=== PATIENT | female | born 1950 | race Caucasian/White ===

== ENCOUNTER 2022-11-06 09:46 | Outpatient (REF) | payer MEDICARE, OTHER, SELFPAY ==
--- NOTE | ~2022-11-06 | XR_ITS ---
EXAMINATION: XR LUMBOSACRAL SPINE CLINICAL INFORMATION: Spondylolisthesis, lumbar region COMPARISON: None available. TECHNIQUE: 4 views of the lumbar spine, inclusive of flexion and extension views, were obtained. FINDINGS: The bones are diffusely demineralized. There is marked curve of the lumbar spine, convex left. This is somewhat limits evaluation of disc space heights. There are 5 nonrib-bearing lumbar-type vertebral bodies. The height of the lumbar vertebral bodies is well-maintained. There is slight anterior wedge compression of T11. There is disc space narrowing with marginal osteophyte formation at L1-L2, L3-L4, and L4-L5. There is multilevel degenerative facet joint disease, marked at L4-L5 and L5-S1. There is grade 1 anterolisthesis of L4 with respect to L5 and retrolisthesis of L2 with respect to L3 which slightly decreases on flexion is unchanged on extension. A 0.7 cm sclerotic density projects over the mid sacrum on the lateral view. XR/XR lumbar spine 4V min IMPRESSION: 1. Marked curve of the lumbar spine, convex left. 2. Multilevel degenerative disc disease and degenerative facet joint disease. 3. Retrolisthesis of L2 with respect to L3 and grade 1 anterolisthesis of L4 with respect to L5, as discussed above. 4. 0.7 cm sclerotic density projecting over the mid sacrum on the lateral view.
== END 2022-11-06 09:47 | disposition home or self-care (01) ==
LOC: HO.HOSX 09:46
PROVIDERS: Visit Provider Neurological Surgery
DX: M48.062 Spinal stenosis, lumbar region with neurogenic claudication (principal); M41.56 Other secondary scoliosis, lumbar region; M43.16 Spondylolisthesis, lumbar region
CPT/HCPCS: 72110; 99202

== ENCOUNTER 2022-11-06 09:46 | Outpatient (AMB) | payer MEDICARE, OTHER, SELFPAY ==
--- NOTE | 2022-11-06 10:14 | HO.SPINEOV ---
Intake Intake Visit Reasons: Back pain Intake Note: Mrs. Vazquez is here today c/o back pain. MRI done at [facility]/brought [facility]. Dietitian Consultant Required: No Assessment & Plan Assessment & Plan (1) Lumbar stenosis with neurogenic claudication: Code(s): M48.062 - Spinal stenosis, lumbar region with neurogenic claudication Plan: Dear colleague Thank you for referring Deya Vazquez to the office today with a chief complaint of right thigh pain and weakness. HPI: This 72-year-old female has a long history of back pain for which she received injections. Two years ago her symptoms change. Radicular symptoms became more prominent. She is describing a severe pain that starts on the right side of her back and then wraps around her hip to the front of her thigh. Initially, the pain was so severe that she could not sneeze or cough. She also noticed weakness of her right leg. She was able to push 50 lb easily but cannot longer do that with her right leg. She had an L4-5 injection done in September which reduced her radicular pain significantly. The weakness persists. She saw Dr. Hope for this problem and is seeing me for a 3rd opinion. The following conservative treatment options were tried without success antiinflammatories, tylenol, physician guided home exercise plan, cortisone shots, aqua therapy PMH: Cervical fusion, right knee replacement, appendectomy Social history: Nonsmoker Medications: Address the 10, pantoprazole, , chlorthalidone Allergies: NKDA Physical Exam: Pleasant female. On inspection there is atrophy of the tibialis anterior muscle on the right. Motor exam shows a grade 4 5 weakness of the iliopsoas on the right side. The remainder of the muscle groups are intact. Sensory exam is intact. No pathological reflexes. Gait is undisturbed. Straight leg raise negative Radiological Studies: MRI done at [facility] on 01/20/2022 shows a grade 1-2 L4-5 spondylolisthesis with severe spinal stenosis and bilateral L4 foraminal stenosiss. There is moderate L2-3 and L3-4 spinal stenosis with severe right L2 and L3 foraminal stenosis associated with a lumbar degenerative scoliosis. The MRI findings are confirmed with a standing x-ray. Impression/Plan: This patient is most likely symptomatic from her grade 2 L4-5 spondylolisthesis with severe central and foraminal stenosis. Unfortunately, a simple laminotomy and foraminotomy is in my opinion not the right choice. I offered her a minimally invasive correction of the L4-5 spondylolisthesis to indirectly decompress the central canal and exiting L4 nerve roots. She is aware that additional surgery is required to correct the L2-L4 scoliosis. Currently, the pain is controlled. She scheduled to undergo a 2nd epidural steroid injection in December. She will return to my office if the radiculopathy returns despite the injections. Thank you for allowing me to participate in your patients care. total time spent was 50 minutes in counseling ,coordination of plan, personal review of imaging, surgical decision making and subsequent plan David Powell MD, PhD Spine Fellowship Trained Neurosurgeon Director, [facility] [place] [facility] (2) Scoliosis of lumbar region due to degenerative disease of spine in adult: Code(s): M41.56 - Other secondary scoliosis, lumbar region (3) Spondylolisthesis, lumbar region: Code(s): M43.16 - Spondylolisthesis, lumbar region Orders: Orders XR lumbar spine 4V min Today M41.56 - Other secondary scoliosis, lumbar region, M43.16 - Spondylolisthesis, lumbar region, M48.062 - Spinal stenosis, lumbar region with neurogenic claudication Coding Level of Care Code New Pt Level 4 (74392) Diagnoses Lumbar stenosis with neurogenic claudication M48.062 Scoliosis of lumbar region due to degenerative disease of spine in adult M41.56 Spondylolisthesis, lumbar region M43.16
== END 2022-11-06 10:53 | disposition home or self-care (01) ==
PROVIDERS: PCP Registered Nurse; Visit Provider Neurological Surgery
DX: M48.062 Spinal stenosis, lumbar region with neurogenic claudication (principal); M41.56 Other secondary scoliosis, lumbar region; M43.16 Spondylolisthesis, lumbar region
CPT/HCPCS: 99204

== ENCOUNTER 2023-06-25 14:26 | Outpatient (AMB) | payer MEDICARE, SELFPAY ==
--- NOTE | 2023-06-25 15:52 | A.SPINEOV_ITS ---
Intake Intake Visit Reasons: discuss possible surgery Intake Note: Ms. Vazquez is here today to discuss possible surgery. Wire Products Inspector Required: No Assessment & Plan Assessment & Plan (1) Scoliosis of lumbar region due to degenerative disease of spine in adult: Code(s): M41.56 - Other secondary scoliosis, lumbar region (2) Lumbar stenosis with neurogenic claudication: Code(s): M48.062 - Spinal stenosis, lumbar region with neurogenic claudication Plan Dear colleague, On 06/25/2023, I saw for follow-up Deya Davenport. She stands in my office crying from pain radiating into her right thigh and severe back pain, especially in the coccyx area. The pain is much worse than the last time I saw. She recently had a prednisone course which gave her relief for 2 days. She scheduled for an additional epidural steroid injection and possible facet block. It is clear that this patient needs an intervention to address her back pain and lumbar radiculopathy. She has a lumbar degenerative scoliosis from L to L5 with a lateral listhesis at L3-4 and severe foraminal stenosis at L2-L3 and L4 on the right side. In addition she has an grade 2 L4-5 spondylolisthesis. I am 90% sure that her symptoms are related to the grade 2 L4-5 spondylolisthesis but I can not fully exclude involvement of the other 2 levels, especially L3-L4. Therefore based on her current clinical condition, I think it is more appropriate to perform an L2-L5 oblique lumbar interbody fusion instead of doing the L4-5 level only. She is scheduled for August 04. She will get clearance from her lead pharmacy technician and primary care physician. We spent 35 minutes in this consult to discuss imaging and plan of care. David Powell MD, PhD Spine Fellowship Trained Neurosurgeon Director, [facility] [place] [facility] Coding Level of Care Code Est Pt Level 4 (91723) Diagnoses Scoliosis of lumbar region due to degenerative disease of spine in adult M41.56 Lumbar stenosis with neurogenic claudication M48.062
== END 2023-06-25 16:23 | disposition home or self-care (01) ==
PROVIDERS: PCP Registered Nurse; Visit Provider Neurological Surgery
DX: M41.56 Other secondary scoliosis, lumbar region (principal); M48.062 Spinal stenosis, lumbar region with neurogenic claudication
CPT/HCPCS: 99214

== ENCOUNTER → 2023-06-25 14:26 | Outpatient (BNVA) | payer MEDICARE, SELFPAY | PROVIDERS: PCP Registered Nurse; Visit Provider Neurological Surgery | DX: M41.56 Other secondary scoliosis, lumbar region (principal); M48.062 Spinal stenosis, lumbar region with neurogenic claudication | CPT/HCPCS: 99212 ==

== ENCOUNTER 2023-07-29 05:52 | Inpatient (IN) | payer MEDICARE, SELFPAY ==
--- NOTE | 2023-07-28 14:21 | P.CONAN_ITS ---
Documented by User: Janet Oneil NP 07/28/23 14:25 HPI - Anesthesia Eval Consult details Narrative: 73yo F for L2-5 Oblique Lumbar Interbody Fusion Pulmo cleared Medically cleared Cardiac cleared PMFSH Active Problems Active Problems: All Active Problems Lumbar stenosis with neurogenic claudication (Acute) Scoliosis of lumbar region due to degenerative disease of spine in adult (Acute) Spondylolisthesis, lumbar region (Acute) Past Medical History Medical History HTN (hypertension) History of endometrial biopsy Hemorrhage of rectum and anus Concussion Impaired fasting glucose Palpitations History of headache Fibromyositis Lumbar radiculopathy Back pain Degenerative, intervertebral disc, cervical Shoulder joint pain Osteoarthritis of knee UTI (urinary tract infection) Irritable bowel syndrome COPD (chronic obstructive pulmonary disease) Hyperlipidemia Vitamin D deficiency Herpes simplex Surgical History Surgical History Hx of cataract surgery History of conization of cervix H/O colonoscopy History of total right knee replacement History of esophagogastroduodenoscopy (EGD) H/O excision of lamina of cervical vertebra for decompression of spinal cord Hx of appendectomy Hx of tonsillectomy History of abdominoplasty Hx of carpal tunnel repair Hx of breast biopsy Hx of tubal ligation Social History Social History Patient Tobacco Use Status: Former Tobacco user Quit Date: 1983 Tobacco use type: Cigarette Years Smoked: 10 Smoked in Last 30 Days: No Use of substances other than those prescribed or required for medical reasons: No Are you DNR?: No Advance Directives: No Advance Directives Information Provided: No Meds Allergies Allergy/AdvReac Type Severity Reaction Status Date / Time diphenhydramine AdvReac Mild Agitated Verified 07/29/23 06:17 meloxicam AdvReac Mild Vomiting Verified 07/29/23 06:17 Home Medications ?Medication ?Instructions ?Recorded ?Confirmed ?Last Taken ?Type acetaminophen 500 mg tablet 500 mg PO Q6H PRN Outbreak 07/25/23 07/29/23 07/27/23 History albuterol sulfate 90 mcg/actuation 2 puff inhalation Q6H PRN wheezing 07/25/23 07/29/23 Unknown History aerosol inhaler atorvastatin 20 mg tablet 20 mg PO DAILY 07/25/23 07/29/23 07/29/23 History biotin 5 mg capsule 5 mg PO DAILY 07/25/23 07/29/23 07/27/23 History chlorthalidone 25 mg tablet 25 mg PO DAILY 07/25/23 07/29/23 07/29/23 History clonazepam 0.5 mg tablet 0.5 mg PO DAILY PRN Anxiety 07/25/23 07/29/23 Unknown History multivitamin 1 tab PO DAILY 07/25/23 07/29/23 07/27/23 History pantoprazole 40 mg tablet,delayed 40 mg PO DAILY 07/25/23 07/29/23 07/29/23 History release valacyclovir 1 gram tablet 1,000 mg PO Q12H 07/25/23 07/29/23 07/24/23 History Exam Pertinent Lab Results Pertinent Lab Results: BMP and CBC from outside facility 06/2023 WNL Narrative Narrative: EKG 07/2023 NSR @ 76 Assessment and Plan Assessment Anesthesia Assessment: Chart Reviewed Documented by User: Giovanna Jeff MD 07/29/23 08:09 [facility] Past Medical History Medical History HTN (hypertension) History of endometrial biopsy Hemorrhage of rectum and anus Concussion Impaired fasting glucose Palpitations History of headache Fibromyositis Lumbar radiculopathy Back pain Degenerative, intervertebral disc, cervical Shoulder joint pain Osteoarthritis of knee UTI (urinary tract infection) Irritable bowel syndrome COPD (chronic obstructive pulmonary disease) Hyperlipidemia Vitamin D deficiency Herpes simplex Surgical History Surgical History Hx of cataract surgery History of conization of cervix H/O colonoscopy History of total right knee replacement History of esophagogastroduodenoscopy (EGD) H/O excision of lamina of cervical vertebra for decompression of spinal cord Hx of appendectomy Hx of tonsillectomy History of abdominoplasty Hx of carpal tunnel repair Hx of breast biopsy Hx of tubal ligation History of Problems with Anesthesia: No Social History Social History Patient Tobacco Use Status: Former Tobacco user Quit Date: 1983 Tobacco use type: Cigarette Years Smoked: 10 Smoked in Last 30 Days: No Use of substances other than those prescribed or required for medical reasons: No Are you DNR?: No Advance Directives: No Advance Directives Information Provided: No Meds Allergies Allergy/AdvReac Type Severity Reaction Status Date / Time diphenhydramine AdvReac Mild Agitated Verified 07/29/23 06:17 meloxicam AdvReac Mild Vomiting Verified 07/29/23 06:17 Home Medications ?Medication ?Instructions ?Recorded ?Confirmed ?Last Taken ?Type acetaminophen 500 mg tablet 500 mg PO Q6H PRN Outbreak 07/25/23 07/29/23 07/27/23 History albuterol sulfate 90 mcg/actuation 2 puff inhalation Q6H PRN wheezing 07/25/23 07/29/23 Unknown History aerosol inhaler atorvastatin 20 mg tablet 20 mg PO DAILY 07/25/23 07/29/23 07/29/23 History biotin 5 mg capsule 5 mg PO DAILY 07/25/23 07/29/23 07/27/23 History chlorthalidone 25 mg tablet 25 mg PO DAILY 07/25/23 07/29/23 07/29/23 History clonazepam 0.5 mg tablet 0.5 mg PO DAILY PRN Anxiety 07/25/23 07/29/23 Unknown History multivitamin 1 tab PO DAILY 07/25/23 07/29/23 07/27/23 History pantoprazole 40 mg tablet,delayed 40 mg PO DAILY 07/25/23 07/29/23 07/29/23 History release valacyclovir 1 gram tablet 1,000 mg PO Q12H 07/25/23 07/29/23 07/24/23 History Exam Airway Mallampati Class: II TM Dist: >3cm Neck ROM: Limited Loose/Missing/Broken Teeth: No Heart: RRR Lungs: CTA Assessment and Plan Assessment Anesthesia Assessment: Anesthesia Plan Discussed Final Anesthetic Review History of Problems with Anesthesia: No NPO: Yes ASA Class: II Final Preanesthetic Review: Meds/Allgs Chart Reviewed, Consent Obtained/Reviewed and Anes Risks/Benef Reviewed Patient Risk: Low Procedure Risk: Intermediate Anesthetic Plan Anesthetic Plan: GA Disposition: Standard PACU
[2023-07-29] VITALS (15 sets, daily range): BP systolic 102–141; BP diastolic 55–76; PULSE 61–81; RESP 14–20; TEMP 36.1–36.8; O2SAT 94–100; BMI 28.6
--- NOTE | ~2023-07-29 | FL_ITS ---
INDICATION: Intraoperative fluoroscopy. FLUOROSCOPY: Fluoroscopy Time: 0.5 minutes Dose/air kerma: 24.3 mGy Images saved: 4 FINDINGS: Multiple intraoperative fluoroscopic images are submitted during surgical procedure of the lumbar spine. Correlation with operative report. Evaluation is limited secondary to fluoroscopic technique. IMPRESSION: Intra-operative fluoroscopic imaging provided by radiology during surgical procedure of the lumbar spine. Please refer to operative note for further information.
--- NOTE | ~2023-07-29 | XR_ITS ---
EXAMINATION: XR LUMBOSACRAL SPINE CLINICAL INFORMATION: Post surgery COMPARISON: Previous lumbar spine x-ray November 2022 TECHNIQUE: Three views of the lumbosacral spine. FINDINGS: New posterior fusion hardware with rods and bilateral transpedicular screws at L3-L5 and interbody fusion hardware at the L3-L4 and L4-L5 disc spaces. Curvature of the lower lumbar spine to the left. Mild anterior subluxation of L4 with respect to L3 and L5 measuring 2 mm similar to previous exam. Degenerative spondylosis and degenerative disc disease of the lower thoracic and more proximal lumbar spine. No fracture or dislocation. There is question of free air under both diaphragms. XR/XR lumbar spine 2-3V IMPRESSION: New postsurgical changes from L3 to L5. Question free air. Follow-up x-ray or CT recommended.
--- OUTSIDE RECORDS SUMMARY | 2023-07-29 05:56 | XMS_ITS | Continuity of Care Document ---
Author Organization [facility] Neurosur[facility] y Address [address] [place] [address] [address], [address] [place] [address]- Care Team Providers Care Dog Pound Attendant Name Role Phone Rabia Rivera MD Primary Care Physic sade Encounter [facility] [place]s): 07/16/22 - 07/23/[address], [address] [place] [address]- Attending Physician: Kendall Garrtet MD Referring Physician: Rabia Rivera MD Allergies, Adverse Reactions, Alerts No Known Allergies Medications atorvastatin 10 mg oral tablet 1 tablet = 10 mg, By Mouth, Daily, 0 Refills, Maintenance, 04/28/20 15:58:00 EST, Partial fill uponpatient request if the prescription is for a schedule II opioid drug. Start Date: 04/28/20 Status: Ordered Biotin By Mouth, Daily, pt states she is taking 5000 units, 0 Refills, Maintenance, 04/10/10 15:54:14 EST Start Date: 04/10/10 Status: Ordered Brovana 15 mcg/2 mL inhalation solution 1 each, Neb, 2 times a day, # 60 each, 5 Refills, Maintenance, 06/03/22 17:52:00 EST, Solution, [facility]/pharmacy #[id number], J45. 0, 147, cm, 06/03/22 14:49:00 EST, Height, 62.2, kg, 11/13/21 15:28:00 EDT, Dry Weight Start Date: 06/03/22 Status: Ordered budesonide 0.5 mg/2 mL inhalation suspension 0.5 mg, 2, mL, Neb, 2 times a day, # 120 mL, Refills 5, Tot. Refills 5, Maintenance, 06/03/22 17:52:00 EST, Suspension, Route to Pharmacy Electronically, [id number], [facility]/pharmacy #[id number], J45. 0, 147, cm, 06/03/22 14:49:00 EST,... Start Date: 06/03/22 Stop Date: 11/30/22 Status: Ordered chlorthalidone 25 mg oral tablet 25 mg, 1, tablet, By Mouth, Daily, # 30 tablet, Refills 0, Maintenance, 11/16/21 15:28:00 EDT, Partial fill upon patient request if the prescription is for a schedule II opioid drug. Start Date: 11/16/21 Status: Ordered [facility] Refills 0, Maintenance, 06/19/22 10:38:00 EDT, Supply Start Date: 06/19/22 Status: Ordered Multivitamin By Mouth, Daily, 0 Refills, Maintenance Start Date: 04/10/10 Status: Ordered Nebulizer/Compressor See Instructions, # 1 each, Refills 11, Tot. Refills 11, Maintenance, E0570 Nebulizer A7003 Neb Disp set A7014 Neb Non-Disp Filter A7005 Neb non-Disp set A7015 Aerosol Mask A7013 NEb Disp Filter length of need lifetime 99 months Dx Asthma J45.909, ... Start Date: 06/04/22 Status: Ordered oxyCODONE 5 mg oral tablet 5 mg, 1, tablet, By Mouth, Every 4 hours, PRN, # 42 tablet, Refills 0, Tot. Refills 0, Maintenance,as needed for pain, 06/19/22 16:30:00 EDT, Route to Pharmacy Electronically, [facility], Partial fill upon patient request if the prescri... Start Date: 06/19/22 Status: Ordered Protonix 40 mg oral delayed release tablet 1 tablet = 40 mg, By Mouth, Daily, # 30 tablet, 0 Refills, Maintenance, 06/03/22 14:51:00 EST, EC Tablet Start Date: 06/03/22 Status: Ordered Sulindac = 200 mg, By Mouth, Daily, 0 Refills, Maintenance, 06/17/22 15:05:00 EDT, Partial fill upon patientrequest if the prescription is for a schedule II opioid drug. Start Date: 06/17/22 Status: Ordered tiZANidine 4 mg oral capsule 1 capsule = 4 mg, By Mouth, Daily at bedtime, # 30 capsule, 0 Refills, Maintenance, 07/16/22 16:34:00 EDT, [facility]/pharmacy #[id number], Partial fill upon patient request if the prescription is for a schedule II opioid drug., 147.3, cm, 07/16/22 13:30:00 EDT, H... Start Date: 07/16/22 Stop Date: 08/15/22 Status: Ordered tiZANidine 4 mg oral tablet 4 mg, 1, tablet, By Mouth, 3 times a day, PRN, # 90 tablet, Refills 0, Tot. Refills 0, Maintenance,Spasm, 06/19/22 16:30:00 EDT, Route to Pharmacy Electronically, [facility], Partial fill upon patient request if the prescription is for... Start Date: 06/19/22 Status: Ordered vidiscal vidiscal, Refills 0, Maintenance, for hair growth, 10/28/18 9:24:51 EDT, Compound Start Date: 10/28/18 Status: Ordered Problem List Condition Confirmation Course Effective Dates Status Health Status Informant Chronic obstructive pulmonary disease (COPD) Confirmed Active Cyst Confirmed Active Female stress incontinence Confirmed Active Hx of abnormal cervical Pap smear Confirmed Active Hx of hypercholesterolemia Confirmed Active Intervertebral disc disorder Confirmed Active Vital Signs Most recent to oldest [Reference Range]: 1 Height 147.3 cm (07/16/22 1:30 PM) Weight 64.1 kg (07/16/22 1:30 PM) Body Mass Index [18.5-24.99 kg/m2] 29.54 kg/m2 *H* (07/16/22 1:30 PM) Social History Social History Type Response Smoking Status Former smoker; Tobac co user in household: No; Other: pt states she quit smoking 30 years ago; entered on: 08/28/15 Sex Patient Care team information Care Team Personnel Name: Rabia Rivera MD Position: [facility] Outreach Member Role: PCP Address: Address: [address] [place] [address] Name: Olman HARPER, Amanda Position: [facility] RN Member Role: Primary Care Nurse Care Team Related Persons Name: LATOYASPKAEFADI Address: home [address] [place] [address] Name: MARY DYSON Name: SHEA DYSON Address: home [address] [place] [address]
--- OUTSIDE RECORDS SUMMARY | 2023-07-29 05:56 | XMS_ITS | Continuity of Care Document ---
Author Organization [facility] Address [address] [place] [id number]- Care Team Providers Care Dinker Name Role Phone Miguel CORNELL, Rabia Haider Primary Care Physic sade Encounter [facility] Date(s): 11/06/21 - 12/06/21 [facility] [address] [place] [id number] Allergies, Adverse Reactions, Alerts No Known Allergies Medications acetaminophen 325 mg oral tablet 975 mg, By Mouth, Every 8 hours, Refills 0, Maintenance, 02/05/21 9:31:00 EDT, Partial fill upon patient request if the prescription is for a schedule II opioid drug. Start Date: 02/05/21 Status: Ordered aspirin 81 mg oral delayed release tablet 81 mg, 1, tablet, By Mouth, Daily, Refills 0, Maintenance, 03/23/19 13:51:44 EST Start Date: 03/23/19 Status: Ordered atorvastatin 10 mg oral tablet 1 tablet = 10 mg, By Mouth, Daily, 0 Refills, Maintenance, 04/28/20 15:58:00 EST, Partial fill uponpatient request if the prescription is for a schedule II opioid drug. Start Date: 04/28/20 Status: Ordered azithromycin 250 mg oral tablet 1 pack/packet, By Mouth, Once, # 6 tablet, 0 Refills, Soft Stop, 11/06/21 12:03:00 EDT, Tablet, [facility]/pharmacy #[id number], Partial fill upon patient request if the prescription is for a schedule II opioid drug., 147, cm, 03/07/21 13:00:00 EST, Height, 63, kg... Start Date: 11/06/21 Status: Ordered Biotin By Mouth, Daily, pt states she is taking 5000 units, 0 Refills, Maintenance, 04/10/10 15:54:14 EST Start Date: 04/10/10 Status: Ordered Breo Ellipta 200 mcg-25 mcg/inh inhalation powder 1 puffs, Inhalation, Daily, j44.9, # 3 each, 3 Refills, Maintenance, 03/14/21 12:25:00 EST, Powder,[employer], 1 puffs Inhalation Daily,Instr:j44.9, 147, cm, 03/07/21 13:00:00 EST, Height,63, kg, 02/03/21 19:39:00 EDT, Dry Weight Start Date: 03/14/21 Status: Ordered calcium carbonate 500 mg (200 mg elemental calcium) oral tablet, chewable 500 mg, 1, tablet, Daily, Refills 0, Maintenance, 03/23/19 13:51:28 EST Start Date: 03/23/19 Status: Ordered chlorthalidone 25 mg oral tablet 25 mg, 1, tablet, By Mouth, Daily, # 30 tablet, Refills 0, Maintenance, 11/16/21 15:28:00 EDT, Partial fill upon patient request if the prescription is for a schedule II opioid drug. Start Date: 11/16/21 Status: Ordered ipratropium CFC free 17 mcg/inh inhalation aerosol 2 puffs, Inhalation, 4 times a day, # 1 each, 6 Refills, Maintenance, 11/16/21 15:33:00 EDT, Aerosol, [facility]/pharmacy #[id number], Partial fill upon patient request if the prescription is for a schedule II opioid drug., 147, cm, 11/16/21 15:21:00 EDT, Height,... Start Date: 11/16/21 Stop Date: 06/14/22 Status: Ordered Medrol 4 mg oral tablet 1 pack/packet, By Mouth, Once, # 21 tablet, 0 Refills, Soft Stop, 11/06/21 12:02:00 EDT, Tablet, [facility]/pharmacy #[id number], Partial fill upon patient request if the prescription is for a schedule II opioid drug., 147, cm, 03/07/21 13:00:00 EST, Height, 63, k... Start Date: 11/06/21 Status: Ordered MSM 1000mg MSM 1000mg, Refills 0, Maintenance, 10/28/18 9:23:26 EDT, Compound Start Date: 10/28/18 Status: Ordered Multivitamin By Mouth, Daily, 0 Refills, Maintenance Start Date: 04/10/10 Status: Ordered Symbicort 80mcg/4.5mcg Inhaler 2, puffs, Inhalation, 2 times a day, # 1 each, Refills 6, Tot. Refills 6, Maintenance, 11/16/21 15:31:00 EDT, Aerosol, Route to Pharmacy Electronically, [id number], [facility]/pharmacy #[id number], 147, cm, 11/16/21 15:21:00 EDT, Height,... Start Date: 11/16/21 Stop Date: 06/14/22 Status: Ordered Trelegy Ellipta 200 mcg-62.5 mcg-25 mcg/inh inhalation powder 1 puffs, Inhalation, Daily, at the same time every day, # 1 each, 6 Refills, Maintenance, 11/06/21 12:01:00 EDT, Powder, [facility]/pharmacy #[id number], Partial fill upon patient request if the prescription is for a schedule II opioid drug., 1 puffs Inhalation Da... Start Date: 11/06/21 Stop Date: 06/04/22 Status: Ordered Turmeric = 500 mg, By Mouth, Daily, 0 Refills, Maintenance, 03/23/19 13:51:51 EST Start Date: 03/23/19 Status: Ordered vidiscal vidiscal, Refills 0, Maintenance, 10/28/18 9:24:51 EDT, Compound Start Date: 10/28/18 Status: Ordered Problem List Condition Effective Dates Status Health Status Inform ant Chronic obstructive pulmonar y disease (COPD)(Confirmed) Active Cyst(Confirmed) Active Female stress incontinence(Confirmed) Active Hx of abnormal cervical Pap smear(Confirmed) Active Hx of hypercholesterolemia(Confirmed) Active Intervertebral disc disorder(Confirmed) Active Severe obesity(Confirmed) Active Social History Social History Type Response Smoking Status Former smoker; Tobac co user in household: No; Other: pt states she quit smoking 30 years ago; entered on: 08/28/15 Sex Care Team Personnel Name: Miguel CORNELL, Rabia Haider Address: [address] [place] [id number]
--- OUTSIDE RECORDS SUMMARY | 2023-07-29 05:56 | XMS_ITS | Continuity of Care Document ---
Author Organization [facility] Address [address] [place] [address] licha, [address] [place] [address]- Care Team Providers Care Carbon Paper Coating Machine Setter Name Role Phone Miguel CORNELL, Rabia Haider Primary Care Physic sade Encounter [facility] Date(s): 07/17/22 - 08/16/[address], [address] [place], [place] [address] Allergies, Adverse Reactions, Alerts No Known Allergies [...] 5 Refills, Maintenance, 06/03/22 17:52:00 EST, Solution, [id number], J45. 0, 147, cm, 06/03/22 14:49:00 EST, Height, 62.2, kg, 11/13/21 15:28:00 EDT, Dry Weight Start Date: 06/03/22 Status: Ordered budesonide 0.5 mg/2 mL inhalation suspension 0.5 mg, 2, mL, Neb, 2 times a day, # 120 mL, Refills 5, Tot. Refills 5, Maintenance, 06/03/22 17:52:00 EST, Suspension, Route to Pharmacy Electronically, [id number], [id number], J45. 0, 147, cm, 06/03/22 14:49:00 EST,... Start Date: 06/03/22 Stop Date: 11/30/22 Status: Ordered chlorthalidone 25 mg oral tablet 25 mg, 1, tablet, By Mouth, Daily, # 30 tablet, Refills 0, Maintenance, 11/16/21 15:28:00 EDT, Partial fill upon patient request if the prescription is for a schedule II opioid drug. Start Date: 11/16/21 Status: [facility], Maintenance, 06/19/22 10:38:00 EDT, [...] 06/19/22 16:30:00 EDT, Route to Pharmacy Electronically, [facility], Partial fill upon patient request if the [...] capsule, 0 Refills, Maintenance, 07/16/22 16:34:00 EDT, [id number], Partial fill upon patient request if the prescription is for a schedule II opioid drug., 147.3, cm, 07/16/22 13:30:00 EDT, H... Start Date: 07/16/22 Stop Date: 08/15/22 Status: Ordered tiZANidine 4 mg oral tablet 4 mg, 1, tablet, By Mouth, 3 times a day, PRN, # 90 tablet, Refills 0, Tot. Refills 0, Maintenance,Spasm, 06/19/22 16:30:00 EDT, Route to Pharmacy Electronically, [facility], Partial fill upon patient [...] Confirmed Active Intervertebral disc disorder Confirmed Active Social History Social History Type Response Smoking Status Former smoker; Tobac co user in household: No; Other: pt states she quit smoking 30 years ago; entered on: 08/28/15 Sex Patient Care team information Care Team Personnel Name: Miguel CORNELL, Rabia Haider Position: [facility] Outreach Member Role: PCP Address: Address: [address] [place] [address], [place], [place] [address] Name: Amanda Thurman RN Position: [facility] RN Member Role: Primary Care Nurse Care Team Related Persons Name: FADI DYSON Address: home [address] [place] [address] Name: MARY DYSON Name: SHEA DYSON Address: home [address] [place] [address]
--- OUTSIDE RECORDS SUMMARY | 2023-07-29 05:56 | XMS_ITS | Continuity of Care Document ---
Author Organization [facility] Address [address] [place] [address] l[address]a, [address] [place] [address]- Care Team Providers Care Hydro Sprayer Operator Name Role Phone Reece Villeda Primary Care Physician Encounter [facility] Date(s): 12/20/22 - 01/19/23 [facility] [address] [place] [address] Drive, [address] [place], [place] [address] Allergies, Adverse Reactions, Alerts No [...] 5 Refills, Maintenance, 06/03/22 17:52:00 EST, Solution, [facility]/pharmacy #[id number], J45. 0, 147, cm, 06/03/22 14:49:00 EST, Height, 62.2, kg, 11/13/21 15:28:00 EDT, Dry Weight Start Date: 06/03/22 Status: Ordered budesonide 0.5 mg/2 mL inhalation suspension 0.5 mg, 2, mL, Neb, 2 times a day, # 120 mL, Refills 5, Tot. Refills 5, Maintenance, 06/03/22 17:52:00 EST, Suspension, Route to Pharmacy Electronically, [id number], [facility]/pharmacy #[id number], J45. 0, 147, cm, 06/03/22 14:49:00 EST,... Start Date: 06/03/22 Stop Date: 11/30/22 Status: Ordered chlorthalidone 25 mg oral tablet 25 mg, 1, tablet, By Mouth, Daily, # 30 tablet, Refills 0, Maintenance, 11/16/21 15:28:00 EDT, Partial fill upon patient request if the prescription is for a schedule II opioid drug. Start Date: 11/16/21 Status: Ordered [facility] [place] Refills 0, Maintenance, 06/19/22 10:38:00 EDT, [...] J45.909, ... Start Date: 06/04/22 Status: Ordered omeprazole 40 mg oral enteric coated capsule 1 capsule = 40 mg, By Mouth, 2 times a day, report back to Dr Samaniego after > 2 weeks on twice daily therapy to see if cough is better, # 60 capsule, 0 Refills, Maintenance, 10/14/22 15:45:00 EDT, EC Capsule, [facility]/pharmacy #[id number], Partial fill upon george... Start Date: 10/14/22 Stop Date: 11/13/22 Status: Ordered oxyCODONE 5 mg oral tablet 5 mg, 1, tablet, By Mouth, Every 4 hours, PRN, # 42 tablet, Refills 0, Tot. Refills 0, Maintenance,as needed for pain, 06/19/22 16:30:00 EDT, Route to Pharmacy Electronically, [facility], [id number], Partial fill upon patient request if the [...] capsule, 0 Refills, Maintenance, 07/16/22 16:34:00 EDT, [facility]/pharmacy #[id number], Partial fill upon patient request if the prescription is for a schedule II opioid drug., 147.3, cm, 07/16/22 13:30:00 EDT, H... Start Date: 07/16/22 Stop Date: 08/15/22 Status: Ordered tiZANidine 4 mg oral tablet 4 mg, 1, tablet, By Mouth, 3 times a day, PRN, # 90 tablet, Refills 0, Tot. Refills 0, Maintenance,Spasm, 06/19/22 16:30:00 EDT, Route to Pharmacy Electronically, [facility], Partial fill upon patient [...] Care team information Care Team Personnel Name: Amanda Thurman RN Position: S RN Member Role: Primary Care Nurse Name: Reece Villeda Position: Reference Physician Member Role: PCP Address: Address: [address] [place] [address], [address] Care Team Related Persons Name: MARY DYSON Name: LATOYADALLAS CRANDALL Name: SHEA DYSON Address: home [address] [place] [id number]
--- OUTSIDE RECORDS SUMMARY | 2023-07-29 05:56 | XMS_ITS | Continuity of Care Document ---
Author Organization [facility] Address [address] [place] [address]- Care Team Providers Care Sensitizer Name Role Phone Miguel CORNELL, Rabia Haider Primary Care Physic sade [place] [facility] [place] 02/[place] - 03/23/22 [facility] [address] [place] [place] [address]- Attending Physician: Christie Rai Admitting Physician: AdmtrChristie Referring Physician: Admtr, Ar8 Allergies, Adverse Reactions, Alerts No Known Allergies [...] Refills, Soft Stop, 11/06/21 12:03:00 EDT, Tablet, [id number], Partial fill upon patient request if the prescription is for a schedule II opioid drug., 147, cm, 03/07/21 13:00:00 EST, Height, 63, kg... Start Date: 11/06/21 Status: Ordered Biotin By Mouth, Daily, pt states she is taking 5000 units, 0 Refills, Maintenance, 04/10/10 15:54:14 EST Start Date: 04/10/10 Status: Ordered Breo Ellipta 200 mcg-25 mcg/inh inhalation powder 1 inhalation, Inhalation, Daily, # 180 each, 3 Refills, Maintenance, 12/11/21 9:32:00 EDT, [facility]), 90, USE 1 INHALATION BY MOUTH DAILY, 147, cm, 11/16/21 15:21:00 EDT, Height, 62.2, kg, 11/13/21 15:28:00 EDT, Dry W... Start Date: 12/11/21 Status: Ordered calcium carbonate 500 mg (200 [...] 6 Refills, Maintenance, 11/16/21 15:33:00 EDT, Aerosol, [facility]/pharmacy #[id number], Partial fill upon patient request if the prescription is for a schedule II opioid drug., 147, cm, 11/16/21 15:21:00 EDT, Height,... Start Date: 11/16/21 Stop Date: 06/14/22 Status: Ordered Medrol 4 mg oral tablet 1 pack/packet, By Mouth, Once, # 21 tablet, 0 Refills, Soft Stop, 11/06/21 12:02:00 EDT, Tablet, [id number], Partial fill upon patient request if [...] 15:31:00 EDT, Aerosol, Route to Pharmacy Electronically, [id number], [facility]/pharmacy #[id number], 147, cm, 11/16/21 15:21:00 EDT, Height,... Start Date: 11/16/21 Stop Date: 06/14/22 Status: Ordered Trelegy Ellipta 200 mcg-62.5 mcg-25 mcg/inh inhalation powder 1 puffs, Inhalation, Daily, at the same time every day, # 1 each, 6 Refills, Maintenance, 11/06/21 12:01:00 EDT, Powder, [facility]/pharmacy #[id number], Partial fill upon patient request [...] Confirmed Active Intervertebral disc disorder Confirmed Active Severe obesity Confirmed Active Social History Social History Type Response Smoking Status Former smoker; Tobac co user in household: No; Other: pt states she quit smoking 30 years ago; entered on: 08/28/15 Sex Patient Care team information Care Team Personnel Name: Miguel CORNELL, Rabia Haider Position: [facility] Outreach Member Role: PCP Address: Address: [address] [place] [address], [place] [address]- Name: Olman HARPER, Amanda Position: [facility] RN Member Role: Primary Care Nurse Care Team Related Persons Name: FADI DYSON Address: home [address] [place] [address] Name: MARY DYSON Name: SHEA DYSON Address: [address] [place] [address]
--- OUTSIDE RECORDS SUMMARY | 2023-07-29 05:56 | XMS_ITS | Continuity of Care Document ---
Author Organization [facility] Address [address] [place] [address] [address] [place] [address]- Care Team Providers Care Diesel Locomotive Firer Name Role Phone Miguel CORNELL, Rabia Haider Primary Care Physic sade Encounter [facility] Date(s): 07/16/19 - 07/26/19 [facility] [address] [place] [address]- [facility] Attending Physician: Admtr, Christie Allergies, Adverse Reactions, Alerts Substance Reaction Severity Status NKA Active Medications aspirin 81 mg oral delayed release tablet 81 mg, 1, tablet, By Mouth, Daily, Refills 0, Maintenance, 03/23/19 13:51:44 EST Start Date: 03/23/19 Status: Ordered atorvastatin 20 mg oral tablet 1 tablet = 20 mg, By Mouth, Daily, # 90 tablet, 3 Refills, Maintenance, 06/11/19 14:17:00 EST, Tablet, [facility], 145.4, cm, 05/05/19 14:35:00 EST, Height, 64.7, kg, 05/05/19 14:35:00 EST,Dry Weight Start Date: 06/11/19 Stop Date: 06/05/20 Status: Ordered Biotin By Mouth, Daily, pt states she is taking 5000 units, 0 Refills, Maintenance, 04/10/10 15:54:14 EST Start Date: 04/10/10 Status: Ordered Breo Ellipta 200 mcg-25 mcg/inh inhalation powder 1 puffs, Inhalation, Daily, j44.9, # 3 each, 3 Refills, Maintenance, 04/29/19 14:39:00 EST, Powder,[facility], 1 puffs Inhalation Daily,Instr:j44.9, 145.4, cm, 03/23/19 13:50:00 EST, Height, 65, kg, 11/23/18 16:33:00 EDT, Dry Weight Start Date: 04/29/19 Status: Ordered calcium carbonate 500 mg (200 mg elemental calcium) oral tablet, chewable 500 mg, 1, tablet, Daily, Refills 0, Maintenance, 03/23/19 13:51:28 EST Start Date: 03/23/19 Status: Ordered diltiazem 120 mg/24 hours oral capsule, extended release 120 mg, 1, capsule, By Mouth, Daily, # 30 capsule, Refills 11, Tot. Refills 11, Maintenance, 09/08/18 8:31:57 EDT, Route to Pharmacy Electronically, [id number], [facility]/pharmacy#[id number] Start Date: 09/08/18 Status: Ordered Medrol 4 mg oral tablet 1 pack/packet, By Mouth, Once, # 21 tablet, 0 Refills, Soft Stop, 02/09/19 17:00:55 EST, Tablet Start Date: 02/09/19 Status: Ordered MSM 1000mg MSM 1000mg, Refills 0, Maintenance, 10/28/18 9:23:26 EDT, Compound Start Date: 10/28/18 Status: Ordered Multivitamin By Mouth, Daily, 0 Refills, Maintenance Start Date: 04/10/10 Status: Ordered Turmeric = 500 mg, By [...] of hypercholesterolemia(Confirmed) Active Intervertebral disc disorder(Confirmed) Active Social History Social History Type Response Smoking Status Former smoker; Tobac co user in household: No; Other: pt states she quit smoking 30 years ago; entered on: 08/28/15 Sex
--- OUTSIDE RECORDS SUMMARY | 2023-07-29 05:56 | XMS_ITS | Continuity of Care Document ---
Author Organization [facility] Address [address] [place] [address]- Care Team Providers Care Physical Trainer Name Role Phone Miguel CORNELL, Rabia Haider Primary Care Physic sade [place] [facility] [place] 06/03/22 - 07/03/22 [facility] [address] [place] [address]- Attending Physician: Christie Rai Admitting Physician: AdmChristie monahan Referring Physician: Admtr ArSusan Allergies, Adverse Reactions, Alerts No Known Allergies [...] 5 Refills, Maintenance, 06/03/22 17:52:00 EST, Solution, [id number], J45. 0, 147, cm, 06/03/22 14:49:00 EST, Height, 62.2, kg, 11/13/21 15:28:00 EDT, Dry Weight Start Date: 06/03/22 Status: Ordered budesonide 0.5 mg/2 mL inhalation suspension 0.5 mg, 2, mL, Neb, 2 times a day, # 120 mL, Refills 5, Tot. Refills 5, Maintenance, 06/03/22 17:52:00 EST, Suspension, Route to Pharmacy Electronically, [id number], [facility]/pharmacy #[id number], J45. 0, 147, cm, 06/03/22 14:49:00 EST,... Start Date: 06/03/22 Stop Date: 11/30/22 Status: Ordered chlorthalidone 25 mg oral tablet 25 mg, 1, tablet, By Mouth, Daily, # 30 tablet, Refills 0, Maintenance, 11/16/21 15:28:00 EDT, Partial fill upon patient request if the prescription is for a schedule II opioid drug. Start Date: 11/16/21 Status: Ordered [facility] [place] Refills 0, Maintenance, [...] 06/19/22 16:30:00 EDT, Route to Pharmacy Electronically, [facility], Partial fill upon patient request [...] 06/17/22 Status: Ordered tiZANidine 4 mg oral tablet 4 mg, 1, tablet, By Mouth, 3 times a day, PRN, # 90 tablet, Refills 0, Tot. Refills 0, Maintenance,Spasm, 06/19/22 16:30:00 EDT, Route to Pharmacy Electronically, [facility], Partial fill upon patient [...] Personnel Name: Miguel CORNELL, Rabia Haider Position: [facility] Outreach Member Role: PCP Address: Address: [address] [place] [address], [address] Name: Amanda Thurman RN Position: [facility] RN Member Role: Primary Care Nurse Care Team Related Persons Name: FADI DYSON Address: home [address] [place] [address] Name: MARY DYSON Name: SHEA DYSON Address: home [address] [place] [address]
--- OUTSIDE RECORDS SUMMARY | 2023-07-29 05:56 | XMS_ITS | Continuity of Care Document ---
Author Organization [facility] Address [address] [place] [address]- Care Team Providers Care Natural Resources Manager Name Role Phone Miguel CORNELL, Rabia Haider Primary Care Physic sade En[place] [facility] Date(s): 05/05/19 - 05/12/19 [facility] DEPART[facility] CHAIR Oncology [address] [place] [address]- [facility] Attending Physician: Salvador Basurto MD Admitting Physician: Salvador Basurto MD Referring Physician: Rabia Rivera MD Allergies, Adverse Reactions, Alerts Substance Reaction Severity Status NKA Active Medications aspirin 81 mg oral delayed release tablet 81 mg, 1, tablet, By Mouth, Daily, Refills 0, Maintenance, 03/23/19 13:51:44 EST Start Date: 03/23/19 Status: Ordered atorvastatin 20 mg oral tablet 1 tablet = 20 mg, By Mouth, Daily, Fasting lipid panel in APRIL, # 30 tablet, 11 Refills, Maintenance, Tablet, Route to Pharmacy Electronically, [id number], [facility]/pharmacy #[id number] Start Date: 03/02/18 Stop Date: 02/25/19 Status: Ordered Biotin By Mouth, Daily, pt [...] 09/08/18 8:31:57 EDT, Route to Pharmacy Electronically, [id number], [facility]/pharmacy#2339 Start Date: 09/08/18 Status: Ordered Medrol [...] of hypercholesterolemia(Confirmed) Active Intervertebral disc disorder(Confirmed) Active Vital Signs Most recent to oldest [Reference Range]: 1 Height 145.4 cm (05/05/19 2:35 PM) Weight 64.7 kg (05/05/19 2:35 PM) Oxygen Saturation [94-100 %] 98 % (05/05/19 2:35 PM) Pulse Rate [55-90 bpm] 72 bpm (05/05/19 2:35 PM) Body Mass Index [18.5-24.99] 30.6 *>HHI* (05/05/19 2:35 PM) Blood Pressure [90-138/55-84 mm Hg] 121/ 63mm Hg (05/05/19 2:35 PM) Respiratory Rate [16-30 br/min] 16 br/mi n (05/05/19 2:35 PM) Temperature [96.8-100.4 DegF] 98.9 DegF (05/05/19 2:35 PM) Mode of Delivery (Oxygen) Room air (05/05/19 2:35 PM) Blood pressure sites Arm, right (05/05/19 2:35 PM) Temperature Route Oral (05/05/19 2:35 PM) Dry Weight 64.7 kg (05/05/19 2:35 PM) Weight Obtained Via Standing scale (05/05/19 2:35 PM) Dry Weight Obtained Via Standing scale (05/05/19 2:35 PM) Social History Social History Type Response Smoking Status Former smoker; Tobac co user in household: No; Other: pt states she quit smoking 30 years ago; entered on: 08/28/15 Sex
--- OUTSIDE RECORDS SUMMARY | 2023-07-29 05:56 | XMS_ITS | Continuity of Care Document ---
Author Organization [facility] Address [address] [place] [address] [address] [place] [address]- Care Team Providers Care Economics Faculty Member Name Role Phone Miguel CORNELL, Rabia Haider Primary Care Physic sade [place] [facility] [place]07[place]21 - 04/06/21 [facility] [address] [place] [address]- Attending Physician: Admtr, Ar8 Allergies, Adverse Reactions, Alerts Substance Reaction Severity Status NKA Active Medications acetaminophen 325 mg oral tablet 975 [...] 13:51:28 EST Start Date: 03/23/19 Status: Ordered MSM 1000mg MSM 1000mg, Refills [...]
--- OUTSIDE RECORDS SUMMARY | 2023-07-29 05:56 | XMS_ITS | Continuity of Care Document ---
Author Organization [facility] Address [address] [place] [address] [address] [place] [address]- Care Team Providers Care Nuclear Equipment Research Engineer Name Role Phone Rabia Rivera MD Primary Care Physic sade [id number]15[facility] - 02/22/21 [facility] [address] [place] [address]- Attending Physician: Elías Knowles MD Referring Physician: Rabia Rivera MD Allergies, [...] powder 1 puffs, Inhalation, Daily, j44.9, # 1 each, 6 Refills, Maintenance, 01/04/21 14:45:00 EDT, Powder,[id number], 1 puffs Inhalation Daily,Instr:j44.9, 145.5, cm, 04/28/20 15:56:00 EST, Height,63.59, kg, 04/26/20 8:42:00 EST, Dry Weight Start Date: 01/04/21 Status: Ordered calcium carbonate 500 mg (200 [...] recent to oldest [Reference Range]: 1 Height 147 cm (02/15/21 2:50 PM) Weight 62.36 kg (02/15/21 2:50 PM) Body Mass Index [18.5-24.99] 28.86 *H* (02/15/21 2:50 PM) Temperature [96.8-100.4 DegF] 98.0 DegF (02/15/21 2:50 PM) Temperature Route Temporal (02/15/21 2:50 PM) Weight Obtained Via Standing scale (02/15/21 2:50 PM) Social History Social History Type Response Smoking Status Former smoker; Tobac co user in household: No; Other: pt states she quit smoking 30 years ago; entered on: 08/28/15 Sex
--- OUTSIDE RECORDS SUMMARY | 2023-07-29 05:56 | XMS_ITS | Continuity of Care Document ---
Author Organization [facility] Address [address] [place] [address] [address], [address] [place] [address]- Care Team Providers Care Custom Clothier Name Role Phone Miguel CORNELL, Rabia Haider Primary Care Physic sade Encounter [facility] Date(s): 07/18/22 - 08/17/[address], [address] [place], [place] [address] Allergies, Adverse Reactions, Alerts No Known Allergies [...] 5 Refills, Maintenance, 06/03/22 17:52:00 EST, Solution, [facility]/pharmacy #[id number], J45. 0, 147, cm, 06/03/22 14:49:00 EST, Height, 62.2, kg, 11/13/21 15:28:00 EDT, Dry Weight Start Date: 06/03/22 Status: Ordered budesonide 0.5 mg/2 mL inhalation suspension 0.5 mg, 2, mL, Neb, 2 times a day, # 120 mL, Refills 5, Tot. Refills 5, Maintenance, 06/03/22 17:52:00 EST, Suspension, Route to Pharmacy Electronically, [id number], [facility]/pharmacy #[id number], J45. 0, 147, cm, 06/03/22 14:49:00 EST,... Start Date: 06/03/22 Stop Date: 11/30/22 Status: Ordered chlorthalidone 25 mg oral tablet 25 mg, 1, tablet, By Mouth, Daily, # 30 tablet, Refills 0, Maintenance, 11/16/21 15:28:00 EDT, Partial fill upon patient request if the prescription is for a schedule II opioid drug. Start Date: 11/16/21 Status: [facility], Maintenance, 06/19/22 10:38:00 EDT, [...] 06/19/22 16:30:00 EDT, Route to Pharmacy Electronically, [facility], Partial fill upon patient request if the [...] capsule, 0 Refills, Maintenance, 07/16/22 16:34:00 EDT, [facility]/pharmacy #[id number], Partial fill upon patient [...] 06/19/22 16:30:00 EDT, Route to Pharmacy Electronically, [facility], Partial fill upon patient [...] Personnel Name: Miguel CORNELL, Rabia Haider Position: [facility] Outreach Member Role: PCP Address: Address: [address] [place] [address], [place], [place] [address] Name: Amanda Thurman RN Position: [facility] RN Member Role: Primary Care Nurse Care Team Related Persons Name: FADI DYSON Address: home [address] [place] [address] Name: MARY DYSON Name: SHEA DYSON Address: [address] [place] [address]
--- OUTSIDE RECORDS SUMMARY | 2023-07-29 05:56 | XMS_ITS | Continuity of Care Document ---
Author Organization [facility]URE[facility] PROFESSION[facility] Oncolog [facility] Address [address] [place] [address]- Care Team Providers Care Tax Evaluator Name Role Phone Miguel CORNELL, Rabia Haider Primary Care Physic sade En[place] [facility] [place] Date(s): 04/19/19 - 04/29/19 [facility] Oncology [address] [place] [address] [facility] Attending Physician: Christie Rai Admitting Physician: Christie aRi Referring Physician: Christie Rai Allergies, Adverse Reactions, Alerts Substance Reaction Severity [...] Refills, Maintenance, Tablet, Route to Pharmacy Electronically, [id number], [facility]/pharmacy #[id number] Start Date: 03/02/18 Stop Date: 02/25/19 [...] 09/08/18 8:31:57 EDT, Route to Pharmacy Electronically, [id number], [facility]/pharmacy#2339 Start Date: 09/08/18 Status: Ordered Medrol 4 [...]
--- OUTSIDE RECORDS SUMMARY | 2023-07-29 05:56 | XMS_ITS | Continuity of Care Document ---
Author Organization [facility] Address [address] [place] [address], [address] [place] [address]- Care Team Providers Care Medical Technologist Name Role Phone Miguel CORNELL, Rabia Haider Primary Care Physic sade Encounter [facility] Date(s): 07/16/22 - 08/15/22 [facility] [address] [place] [address] Drive, [address] [place] [address]- Attending Physician: Christie Rai Admitting Physician: AdmChristie monahan Referring Physician: AdmtrChristie Allergies, Adverse Reactions, Alerts No Known Allergies [...] 17:52:00 EST, Suspension, Route to Pharmacy Electronically, [id number], [facility]/pharmacy #[id number], J45. 0, 147, cm, 06/03/22 14:49:00 EST,... Start Date: 06/03/22 Stop Date: 11/30/22 Status: Ordered chlorthalidone 25 mg oral tablet 25 mg, 1, tablet, By Mouth, Daily, # 30 tablet, Refills 0, Maintenance, 11/16/21 15:28:00 EDT, Partial fill upon patient request if the prescription is for a schedule II opioid drug. Start Date: 11/16/21 Status: Ordered Misc Rx Refills 0, Maintenance, 06/19/22 10:38:00 EDT, [...] 06/19/22 16:30:00 EDT, Route to Pharmacy Electronically, [facility], Partial fill upon patient request [...] capsule, 0 Refills, Maintenance, 07/16/22 16:34:00 EDT, [facility]/pharmacy #[id number], Partial fill upon patient request if the prescription is for a schedule II opioid drug., 147.3, cm, 07/16/22 13:30:00 EDT, H... Start Date: 07/16/22 Stop Date: 08/15/22 Status: Ordered tiZANidine 4 mg oral tablet 4 mg, 1, tablet, By Mouth, 3 times a day, PRN, # 90 tablet, Refills 0, Tot. Refills 0, Maintenance,Spasm, 06/19/22 16:30:00 EDT, Route to Pharmacy Electronically, [facility], Partial fill upon patient [...] Personnel Name: Miguel CORNELL, Rabia Haider Position: [facility] Outreach Member Role: PCP Address: Address: [address] [place] [address], [place], [place] [address] Name: Amanda Thurman RN Position: [facility] RN Member Role: Primary Care Nurse Care Team Related Persons Name: FADI DYSON Address: home [address] [place] [address] Name: MARY DYSON Name: SHEA DYSON Address: home [address] [place] [address]
--- OUTSIDE RECORDS SUMMARY | 2023-07-29 05:56 | XMS_ITS | Continuity of Care Document ---
Author Organization [facility] ter Address [address] [place] [address]- Care Team Providers Care Discharge Specialist Name Role Phone Miguel CORNELL, Rabia Haider Primary Care Physic sade Encounter [facility] Date(s): 03/24/20 - 03/24/[address] [address]- Encounter Diagnosis Chest pain(Final) - 03/24/20 Discharge Disposition: A-D/C Home Attending Physician: Ke CORNELL, Becka Lennon Admitting Physician: Becka Dempsey MD Referring Physician: Not on Staff, Referring MD Allergies, Adverse Reactions, Alerts Substance Reaction [...] 09/08/18 8:31:57 EDT, Route to Pharmacy Electronically, [id number], [facility]/pharmacy#[id number] Start Date: 09/08/18 Status: Ordered Medrol [...] of hypercholesterolemia(Confirmed) Active Intervertebral disc disorder(Confirmed) Active Results Radiology Reports * Exam Date Time Procedure Performing Provider Status 03/24/20 2:20 PM Chest Portable Ebony Reyes; Judi ( Verified) Notes: (Chest Portable) Reason For Exam: Chest Pain;Other: RESULT: Chest Portable Chest Portable Hx of Present Illness: Patient reports 2 days of substernal chest pressure, intermittent, radiatingto back, a w shortness of breath, periods of palpitations w HR 130s-140s. Intermitting lightheadedness dizziness.; COMPARISON: 06/05/2018 FINDINGS: LINES AND TUBES: None. LUNGS AND PLEURA: Clear lungs. Normal pulmonary vascularity. Redemonstrated superimposed bone island from anterior rib projecting over the right lower lung zone. No pleural effusion. No pneumothorax. HEART, MEDIASTINUM AND LALY: Heart is normal in size. Normal upper mediastinal and hilar contour. BONES AND SOFT TISSUES: No acute abnormality. Chronic scoliosis. IMPRESSION: No acute abnormality. WSN: [id number] Ordering Physician: Jas Lorenzo Dictated By: John Light MD Dictated Date/Time: 03/24/20 2:47 pm Reviewed By: John Light MD Signed By: John Light MD Signed Date/Time: 03/24/20 2:47 pm Transcribed By: VAMSI Transcribed Date/Time: 03/24/20 2:44 pm Vital Signs Most recent to oldest [Reference Range]: 1 2 3 Oxygen Saturation [94-100 %] 97 % (03/24/20 7:01 PM) 98 % (03/24/20 5:54 PM) 97 % (03/24/20 3:18 PM) Pulse Rate [55-90 bpm] 76 bpm (03/24/20 7:01 PM) 74 bpm (03/24/20 5:54 PM) 70 bpm (03/24/20 3:18 PM) Blood Pressure [90-138/55-84 mm Hg] 111/59mm Hg (03/24/20 7:01 PM) 91/72mm Hg (03/24/20 5:54 PM) 106/77mm Hg (03/24/20 3:18 PM) Respiratory Rate [16-30 br/min] 20 br/min (03/24/20 7:01 PM) 16 br/min (03/24/20 5:54 PM) 18 br/min (03/24/20 3:18 PM) Temperature [96.8-100.4 DegF] 98.3 DegF (03/24/20 7:01 PM) 98.4 DegF (03/24/20 5:54 PM) 97.9 DegF (03/24/20 1:23 PM) Mode of Delivery (Oxygen) Room air (03/24/20 7:01 PM) Room air (03/24/20 5:54 PM) Room air (03/24/20 3:18 PM) Blood pressure sites Arm, right (03/24/20 7:01 PM) Arm, left (03/24/20 5:54 PM) Arm, left (03/24/20 3:18 PM) Temperature Route Oral (03/24/20 7:01 PM) Oral (03/24/20 5:54 PM) Oral (03/24/20 1:23 PM) Social History Social History Type Response Smoking Status Former smoker; Tobac co user in household: No; Other: pt states she quit smoking 30 years ago; entered on: 08/28/15 Sex
--- OUTSIDE RECORDS SUMMARY | 2023-07-29 05:56 | XMS_ITS | Continuity of Care Document ---
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 Name Role Phone Miguel CORNELL, Rabia Haider Primary Care Physic sade [facility] [id number] Date(s): 04/04/22 - 05/04/22 [facility] [address] [place] [address] Drive, [address] [place], [place] [address] Allergies, Adverse Reactions, Alerts No Known [...] Soft Stop, 11/06/21 12:03:00 EDT, Tablet, [id number], Partial fill upon patient request if the [...] Maintenance, 12/11/21 9:32:00 EDT, [facility]), 90, USE 1 INHALATION BY [...] 6 Refills, Maintenance, 11/16/21 15:33:00 EDT, Aerosol, [facility]/pharmacy #[id number], Partial fill upon patient request [...] 15:31:00 EDT, Aerosol, Route to Pharmacy Electronically, [id number], [facility]/pharmacy #[id number], 147, cm, 11/16/21 15:21:00 EDT, Height,... Start Date: 11/16/21 Stop Date: 06/14/22 Status: Ordered Trelegy Ellipta 200 mcg-62.5 mcg-25 mcg/inh inhalation powder 1 puffs, Inhalation, Daily, at the same time every day, # 1 each, 6 Refills, Maintenance, 11/06/21 12:01:00 EDT, Powder, [facility]/pharmacy #[id number], Partial fill upon patient request [...] Team Personnel Name: Rabia Rivera MD Position: S Outreach Member Role: PCP Address: Address: [address] [place] [address], [place] [address]- Name: Olman HARPER, Amanda Position: S RN Member Role: Primary Care Nurse Care Team Related Persons Name: FADI DYSON Address: home [address] [place] [address] Name: MARY DYSON Name: SHEA DYSON Address: [address] [place] [address]
--- OUTSIDE RECORDS SUMMARY | 2023-07-29 05:56 | XMS_ITS | Continuity of Care Document ---
Author Organization [facility] ter Address [address] [place] [address]- Care Team Providers Care Lab Head Name Role Phone Miguel CORNELL, Rabia Haider Primary Care Physic sade Encounter [facility] Date(s): 02/03/21 - 02/05/[address] [address]- Discharge Disposition: A-D/C Home Attending Physician: Greg Lang MD Admitting Physician: Lise Mendez DO Referring Physician: Not on Staff, Referring MD Allergies, Adverse Reactions, Alerts Substance Reaction Severity Status NKA Active Medications acetaminophen 325 mg oral tablet 975 mg, By Mouth, Every 8 hours, Refills 0, Maintenance, 02/05/21 9:31:00 EDT, Partial fill upon patient request if the prescription is for a schedule II opioid drug. Start Date: 02/05/21 Status: Ordered Acetaminophen Tablet 975 mg, Tablet, By Mouth, 02/05/21 10:00:00 EDT Start Date: 02/05/21 Stop Date: 02/05/21 Status: Completed aspirin 81 mg oral delayed release tablet 81 mg, 1, tablet, By Mouth, Daily, Refills 0, Maintenance, 03/23/19 13:51:44 EST Start Date: 03/23/19 Status: Ordered atorvastatin 10 mg oral tablet 1 tablet = 10 mg, By Mouth, Daily, 0 Refills, Maintenance, 04/28/20 15:58:00 EST, Partial fill uponpatient request if the prescription is for a schedule II opioid drug. Start Date: 04/28/20 Status: Ordered Bactrim DS 800 mg-160 mg oral tablet 1 tablet, By Mouth, 2 times a day, for 3 days, # 6 tablet, 0 Refills, Acute 02/08/21 9:31:00 EDT, 02/05/21 9:31:00 EDT, Tablet, [facility]/pharmacy #[id number], Partial fill upon patient request if the prescription is for a schedule II opioid drug., 1 tablet By Mo... Start Date: 02/05/21 Stop Date: 02/08/21 Status: Ordered Biotin By Mouth, Daily, pt states she is taking 5000 units, 0 Refills, Maintenance, 04/10/10 15:54:14 EST Start Date: 04/10/10 Status: Ordered Breo Ellipta 200 mcg-25 mcg/inh inhalation powder 1 puffs, Inhalation, Daily, j44.9, # 1 each, 6 Refills, Maintenance, 01/04/21 14:45:00 EDT, Powder,[facility]/pharmacy #[id number], 1 puffs Inhalation Daily,Instr:j44.9, 145.5, cm, 04/28/20 15:56:00 EST, Height,63.59, kg, 04/26/20 8:42:00 EST, Dry Weight Start Date: 01/04/21 Status: Ordered calcium carbonate 500 mg (200 mg elemental calcium) oral tablet, chewable 500 mg, 1, tablet, Daily, Refills 0, Maintenance, 03/23/19 13:51:28 EST Start Date: 03/23/19 Status: Ordered Motrin Tablet 800 mg, Tablet, By Mouth, 3 times a day, PRN for Pain , Moderate, Routine, 02/04/21 15:11:00 EDT Start Date: 02/04/21 Stop Date: 02/18/21 Status: Ordered MSM 1000mg MSM 1000mg, Refills [...] Exam Date Time Procedure Performing Provider Status 02/03/21 2:06 PM Finger 4th Right Hand Myesha Coombs na; Auth (Verified) Notes: (Finger 4th Right Hand) Reason For Exam: infection;Other: RESULT: Finger 4th Right Hand Right fourth finger 3 views dated February 03, 2021. No prior studies are available. HISTORY: Pain. Redness and swelling. FINDINGS: This examination shows soft tissue swelling. In addition, there is a nondisplaced intra-articular fracture of the ulnar aspect of the distal portion of the fourth middle phalanx. As visualized, the remaining bones show no evidence of fracture or dislocation. There is loss of joint space in the interphalangeal joints. IMPRESSION: Nondisplaced fracture of the distal aspect of the fourth middle phalanx medially. Examination 949[address]. Thank you for allowing me to participate in the care of this patient. WSN: [id number] Ordering Physician: Yonatan Maxwell MD Dictated By: Brian Madrid MD Dictated Date/Time: 02/03/21 2:14 pm Reviewed By: Brian Madrid MD Signed By: Brian Madrid MD Signed Date/Time: 02/03/21 2:14 pm Transcribed By: VAMSI Transcribed Date/Time: 02/03/21 2:13 pm Vital Signs Most recent to oldest [Reference Range]: 1 2 3 Height 147 cm (02/05/21 6:53 AM) 147 cm (02/04/21 8:01 PM) 147 cm (02/04/21 3:06 PM) Weight 63 kg (02/03/21 6:59 PM) 63 kg (02/03/21 6:45 PM) Oxygen Saturation [94-100 %] 100 % (02/05/21 6:53 AM) 99 % (02/04/21 8:01 PM) 96 % (02/04/21 3:06 PM) Pulse Rate [55-90 bpm] 72 bpm (02/05/21 6:53 AM) 66 bpm (02/04/21 8:01 PM) 77 bpm (02/04/21 3:06 PM) Body Mass Index [18.5-24.99] 29.15 *H* (02/03/21 6:59 PM) 29.15 *H* (02/03/21 6:45 PM) Blood Pressure [90-138/55-84 mm Hg] 125/66mm Hg (02/05/21 6:53 AM) 124/66mm Hg (02/04/21 8:01 PM) 140/77mm Hg *H* (02/04/21 3:06 PM) Respiratory Rate [16-30 br/min] 18 br/min (02/05/21 5:09 PM) 18 br/min (02/05/21 11:57 AM) 18 br/min (02/05/21 8:05 AM) Temperature [96.8-100.4 DegF] 97.2 DegF (02/05/21 6:53 AM) 98.2 DegF (02/04/21 8:01 PM) 98.9 DegF (02/04/21 3:06 PM) Mode of Delivery (Oxygen) Room air (02/05/21 6:53 AM) Room air (02/04/21 8:01 PM) Room air (02/04/21 3:06 PM) Blood pressure sites Arm, right (02/05/21 6:53 AM) Arm, right (02/04/21 8:01 PM) Arm, left (02/04/21 3:06 PM) Temperature Route Oral (02/05/21 6:53 AM) Oral (02/04/21 8:01 PM) Oral (02/04/21 3:06 PM) Dry Weight 63 kg (02/03/21 6:59 PM) 63 kg (02/03/21 6:45 PM) Weight Obtained Via Standing scale (02/03/21 6:45 PM) Dry Weight Obtained Via Standing scale (02/03/21 6:45 PM) Social History Social History Type Response Smoking Status Former smoker; Tobac co user in household: No; Other: pt states she quit smoking 30 years ago; entered on: 08/28/15 Sex
--- OUTSIDE RECORDS SUMMARY | 2023-07-29 05:56 | XMS_ITS | Continuity of Care Document ---
Author Organization [facility] Address [address] [place] [address]- Care Team Providers Care Supervisor Green End Department Name Role Phone Miguel CORNELL, Rabia Haider Primary Care Physic sade Encounter [facility] Date(s): 06/05/22 - 07/05/22 [facility] [address] [place], [place] [address] Attending Physician: Christie Rai Admitting Physician: AdmChristie [...] 5 Refills, Maintenance, 06/03/22 17:52:00 EST, Solution, [facility]/pharmacy #[id number], J45. 0, 147, cm, 06/03/22 14:49:00 EST, Height, 62.2, kg, 11/13/21 15:28:00 EDT, Dry Weight Start Date: 06/03/22 Status: Ordered budesonide 0.5 mg/2 mL inhalation suspension 0.5 mg, 2, mL, Neb, 2 times a day, # 120 mL, Refills 5, Tot. Refills 5, Maintenance, 06/03/22 17:52:00 EST, Suspension, Route to Pharmacy Electronically, [id number], [facility]/pharmacy #[id number], J45. 0, 147, cm, 06/03/22 [...] 06/19/22 16:30:00 EDT, Route to Pharmacy Electronically, [facility], Partial fill upon patient request [...] 06/19/22 16:30:00 EDT, Route to Pharmacy Electronically, [facility], Partial fill upon patient [...] Team Personnel Name: Rabia Rivera MD Position: [facility] Outreach Member Role: PCP Address: Address: [address] [place] [address], [place], [place] [address] Name: Amanda Thurman RN Position: [facility] RN Member Role: Primary Care Nurse Care Team Related Persons Name: FADI DYSON Address: home [address] [place] [address] Name: MARY DYSON Name: SHEA DYSON Address: home [address] [place] [address]
--- OUTSIDE RECORDS SUMMARY | 2023-07-29 05:56 | XMS_ITS | Continuity of Care Document ---
Author Organization [facility] ter Address [address] [place] [address]- Care Team Providers Care Quality Control Microbiologist Name Role Phone Miguel CORNELL, Rabia Haider Primary Care Physic sade Encounter [facility] Date(s): 06/19/22 - 06/19/[address] [address]- Discharge Disposition: A-D/C Home Attending Physician: Kendall Garrett MD Admitting Physician: Kendall Garrett MD Referring Physician: Kendall Garrett MD Allergies, Adverse Reactions, Alerts No Known [...] Refills, Maintenance, 06/03/22 17:52:00 EST, Solution, [facility]/pharmacy #[id number], J45. 0, 147, cm, 06/03/22 14:49:00 EST, Height, 62.2, kg, 11/13/21 15:28:00 EDT, Dry Weight Start Date: 06/03/22 Status: Ordered budesonide 0.5 mg/2 mL inhalation suspension 0.5 mg, 2, mL, Neb, 2 times a day, # 120 mL, Refills 5, Tot. Refills 5, Maintenance, 06/03/22 17:52:00 EST, Suspension, Route to Pharmacy Electronically, [id number], [facility]/pharmacy #[id number], J45. 0, 147, cm, 06/03/22 [...] 06/19/22 16:30:00 EDT, Route to Pharmacy Electronically, [facility], Partial fill upon patient request [...] 06/19/22 16:30:00 EDT, Route to Pharmacy Electronically, [facility], Partial fill upon patient request if [...] Confirmed Active Intervertebral disc disorder Confirmed Active Results Radiology Reports * Exam Date Time Procedure Performing Provider Status 06/19/22 1:07 PM C-Arm < 1 Hour Jazz Tovar; Auth ( Verified) Notes: (C-Arm < 1 Hour) Reason For Exam: ACDF C7-T1 for radiculopathy; tt 25min ft 6sec 2 images saved and dose summary RESULT: C-Arm < 1 Hour Spine Single View, C-Arm < 1 Hour INDICATION: Reason: ACDF C7-T1 for radiculopathy; tt 25min 6sec 2 images saved and dose summary; Special Instructions: tt 25min ft 6sec 2 images saved and dose summary COMPARISONS: None TECHNIQUE: Fluoroscopy support was provided. There was no radiologist in attendance. FLUOROSCOPY TIME: 6 seconds EXPOSURE: 2.33 mGy (reference air kerma) TECHNOLOGIST TIME: 25 minutes FINDINGS: 2 images were submitted. Please refer to operative note for full details. IMPRESSION: See above. WSN: [id number] Ordering Physician: Kendall Garrett Dictated By: Steven Villalta MD Dictated Date/Time: 06/19/22 1:50 pm Reviewed By: Steven Villalta MD Signed By: Steven Villalta MD Signed Date/Time: 06/19/22 1:50 pm Transcribed By: VAMSI Transcribed Date/Time: 06/19/22 1:50 pm * Exam Date Time Procedure Performing Provider Status 06/19/22 1:07 PM Spine Single View Jazz Tovar; Aut h (Verified) Notes: (Spine Single View) Reason For Exam: ACDF C7-T1 for radiculopathy; tt 25min 6sec 2 images saved anddose summary RESULT: Spine Single View Spine Single View, C-Arm < 1 Hour INDICATION: Reason: ACDF C7-T1 for radiculopathy; tt 25min 6sec 2 images saved and dose summary; Special Instructions: tt 25min ft 6sec 2 images saved and dose summary COMPARISONS: None TECHNIQUE: Fluoroscopy support was provided. There was no radiologist in attendance. FLUOROSCOPY TIME: 6 seconds EXPOSURE: 2.33 mGy (reference air kerma) TECHNOLOGIST TIME: 25 minutes FINDINGS: 2 images were submitted. Please refer to operative note for full details. IMPRESSION: See above. WSN: [id number] Ordering Physician: Kendall Garrett Dictated By: Steven Villalta MD Dictated Date/Time: 06/19/22 1:50 pm Reviewed By: Steven Villalta MD Signed By: Steven Villalta MD Signed Date/Time: 06/19/22 1:50 pm Transcribed By: VAMSI Transcribed Date/Time: 06/19/22 1:50 pm Vital Signs Most recent to oldest [Reference Range]: 1 2 3 Height 147.3 cm (06/19/22 10:41 AM) 147.3 cm (06/17/22 3:15 PM) Weight 64.1 kg (06/19/22 10:41 AM) 63.1 kg (06/17/22 3:15 PM) Oxygen Saturation [94-100 %] 96 % (06/19/22 2:45 PM) 100 % (06/19/22 2:30 PM) 99 % (06/19/22 2:00 PM) Pulse Rate [55-90 bpm] 62 bpm (06/19/22 2:45 PM) 71 bpm (06/19/22 10:41 AM) Body Mass Index [18.5-24.99 kg/m2] 29.54 kg/m2 *H* (06/19/22 10:41 AM) 29.08 kg/m2 *H* (06/17/22 3:15 PM) Blood Pressure [90-138/55-84 mm Hg] 108/58mm Hg (06/19/22 2:45 PM) 104/55mm Hg (06/19/22 2:00 PM) 108/52mm Hg (06/19/22 1:45 PM) Respiratory Rate [16-30 br/min] 16 br/min (06/19/22 2:45 PM) 16 br/min (06/19/22 2:00 PM) 16 br/min (06/19/22 1:45 PM) Temperature [96.8-100.4 DegF] 97.4 DegF (06/19/22 2:45 PM) 97.5 DegF (06/19/22 12:45 PM) 98.3 DegF (06/19/22 10:41 AM) Liters per Minute 5 L/min (06/19/22 12:45 PM) Mode of Delivery (Oxygen) Room air (06/19/22 2:45 PM) Room air (06/19/22 2:00 PM) Room air (06/19/22 1:00 PM) Blood pressure sites Arm, right (06/19/22 2:45 PM) Arm, right (06/19/22 12:45 PM) Arm, right (06/19/22 10:41 AM) Temperature Route Temporal (06/19/22 2:45 PM) Temporal (06/19/22 12:45 PM) Temporal (06/19/22 10:41 AM) Dry Weight 64.1 kg (06/19/22 10:41 AM) 63.1 kg (06/17/22 3:15 PM) Weight Obtained Via Standing scale (06/19/22 10:41 AM) Patient/family stated (06/17/22 3:15 PM) Dry Weight Obtained Via Standing scale (06/19/22 10:41 AM) Patient/family stated (06/17/22 3:15 PM) Social History Social History Type Response Smoking Status Former smoker; Tobac co user in household: No; Other: pt states she quit smoking 30 years ago; entered on: 08/28/15 Sex Note * Odalys Manzano RN: PERFORM Event Display: Discharge/Transfer Note Hospital Authored Date: [id number] Nursing Discharge Note Entered On: 06/19/2022 17:51 EDT Performed On: 06/19/2022 17:50 EDT by Odalys Manzano RN Nursing Discharge Note 2 Discharge Time : 06/19/2022 17:49 EDT Discharge Level of Care at Discharge : Home/Chcf/Foster Care Patient Left Unit Via : Wheelchair Patient Accompanied Off Unit with : Significant other, Responsible adult DC Instructions Provided & Signed by Pt : Yes Patient Understands D/C Instructions : Yes Patient Instructions Discharge Signed : Yes Did Pt have Specialty Bed or Wound Vac : No Odalys Manzano RN - 06/19/2022 17:50 EDT * Lashae Heaton: MODIFY Radha Patricia: MODIFY, PERFORM Kylie DELGADO, Radha Peña: PERFORM, SIGN Kylie DELGADO, Radha Peña: SIGN, VERIFY Radha Patricia: VERIFY, MODIFY Kylie DELGADO, Radha Peña: MODIFY, SIGN Radha Patricia: SIGN Gerry CORNELL, Kendall Rainey: PAULA Event Display: Discharge/Transfer Note Hospital Authored Date: [id number] Patient: SANKET DYSON Age: 72 years Sex: Female : 1950 Associated Diagnoses: None Author: Radha Patricia Discharge Information DATE: 06/19/2022 PREOPERATIVE DIAGNOSIS: C7-T1 spondylolisthesis, foraminal stenosis with radiculopathy, right. POSTOPERATIVE DIAGNOSIS: Same. PROCEDURES PERFORMED: Anterior cervical discectomy C8-T1, interbody device, fusion, plate. SURGEON: Kendall Garrett M.D. Discharge condition: good Compared to admission: improved Functional Status: ambulatory Discharge Disposition Home: self care, family. Discharge Date 06/19/2022 Admission Date 06/19/2022 Hospital Course The patient presents with pain and neurologic symptoms in the right upper extremity that have been refractory to conservative management. The patient has decided to move forward with surgery. Benefits and risks have been discussed including infection, hemorrhage, voice loss, dysphagia, CSF leakage,neurologic deficit, vascular injury, failure of fusion or hardware failure. Written consent was obtained. Pt tolerated procedure well. She has been able to eat/drink, ambulate, void urine, and expresses a desire to go home today. She will be discharged home with postoperative and followup instructions, as well as pain medications and muscle relaxants. Surgical dressing with minimal staining present Discharge Plan Diet/Activity/Patient Education/Follow Up Follow Up with: Rabia Rivera MD; Kendall Garrett 07/16/2022 1:45 PM. Discharge Disposition Discharge: home. MEDICATION LIST (Selected) Prescriptions Prescribed Brovana 15 mcg/2 mL inhalation solution: 1 each, Neb, 2 times a day, # 60 each, 5 Refills, Maintenance, 06/03/22 17:52:00 EST, Solution, [facility]/pharmacy #[id number], J45. 0, 147, cm, 06/03/22 14:49:00 EST, Height, 62.2, kg, 11/13/21 15:28:00 EDT, Dry Weight Nebulizer/Compressor: See Instructions, # 1 each, Refills 11, Tot. Refills 11, Maintenance, E0570 Nebulizer A7003 Neb Disp set A7014 Neb Non-Disp Filter A7005 Neb non-Disp set A7015 Aerosol Mask A7013 NEb Disp Filter length of need lifetime 99 months Dx Asthma J45.909, ... budesonide 0.5 mg/2 mL inhalation suspension: 0.5 mg, 2, mL, Neb, 2 times a day, # 120 mL, Refills 5, Tot. Refills 5, Maintenance, 06/03/22 17:52:00 EST, Suspension, Route to Pharmacy Electronically, [id number], [facility]/pharmacy #[id number], J45. 0, 147, cm, 06/03/22 14:49:00 EST,... oxyCODONE 5 mg oral tablet: 5 mg, 1, tablet, By Mouth, Every 4 hours, PRN, # 42 tablet, Refills 0, Tot. Refills 0, Maintenance, as needed for pain, 06/19/22 16:30:00 EDT, Route to Pharmacy Electronically, [facility], Partial fill upon patient request if the prescri... tiZANidine 4 mg oral tablet: 4 mg, 1, tablet, By Mouth, 3 times a day, PRN, # 90 tablet, Refills 0,Tot. Refills 0, Maintenance, Spasm, 06/19/22 16:30:00 EDT, Route to Pharmacy Electronically, [facility], Partial fill upon patient request if the prescription is for... Documented Medications Documented Biotin: By Mouth, Daily, pt states she is taking 5000 units, 0 Refills, Maintenance, 04/10/10 15:54:14 EST Misc Rx: Refills 0, Maintenance, 06/19/22 10:38:00 EDT, Supply Multivitamin: By Mouth, Daily, 0 Refills, Maintenance Protonix 40 mg oral delayed release tablet: 1 tablet = 40 mg, By Mouth, Daily, # 30 tablet, 0 Refills, Maintenance, 06/03/22 14:51:00 EST, EC Tablet Sulindac: = 200 mg, By Mouth, Daily, 0 Refills, Maintenance, 06/17/22 15:05:00 EDT, Partial fill upon patient request if the prescription is for a schedule II opioid drug. atorvastatin 10 mg oral tablet: 1 tablet = 10 mg, By Mouth, Daily, 0 Refills, Maintenance, 04/28/2114:58:00 EST, Partial fill upon patient request if the prescription is for a schedule II opioid drug. chlorthalidone 25 mg oral tablet: 25 mg, 1, tablet, By Mouth, Daily, # 30 tablet, Refills 0, Maintenance, 11/16/21 15:28:00 EDT, Partial fill upon patient request if the prescription is for a schedule II opioid drug. vidiscal: vidiscal, Refills 0, Maintenance, for hair growth, 10/28/18 9:24:51 EDT, Compound * Odalys Manzano RN: PERFORM Event Display: Patient Education/Instruction Authored Date: [id number] Inpatient Adult Discharge Instructions [address] [address] Name: SANKET DYSON : 1950 Visit: 06/19/2022 09:32:00 Current Date: 06/19/2022 16:39 Account: [id number] Inpatient Adult Discharge Instructions We would like to thank you for allowing us to assist you with your healthcare needs. The following includes patient education materials and information regarding your injury/illness. Our entire staffstrives to provide an excellent experience for our patients and their families. PLEASE ENSURE YOU FOLLOW-UP PER THE INSTRUCTIONS BELOW! ?? YOUR OPINION IS IMPORTANT TO US! Please complete the survey you may receive by mail or email. Your feedback will be used to make improvements to the healthcare experiences of our patients and their families. Surveys are administered by [employer] ?? If further treatment with your primary care physician or another doctor is recommended, it is important for you to keep the appointment. Call your primary care physician or return to the Emergency Department immediately if your condition worsens, fails to improve, or new symptoms develop. If you need to find a doctor, you can call [facility] for a referral at [phone] or toll free at [phone] ([phone]) or log in to [email or web address].. ?? You can view and manage your care through the patient portal or by using a health care los of your choosing. [facility] is a website that allows you to securely view your medical information including your hospital discharge summary, office visit summaries, medications and follow-up visits. You can also request appointments, renew medications, and request access to your medical information using a health care los of your choosing, or just ask a question. You can enroll at [email or web address] or register during your next office visit. You have been discharged from [facility], Patient Care Unit: [facility]. If you have any questions regarding these instructions after you leave, please call us and we will be happy to assist you. [facility] Your Care Team Attending Physician Kendall Garrett MD Reason for Admission RADICULOPATHY DISCECTOMYFUS ANT CER 2LEV DST [place] Tests Performed Below is a partial list of the tests performed during your hospitalization. You may have had other tests and procedures not included in this list. Please discuss all test results with your provider. XR C-Arm < 1 Hour XR Spine Single View Primary Care Provider Miguel CORNELL, Rabia Haider Advance Directive Health Care Proxy on File Yes - Health Care Proxy Discharge Vitals Temperature: 97.4 DegF Height: 147.3 cm Pulse Rate: 62 bpm Weight: 64.1 kg Respiratory Rate: 16 br/min Body Mass Index:??29.54 kg/m2??High Systolic Blood Pressure: 108 mm Hg Body surface area: 1.62 Diastolic Blood Pressure: 58 mm Hg ?? Oxygen Saturation: 96 % ?? Studies Pending All tests and labs ordered during this hospital stay have been completed unless listed below. Please discuss all pending results with your provider listed above in these instructions. ?? No incomplete studies found What to do next Instructions From Your Doctor Discharge Orders Scheduled Follow-Up Appointments Friday 1:45 PM EDT ?? With: Gerry CORNELL, Kendall Rainey Where: [address] [place] [address]- You Need to Schedule the Following Appointments Follow Up with??Kendall Garrett When??07/16/2022 01:45 PM EDT Where: [address] [place] [address], [address] [place] [address]- Business (1) Follow Up with??Rabia Rivera MD When??In 0 days Where: [address] [facility] [address] [place] [address]- Business (1) Discharge Medications SANKET DYSON :1950 Visit Date:06/19/2022 Medications: Please continue your medications until treatment is completed or stopped by your provider. Medications not listed below should be discontinued. Discuss any questions related to medications with your provider. What How Much When Instructions Next Dose New Oxycodone (oxyCODONE 5 mg oral tablet) 1 tab(s) Oral Every 4 hours as needed for as needed for pain Pickup at [facility] 3 as needed New Tizanidine (tiZANidine 4 mg oral tablet) 1 tab(s) Oral 3 times a day as needed for Spasm Pickup at [facility] 3 Next dose at 9 pm Unchanged arformoterol (Brovana 15 mcg/ 2 mL inhalation solution) 1 Each Nebulized inhalation Twice a day as scheduled Unchanged Atorvastatin (atorvastatin 10 mg oral tablet) 1 tab(s) Oral Daily as scheduled Unchanged Biotin Oral Daily pt states she is taking 5000 units ?? as scheduled Unchanged Budesonide (budesonide 0.5 mg/ 2 mL inhalation suspension) 2 Milliliter Nebulized inhalation Twice a day Duration: 30 Days as scheduled Unchanged Chlorthalidone (chlorthalidone 25 mg oral tablet) 1 tab(s) Oral Daily as scheduled Unchanged Durable Medical Equipment (Nebulizer/ Compressor) See instructions E0570 Nebulizer A7003 Neb Disp set A7014 Neb Non-Disp Filter A7005 Neb non-Disp set A7015 Aerosol Mask A7013 NEb Disp Filter length of need lifetime 99 months Dx Asthma J45.909 ?? see instructions Unchanged Methocarbamol (methocarbamol 750 mg oral tablet) 1 tab(s) Oral 3 times a day as needed for Pain , Moderate DISCONTINUE UNTIL DONE WITH tIZANIDINE. Unchanged Miscellaneous Rx (Misc Rx) Unchanged Miscellaneous Rx (vidiscal) for hair growth ?? Unchanged Multivitamin Oral Daily Unchanged Pantoprazole (Protonix 40 mg oral delayed release tablet) 1 tab(s) Oral Daily as scheduled Unchanged Sulindac 200 Milligram Oral Daily as scheduled Pharmacy Information [facility]: [address] [place], [place] [id number] [phone] Test Results Below is a partial list of the most recent Laboratory test results done prior to this discharge. You may have had other tests and procedures not included in this list. Please discuss all test resultswith your provider. Allergies (NKA means No Known Allergies) NKA Problems Active Problems??(8) Chronic obstructive pulmonary disease (COPD)?? Cyst?? Female stress incontinence?? gerd?? Hx of abnormal cervical Pap smear?? Hx of hypercholesterolemia?? Intervertebral disc disorder?? palpitations?? Education Materials Below is the list of Educational Leaflet Providered with your Discharge Instructions. Neurosurgery-Cervical Fusion Post-Op?? Valuables and Belongings I fully understand and agree that [facility] accepts no responsibility for all my personal property including clothing, toilet articles, radios, jewelry, dentures, hearing aids, rings, money, or any other property that is in my possession or is brought to me after admission. I understand certain valuables may be placed in a hospital safe for a short period of time. I understand that the hospital is not liable for loss or damage due to accident, fire, or other natural occurrence while said property is in the safe. I accept full responsibility for any personal property that I keep with me, and will not hold the hospital responsible in case of loss or disappearance. I acknowledge that i have been encouraged to send valuables and belongings home. ?? Review of Valuable and Belonging List: With patient Possessions released to: to pacu Date for Pt to Sign Valuables/Belongings: 06/19/22 10:41:00 ?? Valuables & Belongings ?? Clothes Electronic devices Jewelry Monetary Items Personal devices Miscellaneous Medications (Valuables) Valuables at Bedside Jacket, Pants, Shirt, Shoes, Undergarments Cell phone ? Glasses ? Valuables Sent Home ? Valuables Sent to Security ? Other Discharge Information ? Pulmonary Rehab Status?? Pulmonary Rehab Discharge Status?? Respiratory Rate: 16 br/min ? Common Emergency Awareness Tips IS IT A STROKE? Act FAST and Check for these signs: FACE Does the face look uneven? ARM Does one arm drift down? SPEECH Does their speech sound strange? TIME Call at any sign of stroke ?? Heart Attack Signs Chest discomfort: Most heart attacks involve discomfort in the center of the chest and lasts more than a few minutes, or goes away and comes back. It can feel like uncomfortable pressure, squeezing, fullness or pain. Discomfort in upper body: Symptoms can include pain or discomfort in one or both arms, back, neck, jaw or stomach. Shortness of breath: With or without discomfort. Other signs: Breaking out in a cold sweat, nausea, or lightheaded. Remember, MINUTES DO MATTER. If you experience any of these heart attack warning signs, call to get immediate medical attention! ?? Smoking can increase your chances of developing chronic health problems and can cause harmful effects to other family members in your house. If you smoke, you are strongly encouraged to quit. Please call [employer] [facility] at [phone] or [phone] ([phone]) or log in to [email or web address] for referrals to smoking cessation programs. ?? The National Suicide Prevention Hotline is available 28/10 if you or someone you know needs to find a reason to keep living. By calling 3-381-040-Attunity (1570) you'll be connected to a skilled, trained counselor at a crisis center in your area. INPATIENT DISCHARGE INSTRUCTIONS SIGNATURE PAGE SANKET DYSON Location:[facility] Registration Date and Time:06/19/2022 09:32 EDT Primary Care Physician: Rabia Rivera MD, I SANKET DYSON, have received the above patient education materials/instructions and have verbalized understanding. If ambulance or transport services are being used I further acknowledge being given a choice of service. ?? If you need to contact me, please call me at this number: . Patient/Surveillance Analyst Name: Patient/Surveillance Analyst Signature: Relationship to Patient: Witness Name/Signature: Date: * Steff Squires: PERFORM, SIGN, VERIFY Event Display: Patient Education Handout Authored Date: [id number] * Odalys Manzano RN: PERFORM Event Display: Patient Education Leaflets Authored Date: [id number] Surgery Medical Daystay Surgical Overnight Discharge Instructions ?? 295 Medical Daystay/Surgical Overnight Discharge Instructions ? Since your coordination and judgment may be altered by medication and/or anesthesia, a responsible adult must drive you home from the hospital. ? If you have received medication for pain or sedation while under our care, you should not drive, operate machinery, drink alcohol, or sign any legal documents for 24 hours.?? You should have someone with you at home tonight. ? Remain at home the day of discharge.?? You may be up and about unless otherwise instructed by your physician. ? You may resume your daily prescription medication schedule.?? Any depressant medication should be avoided for 24 hours unless otherwise instructed by your surgeon or anesthesiologist. ? Call your physician for a follow-up appointment.? If you experience unusual or severe pain not relied by your pain medication, excessive bleedingor drainage, persistent nausea and vomiting, excessive swelling or redness, foul odor from incisionsite or fever over 100.6F, you need to call your physician. ? A follow-up phone call by a nurse will be made the day after your procedure.?? If you have stayed with us over night, you will not be receiving a follow-up phone call. ? Nausea and vomiting are a common side effect of prescription pain medication.?? We recommend that pills are not taken on an empty stomach.?? While taking any prescription pain medication you should not drive or drink alcohol. ? * Sarah DELGADO, Steff Mckeon: PERFORM Event Display: Patient Education Leaflets Authored Date: [id number] Neurosurgery-Cervical Fusion Post-Op ?? 201 Cervical Fusion What can I expect post operatively? Please remember that it takes time for your muscles and nerves to heal. You may have complete relief of your pain immediately after your surgery, but that is not normal.?? Neck pain is common post operatively and may persist for several weeks. Narcotics and muscle relaxers help to control this painbut it is not always possible to achieve 0/10 pain in postoperative period. ?? Not all cervical surgeries require bracing post operatively.?? If you do not have a collar when youwake from surgery you do not need a collar when you go home. ?? Other type???s cervical fusions require a hard cervical collar to be placed for a period of time after surgery.?? If you have been given collar you will be given separate sheet of instructions on howto maintain the collar.? With a cervical fusion, it is common to have sore shoulders.?? You may also feel a lump in your throat. These will all subside in the coming weeks.? You may prefer to eat softer foods for a few days after surgery. ?? Bruising after surgery below or around the surgical site is expected.? Localized swelling or ???bumps?? are common at the surgical site and will subside over time.?? Call the office if they are getting worse.? It is common to experience temporary relapse or flare of preoperative symptoms.?? If it does not subside or if it worsens you should call the office.? Physical therapy may be suggested at your follow up appointment. ?? Constipation is common while taking narcotics; you may want to start on a bowel regimen to prevent this.?? You can use over the counter medications.? Which Activities should I avoid? Do not bend or twist your back repeatedly. Do not lift more than 5-10 pounds (about the weight of a gallon of milk). If you go to pick something up and it causes strain to the muscles, do not lift it. Remember to keep things close to your body if you do lift or carry anything, and use your knees if you bend instead of your back. Do not drive if you are taking prescription pain medications or a muscle relaxer . These medications can cause you to be drowsy. Once you are able to drive, make sure that you can safely look over your shoulders without causing any pain. You are able to sit in a car.?? If for prolonged periods of time, take frequent breaks to stretch and walk.?? Do not do any running/jogging, vacuuming, weight lifting, sweeping/mopping, laundry, shoveling/raking, riding a metal mover or anything that might irritate your back until you have completely healed from your surgery. You may have sexual activity when you are comfortable with it. ?? Follow these activity limitations until your follow up appointment in 4 weeks. ? Medications?? You will get prescription pain medications when discharged from the hospital.?? Narcotic medications are tightly controlled, any new scripts you need to picking table worker in person. If you live far away this may be able to arrange through your primary care provider.? You will get muscle relaxers to take in addition to pain medications.?? This helps prevent muscles from getting tight and sore, which will make mobility difficult.? Do not take ibuprofen for 3 months after a fusion surgery. ?? Percocet and Hydrocodone have Tylenol, while taking the maximum amount of narcotic allowed you cannot add additional Tylenol, as you do not want to exceed the allotted recommendation per day.?? Once you start to taper the narcotic medications Tylenol can be used, again do not exceed the recommendedamount per day.? You may restart any antiplatelet or anticoagulation medications 1 week post- operative, please consult with your prescribing physician on these medications.? How can I take care of myself at home? Please remember that it takes time for your muscles and nerves to heal. You may have complete relief of your pain immediately after your surgery, but that is not normal. Back or neck pain is common post operatively and may persist for several weeks. ?? It is common to experience temporary relapse or flare of preoperative symptoms.?? If it does not subside you can call the office.? Walk around your house at least every 1 ??-2 hours while you are awake, to stay as active as possible, keep the back muscles strong, and to help prevent blood clots in your legs. You may do stairs as tolerated.?? Once you are comfortable with walking, you can gradually increase the amount or length of time thatyou do walk. ?? Do not push yourself to do too much too soon. Increasing your pain may actually delay your recovery. Change your positions often. Avoid lying down, standing or sitting for long periods during the day. ?? If you do any activity that increases your pain, you should stop it immediately. ?? You may sleep how you are most comfortable, with the exception of stomach sleeping. ?? Ice: You may ice the area to help with pain. Place a towel over the surgical site to protect your skin, and then use an ice pack for 30 minutes,usually about 4 times per day. Do not leave the pack on longer than 30 minutes since it may actually increase your pain. ?? Washing/wound care: Your surgical dressing will remain in place for 3 days postoperatively; you may remove it on day 3 after surgery and shower normally. ?? It is important that you wash your surgical wounds at least once per day with soap and water, and pat it dry afterwards. ?? Do not be afraid of hurting the wound because of the soap and water. You should take showers, but not baths to do this. Do not submerge incision (i.e. bath, pool, Jacuzzi, ocean) for at least four weeks after surgery. If reyna have been used, you will need to be seen within 10-14 days from surgery at the office tohave the reyna removed. Steri strips are commonly placed over the incision.?? These will fall off on their own. ?? When should I call my doctor? Contact our office at the appropriate number listed below if you have any of the following signs and symptoms: ?? New numbness or tingling or weakness in your feet or legs Increasing redness or swelling around your incision with or without any soreness The edges of your incision start coming apart. ??Incision is draining, especially if yellow/green and/or bad smelling. Fever over 101 F. ??Pain that is increasing and you cannot control.?? If you are having difficulties with breathing go to the emergency department ?? * Dominickscribe RODRIGUE S: TRANSCRISteven Hathaway MD: VERIFY Event Display: Result: Authored Date: Spine Single View, C-Arm < 1 Hour INDICATION: Reason: ACDF C7-T1 for radiculopathy; tt 25min 6sec 2 images saved and dose summary; Special Instructions: tt 25min ft 6sec 2 images saved and dose summary COMPARISONS: None TECHNIQUE: Fluoroscopy support was provided. There was no radiologist in attendance. FLUOROSCOPY TIME: 6 seconds EXPOSURE: 2.33 mGy (reference air kerma) TECHNOLOGIST TIME: 25 minutes FINDINGS: 2 images were submitted. Please refer to operative note for full details. IMPRESSION: See above. WSN: [id number] Ordering Physician: Kendall Garrett Dictated By: Steven Villalta MD Dictated Date/Time: 06/19/22 1:50 pm Reviewed By: Steven Villalta MD Signed By: Steven Villalta MD Signed Date/Time: 06/19/22 1:50 pm Transcribed By: VAMSI Transcribed Date/Time: 06/19/22 1:50 pm XR Spine Single view * RODRIGUE Monsalve S: TRANSCRISteven Hathaway MD: VERIFY Event Display: Result: Authored Date: [id number] Spine Single View, C-Arm < 1 Hour INDICATION: Reason: ACDF C7-T1 for radiculopathy; tt 25min 6sec 2 images saved and dose summary; Special Instructions: tt 25min ft 6sec 2 images saved and dose summary COMPARISONS: None TECHNIQUE: Fluoroscopy support was provided. There was no radiologist in attendance. FLUOROSCOPY TIME: 6 seconds EXPOSURE: 2.33 mGy (reference air kerma) TECHNOLOGIST TIME: 25 minutes FINDINGS: 2 images were submitted. Please refer to operative note for full details. IMPRESSION: See above. WSN: [id number] Ordering Physician: Kendall Garrett Dictated By: Steven Villalta MD Dictated Date/Time: 06/19/22 1:50 pm Reviewed By: Steven Villalta MD Signed By: Steven Villalta MD Signed Date/Time: 06/19/22 1:50 pm Transcribed By: VAMSI Transcribed Date/Time: 06/19/22 1:50 pm Patient Care team information Care Team Personnel Name: Miguel CORNELL, Rabia Haider Position: [facility] Outreach Member Role: PCP Address: Address: [address] [place] [address], [place], [place] [address] Name: Olman HARPER, Amanda Position: [facility] RN Member Role: Primary Care Nurse Care Team Related Persons Name: FADI DYSON Address: home [address] [place] [address] Name: MARY DYSON Name: SHEA DYSON Address: home [address] [place] [address]
--- OUTSIDE RECORDS SUMMARY | 2023-07-29 05:57 | XMS_ITS | Continuity of Care Document ---
Author Organization [facility] Address [address] [place], [place] [address]c[address]ie hurt, [address] [place] [address]- Care Team Providers Care Car Sweeper Name Role Phone Miguel CORNELL, Rabia Haider Primary Care Physic sade [id number] Date(s): 04/04/22 - 05/04/22 [facility] Neurosurgery [address] [place] [address] Drive, [address] [place], [place] [address] Allergies, Adverse Reactions, Alerts No Known Allergies [...] Soft Stop, 11/06/21 12:03:00 EDT, Tablet, [id number], Partial fill upon patient request if the [...] Maintenance, 12/11/21 9:32:00 EDT, [facility]), 90, USE 1 INHALATION BY [...] 6 Refills, Maintenance, 11/16/21 15:33:00 EDT, Aerosol, [facility]/pharmacy #[id number], Partial fill upon patient request [...] 15:31:00 EDT, Aerosol, Route to Pharmacy Electronically, [id number], [facility]/pharmacy #[id number], 147, cm, 11/16/21 15:21:00 EDT, Height,... Start Date: 11/16/21 Stop Date: 06/14/22 Status: Ordered Trelegy Ellipta 200 mcg-62.5 mcg-25 mcg/inh inhalation powder 1 puffs, Inhalation, Daily, at the same time every day, # 1 each, 6 Refills, Maintenance, 11/06/21 12:01:00 EDT, Powder, [facility]/pharmacy #[id number], Partial fill upon patient request [...] S Outreach Member Role: PCP Address: Address: [address] [place] [address], [place] [address]- Name: Olman HARPER, Amanda Position: S RN Member Role: Primary Care Nurse Care Team Related Persons Name: FADI DYSON Address: home [address] [place] [address] Name: MARY DYSON Name: SHEA DYSON Address: home [address] [place] [address]
--- OUTSIDE RECORDS SUMMARY | 2023-07-29 05:57 | XMS_ITS | Continuity of Care Document ---
Author Organization [facility] Neurosurger [facility] Address [address] [place] [address] [address], [address] [place] [address]- Care Team Providers Care School Cleaner Name Role Phone Miguel CORNELL, Rabia Haider Primary Care Physic sade Encounter [facility] Date(s): 04/26/22 - 05/26/[address], [address] [place], [place] [address] Allergies, Adverse Reactions, Alerts [...] Refills, Soft Stop, 11/06/21 12:03:00 EDT, Tablet, [facility]/pharmacy #[id number], Partial fill upon patient request if the [...] Maintenance, 12/11/21 9:32:00 EDT, [facility] ([facility]), 90, USE 1 INHALATION BY [...] 6 Refills, Maintenance, 11/16/21 15:33:00 EDT, Aerosol, [facility]/pharmacy #[id number], Partial fill upon patient request [...] 15:31:00 EDT, Aerosol, Route to Pharmacy Electronically, [id number], [facility]/pharmacy #[id number], 147, cm, 11/16/21 15:21:00 EDT, Height,... Start Date: 11/16/21 Stop Date: 06/14/22 Status: Ordered Trelegy Ellipta 200 mcg-62.5 mcg-25 mcg/inh inhalation powder 1 puffs, Inhalation, Daily, at the same time every day, # 1 each, 6 Refills, Maintenance, 11/06/21 12:01:00 EDT, Powder, [facility]/pharmacy #[id number], Partial fill upon patient request [...] Team Personnel Name: Rabia Rivera MD Position: [facility] Outreach Member Role: PCP Address: Address: [address] [place], [place] [address] [address]- Name: Olman HARPER, Amanda Position: S RN Member Role: Primary Care Nurse Care Team Related Persons Name: FADI DYSON Address: home [address] [place] [address] Name: MARY DYSON Name: SHEA DYSON Address: home [address] [place] [address]
--- OUTSIDE RECORDS SUMMARY | 2023-07-29 05:57 | XMS_ITS | Continuity of Care Document ---
Author Organization [facility] Address [address] [place] [address]- Care Team Providers Care Tractor Mechanic Helper Name Role Phone Rabia Rivera MD Primary Care Physic [facility] emergency department Encounter [facility] Date(s): 06/02/19 - 09/30/19 [facility] Cardiology [address] [place] [address]- [facility] Attending Physician: Lonnie Carrillo MD Admitting Physician: Lonine Carrillo MD Referring Physician: Rabia Rivera MD Allergies, [...] 09/08/18 8:31:57 EDT, Route to Pharmacy Electronically, [id number], [facility]/pharmacy#[id number] Start Date: 09/08/18 Status: Ordered Medrol [...]
--- OUTSIDE RECORDS SUMMARY | 2023-07-29 05:57 | XMS_ITS | Continuity of Care Document ---
Author Organization [facility] M edicine Address [address] [place] [address]- Care Team Providers Care Balance Wheel Arm Burnisher Name Role Phone Miguel CORNELL, Rabia Haider Primary Care Physic sade Encounter [place] Date(s): 04/28/20 - 05/28/20 [facility] Pulmonary Medicine [address] [place] [address]- Attending Physician: Christie Rai Admitting Physician: Christie Rai Referring Physician: Christie Rai Allergies, Adverse Reactions, [...] opioid drug. Start Date: 04/28/20 Status: Ordered atorvastatin 20 mg oral tablet [...] puffs, Inhalation, Daily, j44.9, # 3 each, 1 Refills, Maintenance, 05/09/20 14:03:00 EST, Powder,[facility], 1 puffs Inhalation Daily,Instr:j44.9, 145.5, cm, 04/28/20 15:56:00 EST, Height, 63.59, kg, 04/26/20 8:42:00 EST, Dry Weight Start Date: 05/09/20 Status: Ordered calcium carbonate 500 mg (200 mg elemental calcium) oral tablet, chewable 500 mg, 1, tablet, Daily, Refills 0, Maintenance, 03/23/19 13:51:28 EST Start Date: 03/23/19 Status: Ordered diltiazem 120 mg/24 hours oral capsule, extended release 120 mg, 1, capsule, By Mouth, Daily, # 30 capsule, Refills 11, Tot. Refills 11, Maintenance, 09/08/18 8:31:57 EDT, Route to Pharmacy Electronically, [id number], [facility]/pharmacy#[id number] Start Date: 09/08/18 Status: Ordered Medrol [...]
--- OUTSIDE RECORDS SUMMARY | 2023-07-29 05:57 | XMS_ITS | Continuity of Care Document ---
Author Organization [facility] Oncolog y Address [address] [place] [address]- Care Team Providers Care Oil Recovery Unit Operator Name Role Phone Miguel CORNELL, Rabia Haider Primary Care Physic sade Encounter [facility] Date(s): 04/26/20 - 05/26/20 [facility] Oncology [address] [place] [address]- Attending Physician: Christie Rai Admitting Physician: Christie Rai Referring Physician: AdmtrChristie Allergies, Adverse Reactions, Alerts Substance Reaction Severity [...] 09/08/18 8:31:57 EDT, Route to Pharmacy Electronically, [id number], [facility]/pharmacy#2339 Start Date: 09/08/18 Status: Ordered Medrol 4 [...]
--- OUTSIDE RECORDS SUMMARY | 2023-07-29 05:57 | XMS_ITS | Continuity of Care Document ---
Author Organization [facility] Card[facility] Address [address] [place] [address]- Care Team Providers Care Circulation Clerk Name Role Phone Miguel CORNELL, Rabia Haider Primary Care Physic sade Encounter [facility] Date(s): 08/31/19 - 09/30/19 [facility] Cardiology [address] [place] [address]- [facility] Attending Physician: Admtaniya, Christie Admitting Physician: AdmChristie monahan Referring Physician: Admtr, Christie Allergies, Adverse Reactions, Alerts [...] 09/08/18 8:31:57 EDT, Route to Pharmacy Electronically, [id number], [facility]/pharmacy#[id number] Start Date: 09/08/18 Status: Ordered [...]
--- OUTSIDE RECORDS SUMMARY | 2023-07-29 05:57 | XMS_ITS | Continuity of Care Document ---
Author Organization [facility] Address [address] [place] [address] [address] [place] [address]- Care Team Providers Care Ad Writer Name Role Phone Miguel CORNELL, Rabia Haider Primary Care Physic sade En[facility] Date(s): 03/07/21 - 03/14/21 [facility] [address] [place] [address]- Attending Physician: Elías Knowles MD Referring Physician: [...] oldest [Reference Range]: 1 Height 147 cm (03/07/21 1:00 PM) Weight 63 kg (03/07/21 1:00 PM) Body Mass Index [18.5-24.99] 29.15 *H* (03/07/21 1:00 PM) Temperature [96.8-100.4 DegF] 98.4 DegF (03/07/21 1:00 PM) Social History Social History Type Response Smoking Status Former smoker; Tobac co user in household: No; Other: pt states she quit smoking 30 years ago; entered on: 08/28/15 Sex
--- OUTSIDE RECORDS SUMMARY | 2023-07-29 05:57 | XMS_ITS | Continuity of Care Document ---
Author Organization [facility] Neuro[facility] Address [address] [place] [address] [address], [address] [place] [address]- Care Team Providers Care Waste Cotton Cleaner Name Role Phone Miguel CORNELL, Rabia Haider Primary Care Physic sade [place] [facility] [place]s): 04/26/22 - 07/25/22 [facility] Neurosurgery [address] [place] [address] Drive, [address] [place], [place] [address] Attending Physician: Kendall Garrett MD Referring Physician: Arnulfo Al MD Allergies, Adverse Reactions, Alerts No Known [...] 5 Refills, Maintenance, 06/03/22 17:52:00 EST, Solution, [facility]/pharmacy #[id number], J45. 0, 147, cm, 06/03/22 14:49:00 EST, Height, 62.2, kg, 11/13/21 15:28:00 EDT, Dry Weight Start Date: 06/03/22 Status: Ordered budesonide 0.5 mg/2 mL inhalation suspension 0.5 mg, 2, mL, Neb, 2 times a day, # 120 mL, Refills 5, Tot. Refills 5, Maintenance, 06/03/22 17:52:00 EST, Suspension, Route to Pharmacy Electronically, [id number], [facility]/pharmacy #[id number], J45. 0, 147, cm, 06/03/22 14:49:00 EST,... Start Date: 06/03/22 Stop Date: 11/30/22 Status: Ordered chlorthalidone 25 mg oral tablet 25 mg, 1, tablet, By Mouth, Daily, # 30 tablet, Refills 0, Maintenance, 11/16/21 15:28:00 EDT, Partial fill upon patient request if the prescription is for a schedule II opioid drug. Start Date: 11/16/21 Status: Ordered [facility] Refills 0, Maintenance, 06/19/22 10:38:00 EDT, [...] 06/19/22 16:30:00 EDT, Route to Pharmacy Electronically, [facility], Partial fill upon patient request [...] capsule, 0 Refills, Maintenance, 07/16/22 16:34:00 EDT, [facility]/pharmacy #[id number], Partial fill upon patient request if the prescription is for a schedule II opioid drug., 147.3, cm, 07/16/22 13:30:00 EDT, H... Start Date: 07/16/22 Stop Date: 08/15/22 Status: Ordered tiZANidine 4 mg oral tablet 4 mg, 1, tablet, By Mouth, 3 times a day, PRN, # 90 tablet, Refills 0, Tot. Refills 0, Maintenance,Spasm, 06/19/22 16:30:00 EDT, Route to Pharmacy Electronically, [facility], Partial fill upon [...] Personnel Name: Miguel CORNELL, Rabia Haider Position: [facility] Outreach Member Role: PCP Address: Address: [address] [place] [address] Name: Amanda Thurman RN Position: [facility] RN Member Role: Primary Care Nurse Care Team Related Persons Name: FADI DYSON Address: [address] [place] [address] Name: MARY DYSON Name: SHEA DYSON Address: home [address] [place] [address]
--- OUTSIDE RECORDS SUMMARY | 2023-07-29 05:57 | XMS_ITS | Continuity of Care Document ---
Author Organization [facility] Address [address] [place] [address]- Care Team Providers Care Satellite Communications Operator Name Role Phone Miguel CORNELL, Rabia Haider Primary Care Physic sade Encounter [facility] Date(s): 11/06/21 - 03/06/22 [facility] [address] [place] [address]- Attending Physician: Franko CORNELL, Andreina Godinez Referring Physician: Rabia Rivera MD Allergies, Adverse [...] Refills, Soft Stop, 11/06/21 12:03:00 EDT, Tablet, [facility]/pharmacy #2335, Partial fill upon patient request if the [...] Maintenance, 12/11/21 9:32:00 EDT, [facility] ([facility]), 90, USE 1 INHALATION BY [...] 6 Refills, Maintenance, 11/16/21 15:33:00 EDT, Aerosol, [facility], Partial fill upon patient request [...] 15:31:00 EDT, Aerosol, Route to Pharmacy Electronically, [id number], [facility]/pharmacy #[id number], 147, cm, 11/16/21 15:21:00 EDT, Height,... Start Date: 11/16/21 Stop Date: 06/14/22 Status: Ordered Trelegy Ellipta 200 mcg-62.5 mcg-25 mcg/inh inhalation powder 1 puffs, Inhalation, Daily, at the same time every day, # 1 each, 6 Refills, Maintenance, 11/06/21 12:01:00 EDT, Powder, [facility]/pharmacy #[id number], Partial fill upon [...] Team Personnel Name: Rabia Rivera MD Position: [facility] Outreach Member Role: PCP Address: Address: [address] [place] [address], [place] [address]- Name: Olman HARPER, Amanda Position: [facility] RN Member Role: Primary Care Nurse Care Team Related Persons Name: FADI DYSON Address: home [address] [place] [address] Name: MARY DYSON Name: SHEA DYSON Address: home [address] [place] [address]
--- OUTSIDE RECORDS SUMMARY | 2023-07-29 05:57 | XMS_ITS | Continuity of Care Document ---
Author Organization [facility] M ed[facility] Address [address] [place] [address]- Care Team Providers Care Systems Qa Analyst Name Role Phone Miguel CORNELL, Rabia Haider Primary Care Physic sade Encounter [facility] Date(s): 01/04/21 - 02/03/21 [facility] Medicine [address] [place] [address]- Allergies, Adverse Reactions, Alerts Substance Reaction Severity [...] each, 6 Refills, Maintenance, 01/04/21 14:45:00 EDT, Powder,[facility]/pharmacy #[id number], 1 puffs Inhalation Daily,Instr:j44.9, 145.5, cm, [...] 09/08/18 8:31:57 EDT, Route to Pharmacy Electronically, [id number], [facility]/pharmacy#[id number] Start Date: 09/08/18 Status: Ordered [...]
--- OUTSIDE RECORDS SUMMARY | 2023-07-29 05:57 | XMS_ITS | Continuity of Care Document ---
Author Organization [facility] Address [address] [place] [address]- Care Team Providers Care Medical Delivery Driver Name Role Phone Miguel CORNELL, Rabia Haider Primary Care Physic sade [place] [facility] Date(s): 04/26/20 - 05/26/20 [facility] On[facility] [address] [place] [address]- Attending Physician: Christie Rai Admitting Physician: Christie [...] 09/08/18 8:31:57 EDT, Route to Pharmacy Electronically, [id number], [facility]/pharmacy#2339 Start Date: 09/08/18 Status: Ordered Medrol [...]
--- OUTSIDE RECORDS SUMMARY | 2023-07-29 05:57 | XMS_ITS | Continuity of Care Document ---
Author Organization [facility] y Address [address] [place], [place] [address]caitie hurt, [address] [place] [address]- Care Team Providers Care Donor Services Team Leader Name Role Phone Miguel CORNELL, Rabia Haider Primary Care Physic sade Encounter [facility] Date(s): 08/09/22 - 09/08/22 [facility] [address] [place] [address] Drive, [address] [place], [place] [address] Allergies, Adverse Reactions, Alerts No [...] 5 Refills, Maintenance, 06/03/22 17:52:00 EST, Solution, [facility]/pharmacy #[id number], J45. 0, 147, cm, 06/03/22 14:49:00 EST, Height, 62.2, kg, 11/13/21 15:28:00 EDT, Dry Weight Start Date: 06/03/22 Status: Ordered budesonide 0.5 mg/2 mL inhalation suspension 0.5 mg, 2, mL, Neb, 2 times a day, # 120 mL, Refills 5, Tot. Refills 5, Maintenance, 06/03/22 17:52:00 EST, Suspension, Route to Pharmacy Electronically, [id number], [facility]/pharmacy #[id number], J45. 0, 147, cm, [...] 06/19/22 16:30:00 EDT, Route to Pharmacy Electronically, [facility], Partial fill upon patient request if the [...] capsule, 0 Refills, Maintenance, 07/16/22 16:34:00 EDT, [facility]/pharmacy #[id number], Partial fill upon patient request if the prescription is for a schedule II opioid drug., 147.3, cm, 07/16/22 13:30:00 EDT, H... Start Date: 07/16/22 Stop Date: 08/15/22 Status: Ordered tiZANidine 4 mg oral tablet 4 mg, 1, tablet, By Mouth, 3 times a day, PRN, # 90 tablet, Refills 0, Tot. Refills 0, Maintenance,Spasm, 06/19/22 16:30:00 EDT, Route to Pharmacy Electronically, [facility], Partial fill upon patient request [...] Team Personnel Name: Rabia Rivera MD Position: [facility] Outreach Member Role: PCP Address: Address: [address] [place] [address] Name: Olman HARPER, Amanda Position: S RN Member Role: Primary Care Nurse Care Team Related Persons Name: FADI DYSON Address: home [address] [place] [address] Name: MARY DYSON Name: SHEA DYSON Address: home [address] [place] [address]
--- OUTSIDE RECORDS SUMMARY | 2023-07-29 05:57 | XMS_ITS | Continuity of Care Document ---
Author Organization [facility] ter Address [address] [place] [address]- Care Team Providers Care Churn Drill Operator Name Role Phone Miguel CORNELL, Rabia Haider Primary Care Physic sade Encounter [facility] Date(s): 09/19/20 - 09/20/[address] [address]- Discharge Disposition: A-D/C Walkout Attending Physician: Not on Staff, Attending MD Admitting Physician: Not on Staff, Admitting MD Referring Physician: Not on Staff, Referring [...] 09/08/18 8:31:57 EDT, Route to Pharmacy Electronically, [id number], [facility]/pharmacy#[id number] Start Date: 09/08/18 Status: Ordered Medrol 4 [...] Exam Date Time Procedure Performing Provider Status 09/19/20 12:53 PM Chest 2 Views Frontal and Lat Shirley Lassiter; Judi (Verified) Notes: (Chest 2 Views Frontal and Lat) Reason For Exam: Chest Pain;Other: RESULT: Chest 2 Views Frontal and Lat Examination: Chest performed on 09/19/2020. History: Sudden onset chest heaviness with radiation to the right jaw. Findings: Frontal and lateral views of the chest are compared to a prior study dated 03/24/[address] dated 06/12/2018. The cardiac and mediastinal silhouettes are within normal limits. The lungs are clear. A bone island over the right eighth posterior rib is unchanged. Impression: There is no acute cardiopulmonary disease. WSN: [id number] Ordering Physician: Jesús Galindo Dictated By: Shannan Sheriff MD Dictated Date/Time: 09/19/20 12:57 p Reviewed By: Shannan Sheriff MD Signed By: Shannan Sheriff MD Signed Date/Time: 09/19/20 12:57 pm Transcribed By: VAMSI Transcribed Date/Time: 09/19/20 12:56 pm Vital Signs Most recent to oldest [Reference Range]: 1 2 3 Oxygen Saturation [94-100 %] 100 % (09/20/20 3:20 AM) 98 % (09/20/20 12:10 AM) 98 % (09/19/20 9:07 PM) Pulse Rate [55-90 bpm] 86 bpm (09/20/20 3:20 AM) 74 bpm (09/20/20 12:10 AM) 78 bpm (09/19/20 9:07 PM) Blood Pressure [90-138/55-84 mm Hg] 120/90mm Hg (09/20/20 3:20 AM) 129/74mm Hg (09/20/20 12:10 AM) 139/89mm Hg *H* (09/19/20 9:07 PM) Respiratory Rate [16-30 br/min] 16 br/min (09/20/20 3:20 AM) 16 br/min (09/20/20 12:10 AM) 16 br/min (09/19/20 9:07 PM) Temperature [96.8-100.4 DegF] 98.3 DegF (09/20/20 3:20 AM) 97 DegF (09/20/20 12:10 AM) 98.2 DegF (09/19/20 9:07 PM) Mode of Delivery (Oxygen) Room air (09/20/20 3:20 AM) Room air (09/20/20 12:10 AM) Room air (09/19/20 9:07 PM) Blood pressure sites Arm, left (09/20/20 3:20 AM) Arm, right (09/19/20 9:07 PM) Arm, right (09/19/20 4:18 PM) Temperature Route Oral (09/20/20 3:20 AM) Oral (09/20/20 12:10 AM) Oral (09/19/20 9:07 PM) Social History Social History Type Response Smoking Status Former smoker; Tobac co user in household: No; Other: pt states she quit smoking 30 years ago; entered on: 08/28/15 Sex
--- OUTSIDE RECORDS SUMMARY | 2023-07-29 05:57 | XMS_ITS | Continuity of Care Document ---
Author Organization [facility] Address [address] [place] [address]- Care Team Providers Care Datastage Developer Name Role Phone Reece Villeda Primary Care Physician Encounter [facility] Date(s): 01/17/23 - 05/17/23 [facility] [address] [place] [address]- Attending Physician: Jordan Samaniego MD Admitting Physician: Jordan Samaniego MD Referring Physician: Reece Villeda Allergies, Adverse Reactions, Alerts No Known Allergies Medications Albuterol (Eqv-Ventolin HFA) 90 mcg/inh inhalation aerosol 2 puffs, Inhalation, Every 6 hours, PRN Wheezing/Shortness of Breath, # 18 Gm, 6 Refills, Maintenance, 04/17/23 10:07:00 EST, [facility]/pharmacy #[id number], Partial fill upon patient request if the prescriptionis for a schedule II opioid drug., 2 puffs Inhalati... Start Date: 04/17/23 Stop Date: 11/13/23 Status: Ordered atorvastatin 10 mg oral tablet [...] 5 Refills, Maintenance, 06/03/22 17:52:00 EST, Solution, [facility]/pharmacy #[id number], J45. 0, 147, cm, 06/03/22 14:49:00 EST, Height, 62.2, kg, 11/13/21 15:28:00 EDT, Dry Weight Start Date: 06/03/22 Status: Ordered budesonide 0.5 mg/2 mL inhalation suspension 0.5 mg, 2, mL, Neb, 2 times a day, # 120 mL, Refills 5, Tot. Refills 5, Maintenance, 06/03/22 17:52:00 EST, Suspension, Route to Pharmacy Electronically, [id number], [facility]/pharmacy #[id number], J45. 0, 147, cm, 06/03/22 14:49:00 EST,... Start Date: 06/03/22 Stop Date: 11/30/22 Status: Ordered chlorthalidone 25 mg oral tablet 25 mg, 1, tablet, By Mouth, Daily, # 30 tablet, Refills 0, Maintenance, 11/16/21 15:28:00 EDT, Partial fill upon patient request if the prescription is for a schedule II opioid drug. Start Date: 11/16/21 Status: Ordered [facility] Rx Refills 0, Maintenance, 06/19/22 10:38:00 EDT, [...] Refills, Maintenance, 10/14/22 15:45:00 EDT, EC Capsule, [facility]/pharmacy #[id number], Partial fill upon george... Start Date: 10/14/22 Stop Date: 11/13/22 Status: Ordered oxyCODONE 5 mg oral tablet 5 mg, 1, tablet, By Mouth, Every 4 hours, PRN, # 42 tablet, Refills 0, Tot. Refills 0, Maintenance,as needed for pain, 06/19/22 16:30:00 EDT, Route to Pharmacy Electronically, [facility], Partial fill upon patient request [...] capsule, 0 Refills, Maintenance, 07/16/22 16:34:00 EDT, [facility]/pharmacy #[id number], Partial fill upon patient [...] 06/19/22 16:30:00 EDT, Route to Pharmacy Electronically, [facility], Partial fill upon patient [...] Reference Physician Member Role: PCP Address: Address: [address] [place] [address], [address] [place], [place] [address] Care Team Related Persons Name: FER PURVIS Address: [address] [address] Name: MARY DYSON Name: DALLAS DYSON Name: SHEA DYSON Address: home [address] [place] [address]
--- OUTSIDE RECORDS SUMMARY | 2023-07-29 05:57 | XMS_ITS | Continuity of Care Document ---
Author Organization [facility] ter Address [address] [place] [address]- Care Team Providers Care Director Of Operations Support Name Role Phone Miguel CORNELL, Rabia Haider Primary Care Physic sade Encounter [facility] Date(s): 10/24/21 - 01/03/[address] [address] Attending Physician: Leyla Paulson MD Admitting Physician: Leyla Paulson MD Referring Physician: Leyla Paulson MD Allergies, Adverse Reactions, Alerts No Known [...] Soft Stop, 11/06/21 12:03:00 EDT, Tablet, [id number], Partial fill upon patient request if the [...] Maintenance, 12/11/21 9:32:00 EDT, [facility]), 90, USE 1 INHALATION BY [...] 15:31:00 EDT, Aerosol, Route to Pharmacy Electronically, [id number], [facility]/pharmacy #2339, 147, cm, 11/16/21 15:21:00 EDT, Height,... Start Date: 11/16/21 Stop Date: 06/14/22 Status: Ordered Trelegy Ellipta 200 mcg-62.5 mcg-25 mcg/inh inhalation powder 1 puffs, Inhalation, Daily, at the same time every day, # 1 each, 6 Refills, Maintenance, 11/06/21 12:01:00 EDT, Powder, [facility]/pharmacy #[id number], Partial fill upon patient request if [...] on: 08/28/15 Sex Patient Care team information Personnel Name: Rabia Rivera MD Address: Address: [address] [place] [address], [place] [address]- [place]
--- OUTSIDE RECORDS SUMMARY | 2023-07-29 05:57 | XMS_ITS | Continuity of Care Document ---
Author Organization [facility] [address] [place] [address]- Care Team Providers Care Lead Furnace Operator Name Role Phone Miguel CORNELL, Rabia Haider Primary Care Physic [facility] Encounter [facility] Date(s): 06/10/19 - 08/15/[address] [facility] [address] [place] [address]- [facility] Attending Physician: Diana CORNELL, Juan Manuel Godinez Referring Physician: Rabia Rivera MD Allergies, [...] 09/08/18 8:31:57 EDT, Route to Pharmacy Electronically, [id number], [facility]/pharmacy#2339 Start Date: 09/08/18 Status: Ordered Medrol 4 [...]
--- OUTSIDE RECORDS SUMMARY | 2023-07-29 05:57 | XMS_ITS | Continuity of Care Document ---
Author Organization [facility] ter Address [address] [place] [address]- Care Team Providers Care Board Catcher Name Role Phone Miguel CORNELL, Rabia Haider Primary Care Physic sade [place] [facility] 12/31/[address] [address]- [facility] Encounter Diagnosis BPV (benign positional vertigo)(Final) - 12/31/19 Discharge Disposition: A-D/C Home Attending Physician: Rashaad Smith MD Admitting Physician: Rashaad Smith MD Referring Physician: Not on Staff, Referring [...] 09/08/18 8:31:57 EDT, Route to Pharmacy Electronically, [id number], [facility]/pharmacy#[id number] Start Date: 09/08/18 Status: Ordered meclizine 25 mg oral tablet 1 tablet = 25 mg, By Mouth, 3 times a day, PRN for dizziness, for 14 days, # 30 tablet, 0 Refills, Acute 01/14/20 22:23:00 EDT, 12/31/19 22:23:00 EDT, Tablet, [facility] #[id number], 147, cm, 12/31/19 17:04:00 EDT, Height, 64.7, kg, 05/05/19 14:3... Start Date: 12/31/19 Stop Date: 01/14/20 Status: Ordered Medrol 4 mg oral tablet [...] Range]: 1 2 3 Height 147 cm (12/31/19 5:04 PM) Weight 63 kg (12/31/19 5:04 PM) Oxygen Saturation [94-100 %] 98 % (12/31/19 11:00 PM) 99 % (12/31/19 5:20 PM) 96 % (12/31/19 5:00 PM) Pulse Rate [55-90 bpm] 88 bpm (12/31/19 11:00 PM) 98 bpm *H* (12/31/19 5:20 PM) Blood Pressure [90-138/55-84 mm Hg] 111/61mm Hg (12/31/19 11:00 PM) 112/55mm Hg (12/31/19 5:20 PM) 114/58mm Hg (12/31/19 5:00 PM) Respiratory Rate [16-30 br/min] 16 br/min (12/31/19 5:00 PM) Temperature [96.8-100.4 DegF] 98.0 DegF (12/31/19 5:00 PM) Mode of Delivery (Oxygen) Room air (12/31/19 11:00 PM) Room air (12/31/19 5:20 PM) Room air (12/31/19 5:00 PM) Temperature Route Oral (12/31/19 5:00 PM) Social History Social History Type Response Smoking Status Former smoker; Tobac co user in household: No; Other: pt states she quit smoking 30 years ago; entered on: 08/28/15 Sex
--- OUTSIDE RECORDS SUMMARY | 2023-07-29 05:57 | XMS_ITS | Continuity of Care Document ---
Author Organization [facility] Address [address] [place] [address]- Care Team Providers Care Box Blank Machine Operator Helper Name Role Phone Reece Villeda Primary Care Physician Encounter [facility] Date(s): 05/23/23 - 06/22/23 [facility] [address] [place] [address]- Allergies, Adverse Reactions, Alerts No Known Allergies Medications Albuterol (Eqv-Ventolin HFA) 90 mcg/inh inhalation aerosol 2 puffs, Inhalation, Every 6 hours, PRN Wheezing/Shortness of Breath, # 18 Gm, 6 Refills, Maintenance, 04/17/23 10:07:00 EST, [id number], Partial fill upon patient request if [...] 17:52:00 EST, Suspension, Route to Pharmacy Electronically, [id number], [facility]/pharmacy #2339, J45. 0, 147, cm, 06/03/22 14:49:00 EST,... Start Date: 06/03/22 Stop Date: 11/30/22 Status: Ordered chlorthalidone 25 mg oral tablet 25 mg, 1, tablet, By Mouth, Daily, # 30 tablet, Refills 0, Maintenance, 11/16/21 15:28:00 EDT, Partial fill upon patient request if the prescription is for a schedule II opioid drug. Start Date: 11/16/21 Status: Ordered [facility] Rx Refills 0, [...] Refills, Maintenance, 10/14/22 15:45:00 EDT, EC Capsule, [facility]/pharmacy #[id number], Partial fill upon george... Start Date: 10/14/22 Stop Date: 11/13/22 Status: Ordered oxyCODONE 5 mg oral tablet 5 mg, 1, tablet, By Mouth, Every 4 hours, PRN, # 42 tablet, Refills 0, Tot. Refills 0, Maintenance,as needed for pain, 06/19/22 16:30:00 EDT, Route to Pharmacy Electronically, [facility], Partial fill upon patient request if [...] capsule, 0 Refills, Maintenance, 07/16/22 16:34:00 EDT, [facility]/pharmacy #[id number], Partial fill upon patient request if the prescription is for a schedule II opioid drug., 147.3, cm, 07/16/22 13:30:00 EDT, H... Start Date: 07/16/22 Stop Date: 08/15/22 Status: Ordered tiZANidine 4 mg oral tablet 4 mg, 1, tablet, By Mouth, 3 times a day, PRN, # 90 tablet, Refills 0, Tot. Refills 0, Maintenance,Spasm, 06/19/22 16:30:00 EDT, Route to Pharmacy Electronically, [facility], Partial fill upon patient request [...] Care team information Care Team Personnel Name: Olman HARPER, Amanda Position: S RN Member Role: Primary Care Nurse Name: Reece Villeda Position: Reference Physician Member Role: PCP Address: Address: [address] [place] [address], [address] [place] [address]- Care Team Related Persons Name: FER PURVIS Address: home [address] [address] Name: MARY DYSON Name: DALLAS DYSON Name: SHEA DYSON Address: home [address] [place] [address]
--- OUTSIDE RECORDS SUMMARY | 2023-07-29 05:57 | XMS_ITS | Continuity of Care Document ---
Author Organization [facility] ter Address [address] [place] [address]- Care Team Providers Care Remnants Cutter Name Role Phone Reece Villeda Primary Care Physician [place] [facility] [place] - 10/14/[address] [address]- Discharge Disposition: A-D/C Home Attending Physician: Jordan Samaniego MD Admitting Physician: Jordan Samaniego MD Referring Physician: Jordan Samaniego MD Allergies, Adverse Reactions, Alerts No Known [...] 5 Refills, Maintenance, 06/03/22 17:52:00 EST, Solution, [facility]/pharmacy #[id number], J45. 0, 147, cm, 06/03/22 14:49:00 EST, Height, 62.2, kg, 11/13/21 15:28:00 EDT, Dry Weight Start Date: 06/03/22 Status: Ordered budesonide 0.5 mg/2 mL inhalation suspension 0.5 mg, 2, mL, Neb, 2 times a day, # 120 mL, Refills 5, Tot. Refills 5, Maintenance, 06/03/22 17:52:00 EST, Suspension, Route to Pharmacy Electronically, [id number], [facility]/pharmacy #[id number], J45. 0, 147, cm, 06/03/22 14:49:00 EST,... Start Date: 06/03/22 Stop Date: 11/30/22 Status: Ordered chlorthalidone 25 mg oral tablet 25 mg, 1, tablet, By Mouth, Daily, # 30 tablet, Refills 0, Maintenance, 11/16/21 15:28:00 EDT, Partial fill upon patient request if the prescription is for a schedule II opioid drug. Start Date: 11/16/21 Status: [place] [facility] [place] 0, Maintenance, 06/19/22 10:38:00 [...] Refills, Maintenance, 10/14/22 15:45:00 EDT, EC Capsule, [facility]/pharmacy #[id number], Partial fill upon george... Start Date: 10/14/22 Stop Date: 11/13/22 Status: Ordered oxyCODONE 5 mg oral tablet 5 mg, 1, tablet, By Mouth, Every 4 hours, PRN, # 42 tablet, Refills 0, Tot. Refills 0, Maintenance,as needed for pain, 06/19/22 16:30:00 EDT, Route to Pharmacy Electronically, [facility], Partial fill upon patient request [...] capsule, 0 Refills, Maintenance, 07/16/22 16:34:00 EDT, [facility]/pharmacy #[id number], Partial fill upon patient request if the prescription is for a schedule II opioid drug., 147.3, cm, 07/16/22 13:30:00 EDT, H... Start Date: 07/16/22 Stop Date: 08/15/22 Status: Ordered tiZANidine 4 mg oral tablet 4 mg, 1, tablet, By Mouth, 3 times a day, PRN, # 90 tablet, Refills 0, Tot. Refills 0, Maintenance,Spasm, 06/19/22 16:30:00 EDT, Route to Pharmacy Electronically, [facility], Partial fill upon patient [...] Confirmed Active Intervertebral disc disorder Confirmed Active Obese class I Confirmed Active Results Orders for Microbiology Reports Name Date Lower Resp Tract Culture w/ Gram Smear Microbiology Reports TEST:Lower Respiratory Tract Culture STATUS:Unauthenticated BODY SITE: SOURCE:BRONCH COLLECTED DATE/TIME:10/14/22 2:45 PM Lower Respiratory Tract Culture SPECIMEN DESCRIPTION : BRONCHIAL ALVEOLAR LAVAGE LUNG RT MID LOBE SPECIAL REQUESTS : NONE GRAM STAIN : NO CELLS OR ORGANISMS SEEN REPORT STATUS : PRELIMINARY REPORT Vital Signs Most recent to oldest [Reference Range]: 1 2 3 Height 149 cm (10/14/22 2:01 PM) Oxygen Saturation [94-100 %] 99 % (10/14/22 3:36 PM) 99 % (10/14/22 3:27 PM) 99 % (10/14/22 3:20 PM) Pulse Rate [55-90 bpm] 70 bpm (10/14/22 3:36 PM) 81 bpm (10/14/22 3:27 PM) 79 bpm (10/14/22 3:20 PM) Blood Pressure [90-138/55-84 mm Hg] 132/73mm Hg (10/14/22 3:36 PM) 122/68mm Hg (10/14/22 3:27 PM) 110/70mm Hg (10/14/22 3:20 PM) Respiratory Rate [16-30 br/min] 20 br/min (10/14/22 3:36 PM) 18 br/min (10/14/22 3:27 PM) 16 br/min (10/14/22 3:20 PM) Temperature [96.8-100.4 DegF] 96.7 DegF *L* (10/14/22 2:01 PM) Liters per Minute 6 L/min (10/14/22 3:20 PM) Mode of Delivery (Oxygen) Room air (10/14/22 3:36 PM) Room air (10/14/22 3:27 PM) Nasal cannula (10/14/22 3:20 PM) Blood pressure sites Arm, left (10/14/22 2:01 PM) Temperature Route Temporal (10/14/22 2:01 PM) Dry Weight 62 kg (10/14/22 2:01 PM) Social History Social History Type Response Smoking Status Former smoker; Tobac co user in household: No; Other: pt states she quit smoking 30 years ago; entered on: 08/28/15 Sex Note * Melodie Murphy RN: PERFORM Event Display: Discharge/Transfer Note Hospital Authored Date: [id number] Nursing Discharge Note Entered On: 10/14/2022 15:12 EDT Performed On: 10/14/2022 15:12 EDT by Melodie Murphy RN Nursing Discharge Note 2 Discharge Time : 10/14/2022 15:55 EDT Melodie Murphy RN - 10/14/2022 15:56 EDT Discharge Level of Care at Discharge : Home/Intermediate/Foster Care Patient Left Unit Via : Wheelchair Patient Accompanied Off Unit with : Responsible adult DC Instructions Provided & Signed by Pt : Yes Patient Understands D/C Instructions : Yes Patient Instructions Discharge Signed : Yes Did Pt have Specialty Bed or Wound Vac : No Melodie Murphy RN - 10/14/2022 15:12 EDT * Melodie Murphy RN: PERFORM Event Display: Patient Education/Instruction Authored Date: [id number] Inpatient Adult Discharge Instructions [address] [address] Name: SANKET DYSON : 1950 Visit: 10/14/2022 13:11:00 Current Date: 10/14/2022 15:13 Account: [id number] Inpatient Adult Discharge Instructions We would like [...] and their families. Surveys are administered by [employer] ?? If further treatment with your primary care physician or another doctor is recommended, it is important for you to keep the appointment. Call your primary care physician or return to the Emergency Department immediately if your condition worsens, fails to improve, or new symptoms develop. If you need to find a doctor, you can call [facility] for a referral at [phone] or toll free at [phone] ([phone]) or log in to [email or web address].. ?? You can view and manage your care through the patient portal or by using a health care los of your choosing. [employer] is a website that allows you to securely view your medical information including your hospital discharge summary, office visit summaries, medications and follow-up visits. You can also request appointments, renew medications, and request access to your medical information using a health care los of your choosing, or just ask a question. You can enroll at [email or web address] or register during your next office visit. You have been discharged from [facility], Patient Care Unit: ENDO. If you have any questions regarding these instructions after you leave, please call us and we will be happy to assist you. [facility] Your Care Team Attending Physician Jordan Samaniego MD Reason for Admission SHORTNESS OF BREATH Tests Performed Below is a partial list of the tests performed during your hospitalization. You may have had other tests and procedures not included in this list. Please discuss all test results with your provider. AFB Culture w/ AFB Smear, Respiratory?-- Results Pending -- Cell Count Fluid?-- Results Pending -- Fungal Culture, Respiratory?-- Results Pending -- Lower Resp Tract Culture w/ Gram Smear?-- Results Pending -- You will be contacted within 72 hours with your results. Primary Care Provider Reece Villeda Advance Directive Health Care Proxy on File Yes - Health Care Proxy Discharge Vitals Temperature:??96.7 DegF??Low Height: 149 cm Pulse Rate: 72 bpm ?? Respiratory Rate: 16 br/min ?? Systolic Blood Pressure:??144 mm Hg??High ?? Diastolic Blood Pressure: 71 mm Hg ?? Oxygen Saturation: 100 % ?? Studies Pending All tests and labs ordered during this hospital stay have been completed unless listed below. Please discuss all pending results with your provider listed above in these instructions. ?? AFB Culture w/ AFB Smear, Respiratory Cell Count Fluid Fungal Culture, Respiratory Lower Resp Tract Culture w/ Gram Smear What to do next Instructions From Your Doctor Discharge Orders You Need to Schedule the Following Appointments Follow Up with??Reece Villeda Where: [address] [facility], [address] [place] [address]- Discharge Medications SANKET DYSON :1950 Visit Date:10/14/2022 Medications: Please continue your medications until treatment is completed or stopped by your provider. Medications not listed below should be discontinued. Discuss any questions related to medications with your provider. What How Much When Instructions Next Dose Unchanged arformoterol (Brovana 15 mcg/ 2 mL inhalation solution) 1 Each Nebulized inhalation Twice a day Unchanged Atorvastatin (atorvastatin 10 mg oral tablet) 1 tab(s) Oral Daily Unchanged Biotin Oral Daily pt states she is taking 5000 units ?? Unchanged Budesonide (budesonide 0.5 mg/ 2 mL inhalation suspension) 2 Milliliter Nebulized inhalation Twice a day Duration: 30 Days Unchanged Chlorthalidone (chlorthalidone 25 mg oral tablet) 1 tab(s) Oral Daily Unchanged Durable Medical Equipment (Nebulizer/ Compressor) See instructions E0570 Nebulizer A7003 Neb Disp set A7014 Neb Non-Disp Filter A7005 Neb non-Disp set A7015 Aerosol Mask A7013 NEb Disp Filter length of need lifetime 99 months Dx Asthma J45.909 ?? Unchanged Miscellaneous Rx (Misc Rx) Unchanged Miscellaneous Rx (vidiscal) for hair growth ?? Unchanged Multivitamin Oral Daily Unchanged Oxycodone (oxyCODONE 5 mg oral tablet) 1 tab(s) Oral Every 4 hours as needed for as needed for pain Unchanged Pantoprazole (Protonix 40 mg oral delayed release tablet) 1 tab(s) Oral Daily Unchanged Sulindac 200 Milligram Oral Daily Unchanged Tizanidine (tiZANidine 4 mg oral capsule) 1 capsule Oral Daily at Bedtime Duration: 30 Days Unchanged Tizanidine (tiZANidine 4 mg oral tablet) 1 tab(s) Oral 3 times a day as needed for Spasm Test Results Below is a partial list of the most recent Laboratory test results done prior to this discharge. You may have had other tests and procedures not included in this list. Please discuss all test resultswith your provider. Allergies (NKA means No Known Allergies) NKA Problems Active Problems??(9) Chronic obstructive pulmonary disease (COPD)?? Cyst?? Female stress incontinence?? gerd?? Hx of abnormal cervical Pap smear?? Hx of hypercholesterolemia?? Intervertebral disc disorder?? Obese class I?? palpitations?? Education Materials Below is the list of Educational Leaflet Providered with your Discharge Instructions. Surgery Medical Daystay Surgical Overnight Discharge Instructions?? Valuables and Belongings I fully understand and agree that [facility] accepts no responsibility for all my [...] of Valuable and Belonging List: With patient Date for Pt to Sign Valuables/Belongings: 10/14/22 14:01:00 ?? Valuables & Belongings ?? Clothes Electronic devices Jewelry Monetary Items Personal devices Miscellaneous Medications (Valuables) Valuables at Bedside Jacket, Pants, Shirt, Shoes, Undergarments ? Valuables Sent Home ? Valuables Sent to Security ? Other Discharge Information ? Case Management Discharge Plan?? Discharge Plan?? Discharge Level of Care at Discharge: Home/Intermediate/Foster Care ?? Pulmonary Rehab Status?? Pulmonary Rehab Discharge Status?? [...] are strongly encouraged to quit. Please call [facility] at [phone] or [phone] [phone]) or log in to [email or web address] for referrals to smoking cessation programs. ?? 466 Suicide & Crisis Lifeline is available 28/10 if you or someone you know needs to find a reason to keep living. By calling 713 you'll be connected to a skilled, trained counselor at a crisis center in your area. INPATIENT DISCHARGE INSTRUCTIONS SIGNATURE PAGE LATOYASANKET CRANDALL Location:[facility] Registration Date and Time:10/14/2022 13:11 EDT Primary Care Physician: Reece Villeda, Attending Physician: Danette CORNELL, Jordan Johnson, I SANKET DSYON, have received the above patient education materials/instructions and have verbalized understanding. If ambulance or transport services are being used I further acknowledge being given a choice of service. ?? If you need to contact me, please call me at this number: . Patient/Energy Control Officer Name: Patient/Energy Control Officer Signature: Relationship to Patient: Witness Name/Signature: Date: * Melodie Murphy RN: PERFORM Event Display: Patient Education Leaflets Authored Date: [id number] Surgery Medical Daystay Surgical Overnight Discharge Instructions [...] should not drive or drink alcohol. ? Patient Care team information Care Team Personnel Name: Olman HARPER, mAanda Position: S RN Member Role: Primary Care Nurse Name: Reece Villeda Position: Reference Physician Member Role: PCP Address: Address: [address] [facility], [address] [place], [place] [address] Care Team Related Persons Name: MARY DYSON Name: DALLAS DYSON Name: SHEA DYSON Address: [address] [address]
--- OUTSIDE RECORDS SUMMARY | 2023-07-29 05:57 | XMS_ITS | Continuity of Care Document ---
Author Organization [facility] Address [address] [place] [address]- Care Team Providers Care Supervisor Photostat Name Role Phone Miguel CORNELL, Rabia Haider Primary Care Physic sade [place] [facility] [place] 03/23/19 - 04/02/19 [facility] [address] [place] [address]- [facility] Attending Physician: Christie Rai Admitting Physician: AdmChristie [...] Refills, Maintenance, Tablet, Route to Pharmacy Electronically, [id number], [facility]/pharmacy #[id number] Start Date: 03/02/18 Stop Date: 02/25/19 Status: Ordered Biotin By Mouth, Daily, pt states she is taking 5000 units, 0 Refills, Maintenance, 04/10/10 15:54:14 EST Start Date: 04/10/10 Status: Ordered Breo Ellipta 200 mcg-25 mcg/inh inhalation powder 1 puffs, Inhalation, Daily, # 1 each, 11 Refills, Maintenance, 02/09/19 17:01:31 EST, Powder, 1 puffs Inhalation Daily Start Date: 02/09/19 Status: Ordered calcium carbonate 500 mg (200 mg elemental calcium) oral tablet, chewable 500 mg, 1, tablet, Daily, Refills 0, Maintenance, 03/23/19 13:51:28 EST Start Date: 03/23/19 Status: Ordered diltiazem 120 mg/24 hours oral capsule, extended release 120 mg, 1, capsule, By Mouth, Daily, # 30 capsule, Refills 11, Tot. Refills 11, Maintenance, 09/08/18 8:31:57 EDT, Route to Pharmacy Electronically, [id number], [facility]/pharmacy#[id number] Start Date: 09/08/18 Status: Ordered [...]
--- OUTSIDE RECORDS SUMMARY | 2023-07-29 05:57 | XMS_ITS | Continuity of Care Document ---
Author Organization [facility] Address [address] [place] [address]- Care Team Providers Care Lead Manufacturing Engineering Tech Name Role Phone Miguel CORNELL, Rabia Haider Primary Care Physic sade [place] [facility] [place]21 [facility] [address] [place] [address]- Allergies, Adverse Reactions, Alerts Substance Reaction Severity [...]
--- OUTSIDE RECORDS SUMMARY | 2023-07-29 05:57 | XMS_ITS | Continuity of Care Document ---
Author Organization [facility] Address [address] [place] [address] [address], [address] [place] [address]- Care Team Providers Care Stock And Station Agent Name Role Phone Miguel CORNELL, Rabia Haider Primary Care Physic sade Encounter [facility] [place] Date(s): 05/02/22 - 05/09/22 [facility] [address] [place] [address] Drive, [address] [place], [place] [address] Attending Physician: Kendall Garrett MD Referring Physician: [...] Soft Stop, 11/06/21 12:03:00 EDT, Tablet, [id number], Partial fill upon patient request if the [...] Maintenance, 12/11/21 9:32:00 EDT, [facility]), 90, USE 1 INHALATION BY [...] 15:31:00 EDT, Aerosol, Route to Pharmacy Electronically, [id number], [facility]/pharmacy #[id number], 147, cm, 11/16/21 15:21:00 EDT, Height,... Start Date: 11/16/21 Stop Date: 06/14/22 Status: Ordered Trelegy Ellipta 200 mcg-62.5 mcg-25 mcg/inh inhalation powder 1 puffs, Inhalation, Daily, at the same time every day, # 1 each, 6 Refills, Maintenance, 11/06/21 12:01:00 EDT, Powder, [facility]/pharmacy #[id number], Partial fill [...] disorder Confirmed Active Severe obesity Confirmed Active Vital Signs Most recent to oldest [Reference Range]: 1 Height 147 cm (05/02/22 7:52 AM) Weight 140.1 kg (05/02/22 7:52 AM) Body Mass Index [18.5-24.99 kg/m2] 64.83 kg/m2 *>HHI* (05/02/22 7:52 AM) Social History Social History Type Response Smoking Status Former smoker; Tobac co user in household: No; Other: pt states she quit smoking 30 years ago; entered on: 08/28/15 Sex Patient Care team information Care Team Personnel Name: Miguel CORNELL, Rabia Haider Position: [facility] Outreach Member Role: PCP Address: Address: [address] [place] [address] Name: Olman HARPER, Amanda Position: [facility] RN Member Role: Primary Care Nurse Care Team Related Persons Name: FADI DYSON Address: home [address] [place] [address] Name: MARY DYSON Name: SHEA DYSON Address: home [address] [place] [address]
--- OUTSIDE RECORDS SUMMARY | 2023-07-29 05:57 | XMS_ITS | Continuity of Care Document ---
Author Organization [facility] Address [address] [place] [address], [address] [place] [address]- Care Team Providers Care Front Desk Name Role Phone Reece Villeda Primary Care Physician [phone] Encounter [facility] [place] Date(s): 12/31/22 - 01/30/[address], [address] [place], [place] [address] Attending Physician: Admtaniya, Christie Admitting Physician: [id number] Referring Physician: Admtr, Ar8 Allergies, Adverse Reactions, [...] Refills, Maintenance, 06/03/22 17:52:00 EST, Solution, [facility]/pharmacy #[id number], J45. 0, 147, cm, 06/03/22 14:49:00 EST, Height, 62.2, kg, 11/13/21 15:28:00 EDT, Dry Weight Start Date: 06/03/22 Status: Ordered budesonide 0.5 mg/2 mL inhalation suspension 0.5 mg, 2, mL, Neb, 2 times a day, # 120 mL, Refills 5, Tot. Refills 5, Maintenance, 06/03/22 17:52:00 EST, Suspension, Route to Pharmacy Electronically, [id number], [facility]/pharmacy #2339, J45. 0, 147, cm, 06/03/22 14:49:00 EST,... Start Date: 06/03/22 Stop Date: 11/30/22 Status: Ordered chlorthalidone 25 mg oral tablet 25 mg, 1, tablet, By Mouth, Daily, # 30 tablet, Refills 0, Maintenance, 11/16/21 15:28:00 EDT, Partial fill upon patient request if the prescription is for a schedule II opioid drug. Start Date: 11/16/21 Status: Ordered [facility] Rx Refills 0, Maintenance, 06/19/22 10:38:00 EDT, [...] Maintenance, 10/14/22 15:45:00 EDT, EC Capsule, [facility]/pharmacy #[id number], Partial fill upon george... Start Date: 10/14/22 Stop Date: 11/13/22 Status: Ordered oxyCODONE 5 mg oral tablet 5 mg, 1, tablet, By Mouth, Every 4 hours, PRN, # 42 tablet, Refills 0, Tot. Refills 0, Maintenance,as needed for pain, 06/19/22 16:30:00 EDT, Route to Pharmacy Electronically, [facility], Partial fill upon patient request if [...] 0 Refills, Maintenance, 07/16/22 16:34:00 EDT, [facility]/pharmacy #[id number], Partial fill upon patient request if the prescription is for a schedule II opioid drug., 147.3, cm, 07/16/22 13:30:00 EDT, H... Start Date: 07/16/22 Stop Date: 08/15/22 Status: Ordered tiZANidine 4 mg oral tablet 4 mg, 1, tablet, By Mouth, 3 times a day, PRN, # 90 tablet, Refills 0, Tot. Refills 0, Maintenance,Spasm, 06/19/22 16:30:00 EDT, Route to Pharmacy Electronically, [facility], Partial fill upon patient request [...] Reference Physician Member Role: PCP Address: Address: [address] [place] [address], [address] [place] [address]- Care Team Related Persons Name: MARY DYSON Name: DALLAS DYSON Name: SHEA DYSON Address: home [address] [place] [address]
--- OUTSIDE RECORDS SUMMARY | 2023-07-29 05:57 | XMS_ITS | Continuity of Care Document ---
Author Organization [facility] Address [address] [place] [address]- Care Team Providers Care Compliance Analyst Name Role Phone Miguel CORNELL, Rabia Haider Primary Care Physic sade [place] [facility] [place]16[place] - 12/16/21 [facility] [address] [place] [address]- Attending Physician: Christie Rai Admitting Physician: AdmChristie [...] Soft Stop, 11/06/21 12:03:00 EDT, Tablet, [facility], Partial fill upon patient request if the [...] Maintenance, 12/11/21 9:32:00 EDT, [facility]), 90, USE 1 INHALATION BY [...] 6 Refills, Maintenance, 11/16/21 15:33:00 EDT, Aerosol, [facility]/pharmacy #[id number], Partial fill upon patient [...] 15:31:00 EDT, Aerosol, Route to Pharmacy Electronically, [id number], [facility]/pharmacy #2339, 147, cm, 11/16/21 15:21:00 EDT, Height,... Start Date: 11/16/21 Stop Date: 06/14/22 Status: Ordered Trelegy Ellipta 200 mcg-62.5 mcg-25 mcg/inh inhalation powder 1 puffs, Inhalation, Daily, at the same time every day, # 1 each, 6 Refills, Maintenance, 11/06/21 12:01:00 EDT, Powder, [facility]/pharmacy #[id number], Partial fill upon patient [...] quit smoking 30 years ago; entered on: 5/23/16 Sex Care Team Personnel Name: Miguel CORNELL, Rabia Haider Address: [address] [place] [address], [address] [place], [place] [address]
--- OUTSIDE RECORDS SUMMARY | 2023-07-29 05:57 | XMS_ITS | Continuity of Care Document ---
Author Organization [facility] Address [address] [place], [place] [address]ie [address], [address] [place] [address]- Care Team Providers Care Post Partum Nurse Name Role Phone Miguel CORNELL, Rabia Haider Primary Care Physic sade [id number] - 05/03/22 [facility] [address] [place] [address] Drive, [address] [place], [place] [address] Allergies, Adverse Reactions, Alerts [...] Soft Stop, 11/06/21 12:03:00 EDT, Tablet, [id number], Partial fill upon patient request if the [...] Maintenance, 12/11/21 9:32:00 EDT, [facility]), 90, USE 1 INHALATION BY [...] 6 Refills, Maintenance, 11/16/21 15:33:00 EDT, Aerosol, [facility]/pharmacy #2339, Partial fill upon patient request if [...] MSM 1000mg MSM 1000mg, Refills 0, Maintenance, 07/24/19 9:23:26 EDT, Compound Start Date: 10/28/18 Status: Ordered Multivitamin By Mouth, Daily, 0 Refills, Maintenance Start Date: 04/10/10 Status: Ordered Symbicort 80mcg/4.5mcg Inhaler 2, puffs, Inhalation, 2 times a day, # 1 each, Refills 6, Tot. Refills 6, Maintenance, 11/16/21 15:31:00 EDT, Aerosol, Route to Pharmacy Electronically, [id number], [facility]/pharmacy #2339, 147, cm, 11/16/21 15:21:00 EDT, Height,... Start Date: 11/16/21 Stop Date: 06/14/22 Status: Ordered Trelegy Ellipta 200 mcg-62.5 mcg-25 mcg/inh inhalation powder 1 puffs, Inhalation, Daily, at the same time every day, # 1 each, 6 Refills, Maintenance, 11/06/21 12:01:00 EDT, Powder, [facility]/pharmacy #2339, Partial fill upon patient request if [...] S Outreach Member Role: PCP Address: Address: [address] [place] [address], [place] [address]- Name: Olman HARPER, Amanda Position: S RN Member Role: Primary Care Nurse Care Team Related Persons Name: FADI DYSON Address: home [address] [place] [address] Name: MARY DYSON Name: SHEA DYSON Address: home [address] [place] [address]
--- OUTSIDE RECORDS SUMMARY | 2023-07-29 05:57 | XMS_ITS | Continuity of Care Document ---
Author Organization [facility] Address [address] [place] [address] [address], [address] [place] [address]- Care Team Providers Care Plodder Operator Name Role Phone Reece Villeda Primary Care Physician [phone] Encounter [facility] Date(s): 12/31/22 - 01/07/23 [facility] [address] [place] [address] Drive, [address] [place], [place] [address] Attending Physician: Kendall Garrett MD Allergies, Adverse Reactions, [...] 5 Refills, Maintenance, 06/03/22 17:52:00 EST, Solution, [facility]/pharmacy #[id number], J45. 0, 147, cm, 06/03/22 14:49:00 EST, Height, 62.2, kg, 11/13/21 15:28:00 EDT, Dry Weight Start Date: 06/03/22 Status: Ordered budesonide 0.5 mg/2 mL inhalation suspension 0.5 mg, 2, mL, Neb, 2 times a day, # 120 mL, Refills 5, Tot. Refills 5, Maintenance, 06/03/22 17:52:00 EST, Suspension, Route to Pharmacy Electronically, [id number], [facility]/pharmacy #[id number], J45. 0, 147, cm, 06/03/22 14:49:00 EST,... Start Date: 06/03/22 Stop Date: 11/30/22 Status: Ordered chlorthalidone 25 mg oral tablet 25 mg, 1, tablet, By Mouth, Daily, # 30 tablet, Refills 0, Maintenance, 11/16/21 15:28:00 EDT, Partial fill upon patient request if the prescription is for a schedule II opioid drug. Start Date: 11/16/21 Status: [facility], Maintenance, 06/19/22 [...] Refills, Maintenance, 10/14/22 15:45:00 EDT, EC Capsule, [facility]/pharmacy #[id number], Partial fill upon george... Start Date: 10/14/22 Stop Date: 11/13/22 Status: Ordered oxyCODONE 5 mg oral tablet 5 mg, 1, tablet, By Mouth, Every 4 hours, PRN, # 42 tablet, Refills 0, Tot. Refills 0, Maintenance,as needed for pain, 06/19/22 16:30:00 EDT, Route to Pharmacy Electronically, [facility], Partial fill upon patient request if the [...] capsule, 0 Refills, Maintenance, 07/16/22 16:34:00 EDT, [facility]/pharmacy #[id number], Partial fill upon patient request if the prescription is for a schedule II opioid drug., 147.3, cm, 07/16/22 13:30:00 EDT, H... Start Date: 07/16/22 Stop Date: 08/15/22 Status: Ordered tiZANidine 4 mg oral tablet 4 mg, 1, tablet, By Mouth, 3 times a day, PRN, # 90 tablet, Refills 0, Tot. Refills 0, Maintenance,Spasm, 06/19/22 16:30:00 EDT, Route to Pharmacy Electronically, [facility], Partial fill upon patient [...] recent to oldest [Reference Range]: 1 Height 149 cm (12/31/22 12:27 PM) Weight 62.0 kg (12/31/22 12:27 PM) Body Mass Index [18.5-24.99 kg/m2] 27.93 kg/m2 *H* (12/31/22 12:27 PM) Social History Social History Type Response Smoking Status Former smoker; Tobac co user in household: No; Other: pt states she quit smoking 30 years ago; entered on: 08/28/15 Sex Patient Care team information Care Team Personnel Name: Olman HARPER, Amanda Position: S RN Member Role: Primary Care Nurse Name: Reece Villeda Position: Reference Physician Member Role: PCP Address: Address: [address] [place] [address], [address] [place] [address]- Care Team Related Persons Name: MARY DYSON Name: DALLAS DYSON Name: SHEA DYSON Address: home [address] [place] [id number]
--- OUTSIDE RECORDS SUMMARY | 2023-07-29 05:57 | XMS_ITS | Continuity of Care Document ---
Author Organization [facility] ed[facility] Address [address] [place] [address]- Care Team Providers Care Order Analyst Name Role Phone Reece Villeda Primary Care Physician [phone] Encounter [facility] Date(s): 05/15/23 - 06/14/23 [facility] [address] [place] [address] Allergies, Adverse Reactions, Alerts No Known [...] 17:52:00 EST, Suspension, Route to Pharmacy Electronically, [id number], [facility]/pharmacy #[id number], J45. 0, 147, cm, 06/03/22 [...] need lifetime 99 months Dx Asthma J45.909, 02... Start Date: 06/04/22 Status: Ordered omeprazole 40 mg oral enteric coated capsule 1 capsule = 40 mg, By Mouth, 2 times a day, report back to Dr Samaniego after > 2 weeks on twice daily therapy to see if cough is better, # 60 capsule, 0 Refills, Maintenance, 10/14/22 15:45:00 EDT, EC Capsule, [facility]/pharmacy #[id number], Partial fill upon george... Start Date: 10/14/22 Stop Date: 11/13/22 Status: Ordered oxyCODONE 5 mg oral tablet 5 mg, 1, tablet, By Mouth, Every 4 hours, PRN, # 42 tablet, Refills 0, Tot. Refills 0, Maintenance,as needed for pain, 06/19/22 16:30:00 EDT, Route to Pharmacy Electronically, [facility], Partial fill upon patient request if [...] capsule, 0 Refills, Maintenance, 07/16/22 16:34:00 EDT, [facility]/pharmacy #[id number], Partial fill upon patient request if the prescription is for a schedule II opioid drug., 147.3, cm, 07/16/22 13:30:00 EDT, H... Start Date: 07/16/22 Stop Date: 08/15/22 Status: Ordered tiZANidine 4 mg oral tablet 4 mg, 1, tablet, By Mouth, 3 times a day, PRN, # 90 tablet, Refills 0, Tot. Refills 0, Maintenance,Spasm, 06/19/22 16:30:00 EDT, Route to Pharmacy Electronically, [facility], Partial fill upon patient [...] Reference Physician Member Role: PCP Address: Address: [address] [place] [address], [address] [place], [place] [address] Care Team Related Persons Name: FER PURVIS Address: home [address] [address] Name: MARY DYSON Name: DALLAS DYSON Name: SHEA DYSON Address: home [address] [place] [address]
--- OUTSIDE RECORDS SUMMARY | 2023-07-29 05:57 | XMS_ITS | Continuity of Care Document ---
Author Organization [facility] Address [address] [place] [address]- Care Team Providers Care Ditto Machine Operator Name Role Phone Miguel CORNELL, Rabia Haider Primary Care Physic sade Encounter [facility] Date(s): 02/04/22 - 03/06/22 [facility] [address] [place], [place] [address] Attending Physician: Christie Rai Admitting Physician: AdmtrChristie [...] Soft Stop, 11/06/21 12:03:00 EDT, Tablet, [id number], Partial fill upon patient request if the [...] Maintenance, 12/11/21 9:32:00 EDT, [facility]), 90, USE 1 INHALATION BY [...] Refills, Maintenance, 11/16/21 15:33:00 EDT, Aerosol, [facility]/pharmacy #[id number], Partial fill upon patient request if [...] 15:31:00 EDT, Aerosol, Route to Pharmacy Electronically, [id number], [facility]/pharmacy #[id number], 147, cm, 11/16/21 15:21:00 EDT, Height,... Start Date: 11/16/21 Stop Date: 06/14/22 Status: Ordered Trelegy Ellipta 200 mcg-62.5 mcg-25 mcg/inh inhalation powder 1 puffs, Inhalation, Daily, at the same time every day, # 1 each, 6 Refills, Maintenance, 11/06/21 12:01:00 EDT, Powder, [facility]/pharmacy #[id number], Partial fill upon patient request if [...] Team Personnel Name: Rabia Rivera MD Position: [facility] Outreach Member Role: PCP Address: Address: [address] [place] [address], [facility] [place] [address]- Name: Amanda Thurman RN Position: [facility] RN Member Role: Primary Care Nurse Care Team Related Persons Name: FADI DYSON Address: home [address] [place] [address] Name: MARY DYSON Name: SHEA DYSON Address: home [address] [place] [address]
--- OUTSIDE RECORDS SUMMARY | 2023-07-29 05:57 | XMS_ITS | Continuity of Care Document ---
Author Organization [facility] Address [address] [place] [address] [address], [address] [place] [address]- Care Team Providers Care Technical Support Technician Name Role Phone Miguel CORNELL, Rabia Haider Primary Care Physic sade Encounter [facility] Date(s): 06/10/22 - 07/10/[address], [address] [place], [place] [address] Allergies, Adverse Reactions, Alerts No Known [...] 5 Refills, Maintenance, 06/03/22 17:52:00 EST, Solution, [facility]/pharmacy #[id number], J45. 0, 147, cm, 06/03/22 14:49:00 EST, Height, 62.2, kg, 11/13/21 15:28:00 EDT, Dry Weight Start Date: 06/03/22 Status: Ordered budesonide 0.5 mg/2 mL inhalation suspension 0.5 mg, 2, mL, Neb, 2 times a day, # 120 mL, Refills 5, Tot. Refills 5, Maintenance, 06/03/22 17:52:00 EST, Suspension, Route to Pharmacy Electronically, [id number], [facility]/pharmacy #[id number], J45. 0, 147, cm, [...] EDT, Route to Pharmacy Electronically, [facility], Partial fill upon patient request if [...] Personnel Name: Miguel CORNELL, Rabia Haider Position: [facility] Outreach Member Role: PCP Address: Address: [address] [place] [address] Name: Amanda Thurman RN Position: [facility] RN Member Role: Primary Care Nurse Care Team Related Persons Name: FADI DYSON Address: home [address] [place] [address] Name: MARY DYSON Name: SHEA DYSON Address: home [address] [place] [id number]
--- OUTSIDE RECORDS SUMMARY | 2023-07-29 05:58 | XMS_ITS | Continuity of Care Document ---
Author Organization [facility] Address [address] [place] [address] [address], [address] [place] [address]- Care Team Providers Care Math Professor Name Role Phone Miguel CORNELL, Rabia Haider Primary Care Physic sade Encounter [facility] Date(s): 04/26/22 - 05/26/22 [facility] Neurosurgery [address] [place] [address] Drive, [address] [place], [place] [address] Allergies, Adverse Reactions, Alerts No [...] Refills, Soft Stop, 11/06/21 12:03:00 EDT, Tablet, [facility]/pharmacy #[id number], Partial fill upon patient request if the [...] 6 Refills, Maintenance, 11/16/21 15:33:00 EDT, Aerosol, [facility]/pharmacy #[id number], Partial fill upon patient request if [...] 15:31:00 EDT, Aerosol, Route to Pharmacy Electronically, [id number], [facility]/pharmacy #[id number], 147, cm, 11/16/21 15:21:00 EDT, Height,... Start Date: 11/16/21 Stop Date: 06/14/22 Status: Ordered Trelegy Ellipta 200 mcg-62.5 mcg-25 mcg/inh inhalation powder 1 puffs, Inhalation, Daily, at the same time every day, # 1 each, 6 Refills, Maintenance, 11/06/21 12:01:00 EDT, Powder, [facility]/pharmacy #[id number], Partial fill upon patient request if [...] Team Personnel Name: Rabia Rivera MD Position: [facility] Outreach Member Role: PCP Address: Address: [address] [place] [address], [place] [address]- Name: Olman HARPER, Amanda Position: S RN Member Role: Primary Care Nurse Care Team Related Persons Name: FADI DYSON Address: home [address] [place] [address] Name: MARY DYSON Name: SHEA DYSON Address: home [address] [place] [address]
[2023-07-29] MEDS: Gabapentin 300 MG CAPSULE PO (06:31)
[2023-07-29] MEDS: methocarbamoL 750 MG TABLET PO (06:31)
[2023-07-29] MEDS: Lactated Ringers 1,000 ML 100 ML IVCONT (06:38)
--- NOTE | 2023-07-29 06:54 | MHC.SHP ---
Pre-Procedural Eval Section A - 24 Hr Update-Section A only Date of Service: 07/29/23 The patient is an INPATIENT: No Changes since office visit: No Cold of Flu in the past 2 weeks, No New Medical Problems, No Changes in Medication and No Patient answered all questions The patient has been examined within 24 hours of the surgical procedure. The History & Physical has been completed within 30 days and I have reviewed it.: No Section B - Complete if H&P > 30 days Chief Complaint: Lumbar DDD Allergies: Allergies Allergy/AdvReac Type Severity Reaction Status Date / Time diphenhydramine AdvReac Mild Agitated Verified 07/29/23 06:17 meloxicam AdvReac Mild Vomiting Verified 07/29/23 06:17 Review of Systems Sugical H&P ROS: Negative: Constitution, Cardiovascular, Respiratory, Neurological, Psychiatric, Hem-Onc, Allergic/Immunologic, Gastrointestinal, Genitourinary, Musculoskeletal, Integumentary, Endocrine and Eyes/Ears/Nose/Throat Exam Surgical H&P Exam: Not Evaluated: HEENT, Not Evaluated: Heart, Not Evaluated: Lungs, Not Evaluated: Extremities, Not Evaluated: Abdomen, Not Evaluated: Skin and Not Evaluated: Neurological Plan Diagnosis/Plan: Unchanged L2-5 oblique lumbar interbody fusion Time Spent With Patient Time: Total time managing care of this patient today _6__ minutes.
--- NOTE | 2023-07-29 11:03 | W.PM.OPN ---
Operative Note Operative Note Date of Service: 07/29/23 Narrative: Preop Diagnosis: 1.) Lumbar degenerative scoliosis and lumbar spondylolisthesis 2.) Right lumbar radiculopathy and coccydynia Procedure: 1) L3-4 and L4-5 discectomy, arthrodesis and implantation cage through an anterolateral, retroperitoneal approach 2) L3-L5 posterior instrumented fusion 3) allograft 4) injection of 10 cc of Exparel at the L4 transverse process for a muscular erector spinae block and additional Exparel in paravertebral tissue for postop management Consent Informed Consent was obtained for this operation. I have explained the nature, purpose and benefits of the operation. I have discussed the risks and benefit of the operation including possible complications or adverse events with patient/family. Alternative(s) were discussed with the patient with their relative benefits and risks as well as the consequences of not accepting the operation were included in obtaining consent. Surgeon: BELINDA DIXON MD, PHD Procedure Assisted By: rob Aguiar Description of Procedure This patient is suffering from severe right lumbar radiculopathy and coccydynia. Imaging reviews a grade 2 L4-5 spondylolisthesis, L3-4 lateral listhesis and a lumbar degenerative scoliosis causing central spinal stenosis and foraminal stenosis. The patient was offered an oblique lumbar interbody fusion L2-L5. The procedure complications were explained. The patient was consented. The patient was brought to the operating room and endotracheally intubated. The patient was turned in a lateral position with the left side up. Prep and drape was done followed by timeout. A small incision was made in the left lower abdominal quadrant. The muscle fascia was opened after which the 3 muscle layer was split to enter the retroperitoneal space. Dilators were docked in the anterior one third of the L4-5 disc space followed by a retractor. The retractor was opened. The L4-5 disc space was exposed. An annulotomy was done after which an elevator Hart was used to release the disc material from its endplates and to perforate the contralateral side. A partial discectomy was done. An 8 mm height trial implant was inserted. The discectomy was completed. The endplates were prepared. An 8 mm x 45 mm with 0 degree lordosis 4 web cage filled with allograft was inserted into the disc space under fluoroscopic guidance. This resulted in correction of the L4-5 spondylolisthesis. The retractor was removed and repositioned over the L3-4 disc space. The disc space was collapsed on the right side. An elevate a Hart was advanced from the left side towards the contralateral side to open up the contralateral annulus. Diskectomy was done followed by preparation of the endplates. An 8 mm trial implant was inserted and corrected the disc collapse and lateral listhesis. Therefore a 8 mm x 45 mm and 6 degree lordosis 4 web cage filled with allograft was inserted into the disc space at L3-4. This resulted in a near complete correction of the degenerative scoliosis. The original plan was to also include L2-3 in the fusion. I tried to get a corridor towards the L2-3 disc space but the approach was hindered by overlying structures that I was unable to release sufficiently to get a safe approach. As stated before, the images over the reviewed a near complete correction of the deformity and therefore I decided not to further pursue the L2-3 disc space. Hemostasis was done. The incision was closed in 2 layers. Steri-Strips used to approximate incision. An OpSite with Tegaderm was used to cover the incision. This marked first part of the procedure. The patient was turned prone on the Hugo spine table. 2C arms were installed for fluoroscopy. Prep and drape was done followed by a second timeout. 2 paramedian incisions were made lateral from the L3-L5 pedicles. The muscle fascia was opened after which the muscle layer was split bluntly to expose the posterolateral gutter. The following steps were taken. A pediguard tap was used to create a transpedicular trajectory into the vertebral body. A K wire was placed. A specially designed instrument was advanced over the K wire to decorticate the posterolateral gutter in preparation for the posterolateral fusion. A pedicle screw was advanced over the K wire and the K wire was removed. The steps were done for the bilateral L3, L4 and L5 pedicles. A total of 6 Astura screws were placed with the following diameters: 6.5 x 45 mm in the bilateral L3 pedicles, 6.5 x 45 mm in the right L4 pedicle and a 7.5 x 40 mm in the left L4 pedicle and 6.5 x 40 mm in the bilateral L5 pedicles. Originally, we attempted to insert a 6.5 x 40 mm in the left L4 pedicle but due to osteoporosis the screw broke out and was replaced by a larger diameter screw which did have suboptimal purchase. The pedicle screws were connected with 60 mm chris bilaterally and locked down with locking caps. The extension towers were removed. The posterolateral gutter was filled with allograft to complete the posterolateral L3-L5 fusion Hemostasis was done and the incision was closed in 2 layers. Steri-Strips were used to approximate the incision. An OpSite were taken and was used to cover the incision. All sponge and needle counts were correct. Patient was extubated and transferred in stable is to recovery room. This procedure was done with the aid of a physician assistant manager airside operations who assisted with the interpretation of x-rays, insertion of pedicle screws and closure of the paramedian incisions. Anesthesia: General Estimated Blood Loss (ml): 40 mL Duration of Surgery: 3 hours Complications: None Postoperative Plan: Admit to inpatient for observation
[2023-07-29] MEDS: HYDROmorphone HCl 0.5 MG/0.5 ML SYRINGE 0.25 MG IVPUSH ×3 (11:40→12:05)
[2023-07-29] MEDS: oxyCODONE HCl Immed Release 5 MG TABLET PO (12:06)
[2023-07-29] MEDS: 0.9 % Sodium Chloride 1,000 ML 75 ML IVCONT (13:01)
[2023-07-29] MEDS: Acetaminophen 1,000 MG/100 ML PIGGYBACK 400 MG IV ×3 (13:13→22:35)
[2023-07-29] MEDS: ceFAZolin Sodium/Dextrose,Iso 2 GM/50 ML PIGGYBACK IV ×2 (13:51→21:46)
--- NOTE | 2023-07-29 14:49 | PC.NURSE ---
PT in to work with pt, pt able to sit at side of bed when standing PT reports pt c/o feeling very dizzy and like she is going to pass out so PT assisted pt back to bed and laying down, once laying down pt slow to respond at first, stopped answering questions from PT, this RN to bedside, pt able to answer questions appropriately, slow to respond at first but woke up more as the conversation went on. VSS, hand grasps equal, pt c/o gas pain and dry mouth. Safety precautions remain in place, call marshall within reach.
[2023-07-29] MEDS: Simethicone 80 MG TAB.CHEW PO ×2 (16:24→23:21)
[2023-07-29] MEDS: Ketorolac Tromethamine 15 MG/ML VIAL IVPUSH ×2 (16:26→22:34)
[2023-07-29] MEDS: Docusate Sodium 100 MG CAPSULE PO (20:38)
[2023-07-29] MEDS: valACYclovir HCL 1,000 MG TABLET 1000 MG PO (20:38)
[2023-07-30] MEDS: 0.9 % Sodium Chloride 1,000 ML 75 ML IVCONT (02:17)
[2023-07-30 03:20] VITALS: BP 104/53; PULSE 73; RESP 18; TEMP 36.8; O2SAT 96
[2023-07-30] MEDS: HYDROmorphone HCl 1 MG/ML SYRINGE IVPUSH ×3 (04:18→16:38)
[2023-07-30] MEDS: Acetaminophen 1,000 MG/100 ML PIGGYBACK 400 MG IV ×2 (04:19→12:26)
[2023-07-30] MEDS: Ketorolac Tromethamine 15 MG/ML VIAL IVPUSH ×3 (04:20→17:17)
[2023-07-30] MEDS: Omeprazole 20 MG CAPSULE.DR PO (06:25)
[2023-07-30 07:51] VITALS: BP 107/53; PULSE 68; RESP 18; TEMP 36.7; O2SAT 96
--- NOTE | 2023-07-30 09:21 | P.DS_ITS ---
DS: Providers Provider Date of Service: 07/30/23 Date of admission: 07/29/23 05:52 Primary care physician: Reece Anglin PA-C DS: Summary Time Attestation Discharge Coordination Time (in mins): 15 Quality: Safe Use of Opioids Does Pt have an Active Cancer Diagnosis on the Problem List?: No Quality: Stroke Does the patient have a stroke diagnosis?: No Physical Exam Vital Signs: Vital Signs: Last Vital Signs Temp 98.0 F 07/30/23 07:51 Pulse 68 07/30/23 07:51 Resp 18 07/30/23 07:51 BP 107/53 L 07/30/23 07:51 Pulse Ox 96 07/30/23 07:51 O2 Del Method Room Air 07/30/23 07:51 O2 Flow Rate 6 07/29/23 11:40 BMI result Body Mass Index 28.6 Discharge Plan Discharge Anticipated Discharge Date/Time: 07/30/23 09:21 Patient Disposition: Home, Self-Care Discharge Diagnosis: S/P L3-5 OLIF Referrals: Reece Anglin PA-C [Primary Care Provider] - 1 Week Discharge Medications: New hydrocodone-acetaminophen 5-325 mg tablet 1 tab PO Q6H PRN (Reason: SEVERE PAIN) Qty: 30 0RF Rx Instructions: Partial Fill upon patient request. Continued multivitamin Tablet 1 tab PO DAILY atorvastatin 20 mg Tablet 20 mg PO DAILY biotin 5 mg Capsule 5 mg PO DAILY valacyclovir 1 gram tablet 1,000 mg PO Q12H clonazepam 0.5 mg Tablet 0.5 mg PO DAILY PRN (Reason: Anxiety) chlorthalidone 25 mg Tablet 25 mg PO DAILY acetaminophen 500 mg Tablet 500 mg PO Q6H PRN (Reason: Outbreak) pantoprazole 40 mg Tablet,Delayed Release (Dr/Ec) 40 mg PO DAILY albuterol sulfate 90 mcg/actuation HFA aerosol inhaler 2 puff inhalation Q6H PRN (Reason: wheezing) Diet: Advance to usual diet Activity on Discharge: As tolerated Stand Alone Forms: Patient Portal Discharge page Print Language: Lao Care Plan Goals: Return to normal activity as tolerated Health Concerns: None Plan of Treatment: Follow-up in clinic in 2-3 weeks Assessment: POD: 1 Procedure: L3-5 VAIBHAV Falk reports she has been up out of bed and is otherwise doing well. She was seen this morning in bed sitting upright on 3 eating breakfast. She still reports pain in her right hip, with good relief with pain medication. She is voiding well and tolerating diet. She did request VNA services at home, which we will accommodate. Afebrile, vital signs stable. Full strength in bilateral LEs. Back and clayton-lateral dressings have some staining without signs of hematoma. No active sanguineous drainage. Area is dry. Plan: Patient meets criteria to be medically discharged home. Dr. Powell is aware of and agrees to this plan. The patient agrees to this plan. We will manage her pain control without home Vicodin, this has been sent into the pharmacy here at [facility]. I will complete a [id number] if she can have VNA services at home. Afshin Powell MD,PhD [facility]
--- NOTE | 2023-07-30 09:26 | HO.NEURO.PN ---
Neurosurgery Operative Note Date of Service: 07/30/23 Narrative: POD: 1 Procedure: L3-5 VAIBHAV Falk reports she has been up out of bed and is otherwise doing well. She was seen this morning in bed sitting upright on [address] eating breakfast. She still reports pain in her right hip, with good relief with pain medication. She is voiding well and tolerating diet. She did request VNA services at home, which we will accommodate. Afebrile, vital signs stable. Full strength in bilateral LEs. Back and clayton-lateral dressings have some staining without signs of hematoma. No active sanguineous drainage. Area is dry. Plan: Patient meets criteria to be medically discharged home. Dr. Powell is aware of and agrees to this plan. The patient agrees to this plan. We will manage her pain control without home Vicodin, this has been sent into the pharmacy here at [facility]. I will complete a paii-je-ebvk if she can have VNA services at home. Afshin Powell MD,PhD [facility]
--- NOTE | 2023-07-30 09:30 | P.F2F_ITS ---
Service Date Service Date: 07/30/23 Encounter Date of encounter: 07/30/23 Reasons for Services Signs and symptoms assessed: S/p L3-5 OLIF lumbar fusion 07/29/23 Reason for detention: wound care, postoperative assessment and/or care and medication management Reason for physical therapy: home safety and mobility, therapeutic exercises, gait/transfer training and ADL training Reason for occupational therapy: home safety and mobility, therapeutic exercises and gait/transfer training MD Overseeing Care: David Powell Homebound: Leaving the home is medically contraindicated at this time without the asist of a device and/or another person due th the listed conditions above and below. Reason homebound: unsteady gait / fall risk, leg weakness and weakness related to hospital stay Certification: Based on the above findings, I certify that this patient is confined to the home and needs intermittent detention care, physical therapy and/or speech therapy, or continues to need occupational therapy. The patient is under my care, and I have initiated the establishment of the plan of care. The patient will be followed by a physician who will periodically review the plan of care. Time Spent With Patient Time: Total time managing care of this patient today __15__ minutes.
[2023-07-30] MEDS: Multivitamin TABLET 1 TAB PO (09:36)
[2023-07-30] MEDS: Atorvastatin Calcium 20 MG TABLET PO (09:36)
[2023-07-30] MEDS: Docusate Sodium 100 MG CAPSULE PO (09:36)
[2023-07-30] MEDS: valACYclovir HCL 1,000 MG TABLET 1000 MG PO (09:36)
--- NOTE | 2023-07-30 09:46 | MHC.CM.PN ---
Addendum entered by Stefani Sanon 07/30/23 13:05: DP: PT HAS BEEN MEDICALLY CLEARED FOR DC HOME WITH NEW VNA SERVICES VIA [facility]. [facility] AWARE OF TODAY'S DC. PT HAS OWN RIDE HOME. Original Note: IMM 07/29 PT LIVES ALONE IN A 1 LEVEL HOME. INDEPENDENT AT BASELINE. NO HCP AND PT DECLINES TO COMPLETE ONE AT THIS TIME. PCP NICOLASA DELGADO. DP: HOME WITH NEW VNA FOR P.T., REFERRALS SENT. PT HAS OWN RIDE HOME. CM WILL CONTINUE TO FOLLOW FOR ANY CHANGE IN DC NEEDS/PLAN.
--- NOTE | 2023-07-30 12:12 | HO.POSTANES ---
Post Anesthesia Evaluation Post Anesthesia Evaluation Date of Service: 07/29/23 Vital Signs: Vital Signs Temp Pulse Resp BP Pulse Ox O2 Del Method 07/30/23 07:51 98.0 F 68 18 107/53 L 96 Room Air 07/30/23 03:20 98.2 F 73 18 104/53 L 96 Room Air Anesthesia: General Mental Status: Awake Pain Control: Satisfactory Nausea/Vomiting: None Hydration: Adequate Anesthesia-Related Issues: No Anes. Related Issues
[2023-07-30] MEDS: Simethicone 80 MG TAB.CHEW PO (12:33)
--- NOTE | 2023-07-30 12:46 | PHA.MEDREC ---
Pharmacy Consult ? Medication Reconciliation Pharmacy has completed the medication reconciliation. Reviewed med rec done by nursing
[2023-07-30 16:17] VITALS: BP 136/64; PULSE 76; RESP 20; TEMP 36.8; O2SAT 96
== END 2023-07-30 17:50 | disposition home health service (06) | DRG 458 ==
LOC: HO.SSSA 07:47 → HO.S3 11:39
PROVIDERS: Admitting Provider Neurological Surgery; PCP Registered Nurse; Visit Provider Neurological Surgery
PROC: 0SG10A0 Fusion of 2 or more Lumbar Vertebral Joints with Interbody Fusion Device, Anterior Approach, Anterior Column, Open Approach (ICD-10-PCS; principal; 2023-07-29 07:30)
DX: M43.16 Spondylolisthesis, lumbar region (principal); M41.56 Other secondary scoliosis, lumbar region; M54.16 Radiculopathy, lumbar region; M53.3 Sacrococcygeal disorders, not elsewhere classified; J44.9 Chronic obstructive pulmonary disease, unspecified; Z87.891 Personal history of nicotine dependence; Z79.899 Other long term (current) drug therapy
CPT/HCPCS: 72100; 86850; 86900; 86901; 97116; 97162; 97530; C1713; C1889; C9290; J0131; J0665; J0690; J1100; J1170; J1885; J2250; J2371; J2405; J2704; J3010; L8699

== ENCOUNTER → 2023-07-29 05:52 | Outpatient (BNV) | payer MEDICARE, SELFPAY | PROVIDERS: Admitting Provider Neurological Surgery; PCP Registered Nurse; Visit Provider Neurological Surgery | DX: M48.062 Spinal stenosis, lumbar region with neurogenic claudication (principal); M41.56 Other secondary scoliosis, lumbar region | CPT/HCPCS: 20930; 22558; 22585; 22612; 22614; 22840; 22853; 99024; 99499; G0180 ==

== ENCOUNTER 2023-08-11 15:00 | Outpatient (REF) | payer MEDICARE, SELFPAY | END 2023-08-11 15:01 | disposition home or self-care (01) | LOC: HO.HOSX 15:00 | PROVIDERS: Visit Provider Physician Assistant | DX: Z13.89 Encounter for screening for other disorder (principal) ==

== ENCOUNTER 2023-08-12 11:11 | Outpatient (REF) | payer MEDICARE, SELFPAY ==
--- NOTE | ~2023-08-12 | XR_ITS ---
EXAMINATION: XR LUMBOSACRAL SPINE FLEXION AND EXTENSION CLINICAL INFORMATION: Lumbar spondylolisthesis. COMPARISON: Prior radiographs, most recently 07/30/2023. TECHNIQUE: AP, and lateral (neutral, flexion and extension) views of the lumbosacral spine are submitted. FINDINGS: There is bony demineralization. There is a mild thoracolumbar dextroscoliosis. There is marked disc space narrowing at T12-L1 and L1-L2. At L2-L3, there is mild disc space narrowing. There is stable alignment status-post L3-L5 posterior fusions and discectomies, with intact posterior fixator rods, pedicular screws and disc spacers. No hardware failure or loosening is seen. There is a stable 3 mm anterolisthesis at L4-L5, which is unchanged with flexion or extension. No acute fracture or spondylolisthesis is seen. There is multi-level thoracolumbar endplate arthropathy. The posterior elements are intact. There is a benign sclerotic, well marginated bone island within the left sacral ala. There are aortoiliac atherosclerotic calcifications. XR/XR lumbar spine 4V min IMPRESSION: 1. There is a mild thoracolumbar dextroscoliosis. 2. There is stable alignment status-post L3-L5 posterior fusions and discectomies. No hardware failure or loosening seen. There is no instability with flexion or extension. 3. There is marked degenerative disease at T12-L1 and L1-L2, and mild degenerative disc disease is seen at L2-L3.
== END 2023-08-12 11:12 | disposition home or self-care (01) ==
LOC: HO.HOSX 11:11
PROVIDERS: Visit Provider Physician Assistant
DX: M43.16 Spondylolisthesis, lumbar region (principal)
CPT/HCPCS: 72110

== ENCOUNTER 2023-08-20 12:49 | Outpatient (AMB) | payer MEDICARE, SELFPAY ==
--- NOTE | 2023-08-20 12:51 | A.SPINEOV_ITS ---
Intake Visit Reasons: 1st post op Intake Note: Ms. Vazquez is here today for 1st post-op appointment. 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 She reports she is very satisfied with the surgery and feels much better than she did pre- operatively. The patient reports she is up walking around and completing the majority of her ADLs. She still has some left-sided anterior thigh pain, which I explained is likely a result of the surgical approach. Overall she is doing very well, and inquired about postoperative healing course including activity restrictions. I answered all of her questions to the best of my ability. No new neurological deficits. Patient is able to ambulate well, rises from a seated position without difficulty. Posterior and oblique incision sites are closed, well healing, with no signs of drainage. We will follow-up with the patient in 6 weeks for their 2nd postoperative visit. At that time we will get x-rays to review with the patient. Afshin Powell MD,PhD [facility] Coding Level of Care Code Global (42724) Diagnoses S/P lumbar fusion Z98.1
== END 2023-08-20 13:22 | disposition home or self-care (01) ==
PROVIDERS: PCP Registered Nurse; Visit Provider Physician Assistant
DX: Z98.1 Arthrodesis status (principal)
CPT/HCPCS: 99024

== ENCOUNTER → 2023-08-20 12:49 | Outpatient (BNVA) | payer MEDICARE, SELFPAY | PROVIDERS: PCP Registered Nurse; Visit Provider Physician Assistant | DX: Z98.1 Arthrodesis status (principal) | CPT/HCPCS: 99212 ==

== ENCOUNTER 2023-09-30 08:59 | Outpatient (REF) | payer MEDICARE, SELFPAY ==
--- NOTE | ~2023-09-30 | XR_ITS ---
EXAMINATION: XR LUMBOSACRAL SPINE WITH OBLIQUES CLINICAL INFORMATION: Arthrodesis status. COMPARISON: August 12, 2023. TECHNIQUE: AP, lateral neutral, flexion and extension views of the lumbar spine. FINDINGS: Diffuse demineralization. Mild dextroscoliosis of the thoracolumbar spine. Redemonstration of L3-L5 posterior fusions with posterior fixator rods, pedicle screws and disc spaces. Hardware appears intact. Grade 1 anterolisthesis of L4 on L5 of approximately 3 mm persists on flexion and extension views. Spondylosis in the remainder of the lumbar spine with marked loss of disc space height at T12-L1 and L1-L2. Mild loss of disc space height at L2-L3 with grade 1 retrolisthesis of L2 on L3. Grade 1 retrolisthesis of L2-L3 persists on flexion and extension views. Redemonstration sclerotic focus overlying the left sacral ala, possibly a bone island. XR/XR lumbar spine 4V min IMPRESSION: 1. Redemonstration of L3-L5 posterior fusion with posterior fixator rods, pedicle screws and disc spaces. Hardware appears intact. 2. Marked degenerative disc disease at T12-L1 and L1-L2. Srqd-gm-lixoytcf degenerative changes at L2-L3.
== END 2023-09-30 09:00 | disposition home or self-care (01) ==
LOC: HO.HOSX 08:59
PROVIDERS: Visit Provider Physician Assistant
DX: Z98.1 Arthrodesis status (principal)
CPT/HCPCS: 72110; 99212

== ENCOUNTER 2023-09-30 12:43 | Outpatient (AMB) | payer MEDICARE, SELFPAY ==
--- NOTE | 2023-09-30 12:57 | HO.SPINEOV ---
Intake Visit Reasons: 2nd post op with Xrays Intake Note: Ms. Vazquez is here today for her 2nd post op with xrays. 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 Her x-ray imaging from today appears stable with no obvious changes from fluoroscopy. All of her surgical instrumentation appears intact and similar to when it was placed. Unfortunately, the patient reports that she has had some new onset pain/neurological symptoms. She states she has a burning sensation in her right knee, and also states the top of her right foot feels ?cold. She reports that the burning sensation in her right knee is so bad she is being awoken from sleep at night. Thankfully she is still able to walk roughly 8000 steps per day and has not let the stop her from achieving milestones for her healing. She was evaluated by Orthopedics twice since this began 2-3 weeks ago, as she had a right knee replacement 2 years ago. They have informed her that there is nothing wrong with the right knee & encouraged her to follow up with her spine surgeon. On exam the patient has full strength of her bilateral lower extremities. Both of her patellar and Achilles reflexes are intact. There is some temperature change noted in the heel of her right foot which is colder on exam than the heel of her left foot. Her exam is otherwise benign and there are no other neurological deficits. The skin appears intact good turgor. I would like to get a repeat lumbar MRI for the patient in order to evaluate any L4/L5 right-sided nerve root impingement, although the foramen appear open on x-ray imaging today. I will follow up with her after this MRI. Afshin Powell MD,PhD [facility] Orders: Orders MR lumbar spine wo con 09/30/23 Z98.1 - Arthrodesis status XR lumbar spine 4V min 09/30/23 Z98.1 - Arthrodesis status Coding Level of Care Code Est Pt Level 3 (27614) Diagnoses S/P lumbar fusion Z98.1
== END 2023-09-30 13:28 | disposition home or self-care (01) ==
PROVIDERS: PCP Registered Nurse; Visit Provider Physician Assistant
DX: Z98.1 Arthrodesis status (principal)
CPT/HCPCS: 99024

== ENCOUNTER 2023-10-15 19:34 | Outpatient (REF) | payer MEDICARE, SELFPAY ==
--- NOTE | ~2023-10-15 | MR_ITS ---
EXAMINATION: MR LUMBAR SPINE WITHOUT CONTRAST CLINICAL INFORMATION: 73-year-old with history of previous L4-L5 and L3-L4 arthrodesis, with new onset of neurological symptoms. Self-reported right lower extremity radicular symptoms. COMPARISON: 09/30/2023 x-rays. TECHNIQUE: MRI of the lumbar spine was obtained using routine sequences without contrast. FINDINGS: CORONAL ALIGNMENT: There is S-shaped scoliotic curvature, slightly convex to the left at L4-L5 and to the right at L1-L2 stable in appearance from previous x-rays. SAGITTAL ALIGNMENT: Mild retrolisthesis at L1-L2 and L2-L3 are similar to the prior x-ray. Otherwise normal lumbosacral alignment. LUMBOSACRAL JUNCTION: Normal. VERTEBRAL BODIES: Vertebral body heights are well maintained in the lumbar spine. There is heco-du-pqonmwny chronic anterior wedging of the T11 vertebral body stable from previous x-ray without significant retropulsion. No acute or nonhealed fractures. HARDWARE: There is ferromagnetic artifact spanning the L3-L4 and L4-L5 levels consistent with previous posterior instrumented hardware fusion construct, with intervertebral disc spacers noted in place at these levels with associated metallic artifact. DISC SPACES AND ENDPLATES: There is moderate disc volume loss asymmetric to the right at L2-L3 with intradiscal loss of T2-weighted signal, central Schmorl's nodes and spondylosis. There is severe disc volume loss at L1-L2 with intradiscal loss of T2-weighted signal, Schmorl's nodes and spondylosis. There are findings of gyymemrv-ud-ijjfir intervertebral disc space height loss at the levels between T12-L1 and T10-T11 inclusive, with intradiscal loss of T2-weighted signal, Schmorl's nodes and spondylosis at these levels. SPINAL CANAL: No abnormal developmental findings. BONE MARROW: There are type I degenerative marrow signal changes seen along the endplates at L1-L2 and T12-L1 with type II marrow signal changes at L1-L2. No suspicious marrow-replacing process or bone marrow edema within the limitations of the exam. There is a subcentimeter focus of signal loss in the left sacral alum, likely reflecting a bone island, which is noted on the previous x-rays of 11/06/2022 unchanged in size. CONUS MEDULLARIS: Terminates at L1. Morphology and signal is normal. INTRADURAL NERVE ROOTS: Crowding of the intradural nerve roots at L2-L3 consistent with spinal stenosis. Otherwise grossly within normal limits. L5-S1: Minor annular bulging. Marked bilateral facet joint arthropathy. No central canal stenosis. Narrowing of the subarticular zones and lateral recesses slightly encroaching on the S1 nerve roots bilaterally. Bnmccjea-wb-bqnluz bilateral neural foraminal stenosis is noted partially obscured by metallic hardware artifact, right more than left with probable encroachment on the exiting L5 nerve roots bilaterally. L4-L5: Status post anterior and posterior fusion at this level and question of chronic post hemilaminotomy changes on the left with ligamentum flavum thickening. There is flattening of the ventral dural sac with mild central canal narrowing and crowding of the subarticular recesses bilaterally. Neural foramina are partially obscured by metallic hardware artifact. There is suspicion for at least moderate bilateral neural foraminal stenosis, with possible encroachment on the exiting L4 nerve roots bilaterally. L3-L4: Status post anterior and posterior fusion at this level with low T2-signal intensity in the ventral epidural space asymmetric to the right with flattening of the ventral dural sac, with moderate right and mild left-sided facet joint arthropathy and ligamentum flavum thickening. There is mild central canal stenosis with some crowding of the intradural nerve roots and there is marked right-sided subarticular recess stenosis. There is nwpy-jq-zrkxbhyu left and sutlysmd-ch-ysvvjv right-sided neural foraminal stenosis with encroachment on the exiting right L3 nerve root. L2-L3: There is mild retrolisthesis with diffuse disc bulging and flattening of the ventral dural sac. Facet joints are partially obscured by metallic hardware artifact but there is moderate bilateral facet joint arthrosis and there is ligamentum flavum thickening with ahvrhoto-fg-lwvxdp central spinal canal stenosis with marked crowding of the intradural nerve roots. There is marked bilateral subarticular recess stenosis likely encroaching on the traversing L3 nerve roots bilaterally. There is moderate left and severe right-sided neural foraminal stenosis with right L2 nerve root impingement with a superimposed right foraminal/extraforaminal disc herniation noted. L1-L2: Retrolisthesis, posterolateral disc osteophyte complex and flattening of the ventral dural sac is noted with mild facet joint arthrosis, left more than right and ligamentum flavum thickening. No significant central canal stenosis. There is mild narrowing of the subarticular zones bilaterally. There is severe left and moderate right-sided neural foraminal stenosis with left L1 nerve root impingement. There is broad-based disc herniation at T12-L1 asymmetric to the left with encroachment on the left subarticular zone and the neural foramen possibly a abutting the exiting left T12 nerve root. PARAVERTEBRAL AND INCLUDED EXTRASPINAL SOFT TISSUES: There is posterior paraspinal and psoas muscle sarcopenia. T2 hyperintensity corresponding to the posterior paraspinal soft tissues at the operative levels likely reflecting denervation atrophy of the posterior paraspinal musculature. Partially imaged bilateral simple-appearing renal cysts, right more than left. Limited evaluation.?No specific follow up recommended based on the current ACR Best Practice Guidelines. MR/MR lumbar spine wo con IMPRESSION: 1. S-shaped scoliotic curvature as described above with mild retrolisthesis at L1-L2 and L2-L3. 2. Status post anterior and posterior fusions at the L3-L4 and L4-L5 levels with ferromagnetic artifact consistent with previous fusion at these levels. There is mild central canal stenosis at L4-L5 and L3-L4 and there is bilateral subarticular recess stenosis at L4-L5 and L3-L4 with probable encroachment on the traversing right L4 nerve root. There is foraminal narrowing bilaterally at the fused levels as detailed above. There is kmvesmtp-dt-albkxo bilateral neural foraminal stenosis at L5-S1 with encroachment on the L5 nerve roots bilaterally. 3. Disc bulging and posterolateral disc osteophyte complex at L2-L3 with facet joint arthrosis and moderate to severe spinal canal stenosis with marked crowding of the intradural nerve roots and marked bilateral subarticular recess stenosis, with moderate left and severe right-sided neural foraminal stenosis with right L2 nerve root impingement and a superimposed right foraminal/extraforaminal disc herniation. At L1-L2, there is disc osteophyte complex and facet joint arthropathy with severe left and moderate right-sided neural foraminal stenosis with left L1 nerve root impingement. 4. Lower thoracic degenerative changes between T10-T11 and T12-L1 inclusive, with broad-based disc herniation asymmetric to the left at T12-L1. 5. Eyyj-nu-zuiiehwv chronic anterior wedging of the T11 vertebral body.
== END 2023-10-15 19:35 | disposition home or self-care (01) ==
LOC: HO.MRI 19:34
PROVIDERS: PCP Registered Nurse; Visit Provider Physician Assistant
DX: Z98.1 Arthrodesis status (principal)
CPT/HCPCS: 72148

== ENCOUNTER 2023-11-27 08:27 | Outpatient (AMB) | payer MEDICARE, SELFPAY ==
--- NOTE | 2023-11-27 08:39 | MHC.OFFVIS ---
Vital Signs 11/27/23 08:40 Height 4 ft 10 in Weight 137 lb BMI 28.6 BP 127/60 Blood Pressure Location Lt brachial Position Sitting Pulse 81 Pulse Source Pulse Oximeter Pulse Oximetry (%) 97 Oxygen Delivery Method Room Air Intake Visit Reasons: Radiculopathy, lumbosacral region Allergies diphenhydramine Adverse Reaction (Mild, Verified 11/27/23 08:41) Agitated meloxicam Adverse Reaction (Mild, Verified 11/27/23 08:41) Vomiting Medication List - Last Reconciled 11/27/23 by Reema Saenz acetaminophen 500 mg PO Q6H PRN atorvastatin 20 mg PO DAILY biotin 5 mg PO DAILY chlorthalidone 25 mg PO DAILY esomeprazole magnesium (Nexium) 20 mg PO DAILY multivitamin 1 tab PO DAILY valacyclovir 1,000 mg PO Q12H HPI Comments Details: Deya Sandoval is a very pleasant 73 year old female who presents to the office today for evaluation and management of her right lower back pain Status post 07/30/23 S/P L3-[address] Powell. Patient reports after surgery she developed right lower back pain with radiation down the right leg to the foot. Most bothersome is some numbness and burning pain of the right thigh with feeling of muscle spasms, tightness of the right thigh She was evaluated by Orthopedics and ruled out for hip or knee contributing factors. Endorses some cooling sensation and feeling of cool to the touch of the bottom of right foot when compared to left. She had ultrasound to rule out DVT which was negative. She is awaiting a secondary vascular study. This is scheduled for next month. Patient follow-up with neuro spine and was referred here for consideration of right L4 diagnostic nerve block. Recent MRI was reviewed, results as per below. Patient has exhausted conservative therapy including PT, home exercise program, ywbs-bfg-nmzvqda medications, nonsteroidal anti inflammatory medications all without improvement of her pain. Denies red flag symptoms including new loss of bowel, bladder or saddle anesthesia. Patient has not attempted chiropractor, acupuncture, massage or previous attempts at injections. Pain today is rated as a 4/10, constant and worse in the night. Pain is improved with cold application, topical medications and oral medications. In terms of muscle damage condition is described as dull, sore, hurting, aching, heavy, tugging, pulling, hot, burning Pain is negatively impacting patient's sleep, recreational activities and ability to perform activities of daily living. Denies implantable devices, pacemaker or defibrillator Denies current use of tobacco or nicotine. Quit 30 years ago Denies current use of alcohol Denies current use of recreational substances. Endorses 2 cups of coffee per day. Past medical history significant for hypertension, heart palpitations, asthma and arthritis. FOR[facility]LY [facility], LATER [facility] Medical History HTN (hypertension) History of endometrial biopsy Hemorrhage of rectum and anus Concussion Impaired fasting glucose Palpitations History of headache Fibromyositis Lumbar radiculopathy Back pain Degenerative, intervertebral disc, cervical Shoulder joint pain Osteoarthritis of knee UTI (urinary tract infection) Irritable bowel syndrome COPD (chronic obstructive pulmonary disease) Hyperlipidemia Vitamin D deficiency Herpes simplex Surgical History Hx of cataract surgery History of conization of cervix H/O colonoscopy History of total right knee replacement History of esophagogastroduodenoscopy (EGD) H/O excision of lamina of cervical vertebra for decompression of spinal cord Hx of appendectomy Hx of tonsillectomy History of abdominoplasty Hx of carpal tunnel repair Hx of breast biopsy Hx of tubal ligation Social History Household Members: None Housing: Condominium Patient Tobacco Use Status: Former Tobacco user Tobacco use type: Cigarette Years Smoked: 10 service: No Review of Systems Const All systems reviewed & are unremarkable except as noted in HPI and below Physical Exam Vital Signs: Last Vital Signs Pulse 81 11/27/23 08:40 BP 127/60 11/27/23 08:40 Pulse Ox 97 11/27/23 08:40 Oxygen Delivery Method Room Air 11/27/23 08:40 BMI result Body Mass Index 28.6 General: awake, alert, oriented. Answers questions appropriately. Fully engaged in examination. Skin: warm, dry, intact HEENT: Normocephalic. Hearing intact. Cardiac: External chest normal in appearance. Respiratory: No cough, audible wheezing or stridor. Abdomen: without gross distension. MS: No obvious swelling or deformities. Able to stand on bilateral tiptoes and bilateral heels.? Able to transition from sit to stand unassisted. Ambulates with bilaterally normal heel strike and toe off BLE strength 5/5 2+ right patellar and ankle reflexes SLR neg bilaterally Nicho neg Nontender over bilateral PSIS Right foot cooler to touch on the palmar aspect compared to left foot No pain with internal/external rotation right hip Neurological: Oriented to person, place, time and situation. Thought process intact. No gait abnormalities appreciated. Psychiatric: Appropriate mood and affect. Good judgment and insight. Results Reviewed Results Reviewed: 10/2023 MR/MR lumbar spine wo con FINDINGS: CORONAL ALIGNMENT: There is S-shaped scoliotic curvature, slightly convex to the left at L4-L5 and to the right at L1-L2 stable in appearance from previous x-rays. SAGITTAL ALIGNMENT: Mild retrolisthesis at L1-L2 and L2-L3 are similar to the prior x-ray. Otherwise normal lumbosacral alignment. LUMBOSACRAL JUNCTION: Normal. VERTEBRAL BODIES: Vertebral body heights are well maintained in the lumbar spine. There is [id number]-fh-[id number] chronic anterior wedging of the T11 vertebral body stable from previous x-ray without significant retropulsion. No acute or nonhealed fractures. HARDWARE: There is ferromagnetic artifact spanning the L3-L4 and L4-L5 levels consistent with previous posterior instrumented hardware fusion construct, with intervertebral disc spacers noted in place at these levels with associated metallic artifact. DISC SPACES AND ENDPLATES: There is moderate disc volume loss asymmetric to the right at L2-L3 with intradiscal loss of T2-weighted signal, central Schmorl's nodes and spondylosis. There is severe disc volume loss at L1-L2 with intradiscal loss of T2-weighted signal, Schmorl's nodes and spondylosis. There are findings of puywdxnc-ty-iayfnd intervertebral disc space height loss at the levels between T12-L1 and T10-T11 inclusive, with intradiscal loss of T2-weighted signal, Schmorl's nodes and spondylosis at these levels. SPINAL CANAL: No abnormal developmental findings. BONE MARROW: There are type I degenerative marrow signal changes seen along the endplates at L1-L2 and T12-L1 with type II marrow signal changes at L1-L2. No suspicious marrow-replacing process or bone marrow edema within the limitations of the exam. There is a subcentimeter focus of signal loss in the left sacral alum, likely reflecting a bone island, which is noted on the previous x-rays of 11/06/2022 unchanged in size. CONUS MEDULLARIS: Terminates at L1. Morphology and signal is normal. INTRADURAL NERVE ROOTS: Crowding of the intradural nerve roots at L2-L3 consistent with spinal stenosis. Otherwise grossly within normal limits. L5-S1: Minor annular bulging. Marked bilateral facet joint arthropathy. No central canal stenosis. Narrowing of the subarticular zones and lateral recesses slightly encroaching on the S1 nerve roots bilaterally. Vqtjgnqi-nw-lqpgpq bilateral neural foraminal stenosis is noted partially obscured by metallic hardware artifact, right more than left with probable encroachment on the exiting L5 nerve roots bilaterally. L4-L5: Status post anterior and posterior fusion at this level and question of chronic post hemilaminotomy changes on the left with ligamentum flavum thickening. There is flattening of the ventral dural sac with mild central canal narrowing and crowding of the subarticular recesses bilaterally. Neural foramina are partially obscured by metallic hardware artifact. There is suspicion for at least moderate bilateral neural foraminal stenosis, with possible encroachment on the exiting L4 nerve roots bilaterally. L3-L4: Status post anterior and posterior fusion at this level with low T2-signal intensity in the ventral epidural space asymmetric to the right with flattening of the ventral dural sac, with moderate right and mild left-sided facet joint arthropathy and ligamentum flavum thickening. There is mild central canal stenosis with some crowding of the intradural nerve roots and there is marked right-sided subarticular recess stenosis. There is cbxu-[id number] left and fjymkuha-in-sybntc right-sided neural foraminal stenosis with encroachment on the exiting right L3 nerve root. L2-L3: There is mild retrolisthesis with diffuse disc bulging and flattening of the ventral dural sac. Facet joints are partially obscured by metallic hardware artifact but there is moderate bilateral facet joint arthrosis and there is ligamentum flavum thickening with ypyrqxpc-cu-aphbxl central spinal canal stenosis with marked crowding of the intradural nerve roots. There is marked bilateral subarticular recess stenosis likely encroaching on the traversing L3 nerve roots bilaterally. There is moderate left and severe right-sided neural foraminal stenosis with right L2 nerve root impingement with a superimposed right foraminal/extraforaminal disc herniation noted. L1-L2: Retrolisthesis, posterolateral disc osteophyte complex and flattening of the ventral dural sac is noted with mild facet joint arthrosis, left more than right and ligamentum flavum thickening. No significant central canal stenosis. There is mild narrowing of the subarticular zones bilaterally. There is severe left and moderate right-sided neural foraminal stenosis with left L1 nerve root impingement. There is broad-based disc herniation at T12-L1 asymmetric to the left with encroachment on the left subarticular zone and the neural foramen possibly a abutting the exiting left T12 nerve root. PARAVERTEBRAL AND INCLUDED EXTRASPINAL SOFT TISSUES: There is posterior paraspinal and psoas muscle sarcopenia. T2 hyperintensity corresponding to the posterior paraspinal soft tissues at the operative levels likely reflecting denervation atrophy of the posterior paraspinal musculature. Partially imaged bilateral simple-appearing renal cysts, right more than left. Limited evaluation.?No specific follow up recommended based on the current ACR Best Practice Guidelines. IMPRESSION: 1. S-shaped scoliotic curvature as described above with mild retrolisthesis at L1-L2 and L2-L3. 2. Status post anterior and posterior fusions at the L3-L4 and L4-L5 levels with ferromagnetic artifact consistent with previous fusion at these levels. There is mild central canal stenosis at L4-L5 and L3-L4 and there is bilateral subarticular recess stenosis at L4-L5 and L3-L4 with probable encroachment on the traversing right L4 nerve root. There is foraminal narrowing bilaterally at the fused levels as detailed above. There is zgjshjmq-[id number] bilateral neural foraminal stenosis at L5-S1 with encroachment on the L5 nerve roots bilaterally. 3. Disc bulging and posterolateral disc osteophyte complex at L2-L3 with facet joint arthrosis and moderate to severe spinal canal stenosis with marked crowding of the intradural nerve roots and marked bilateral subarticular recess stenosis, with moderate left and severe right-sided neural foraminal stenosis with right L2 nerve root impingement and a superimposed right foraminal/extraforaminal disc herniation. At L1-L2, there is disc osteophyte complex and facet joint arthropathy with severe left and moderate right-sided neural foraminal stenosis with left L1 nerve root impingement. 4. Lower thoracic degenerative changes between T10-T11 and T12-L1 inclusive, with broad-based disc herniation asymmetric to the left at T12-L1. 5. Szwj-ch-vltztuyg chronic anterior wedging of the T11 vertebral body. Assessment & Plan Assessment & Plan (1) Lumbosacral radiculopathy at L4: Code(s): M54.17 - Radiculopathy, lumbosacral region Category: Medical (2) S/P lumbar fusion: Code(s): Z98.1 - Arthrodesis status Category: Surgical (3) Lumbar stenosis with neurogenic claudication: Code(s): M48.062 - Spinal stenosis, lumbar region with neurogenic claudication Category: Medical (4) Scoliosis of lumbar region due to degenerative disease of spine in adult: Code(s): M41.56 - Other secondary scoliosis, lumbar region Category: Medical (5) Spondylolisthesis, lumbar region: Code(s): M43.16 - Spondylolisthesis, lumbar region Category: Medical (6) Post laminectomy syndrome: Code(s): M96.1 - Postlaminectomy syndrome, not elsewhere classified Category: Medical Plan Deya is a very pleasant 73-year-old female who presented to the office today for evaluation management of her right lower back pain History, physical exam and provocative testing consistent with lumbar radiculopathy and post laminectomy syndrome Patient has exhausted conservative therapy including NSAIDs, Tylenol, physical therapy and home exercise program Discussed at length patient is diagnosis and treatment options. Recent visit notes with neuro spine were reviewed. They are requesting right L4 nerve block for diagnostic purposes. This was discussed at length with the patient. Will schedule for fluoroscopy guided right L4 transforaminal epidural steroid injection with local anesthetic. All questions and concerns were answered, patient agrees with the plan. Follow up after injection, sooner if needed Coding Level of Care Code New Pt Level 4 (52400) Diagnoses Lumbosacral radiculopathy at L4 M54.17 S/P lumbar fusion Z98.1 Lumbar stenosis with neurogenic claudication M48.062 Scoliosis of lumbar region due to degenerative disease of spine in adult M41.56 Spondylolisthesis, lumbar region M43.16 Post laminectomy syndrome M96.1
[2023-11-27 08:40] VITALS: BP 127/60; PULSE 81; O2SAT 97; BMI 28.6
== END 2023-11-27 09:32 | disposition home or self-care (01) ==
PROVIDERS: PCP Registered Nurse; Visit Provider Registered Nurse Emergency
DX: M47.816 Spondylosis without myelopathy or radiculopathy, lumbar region (principal); M17.0 Bilateral primary osteoarthritis of knee; G89.4 Chronic pain syndrome; M51.36 Other intervertebral disc degeneration, lumbar region; M70.62 Trochanteric bursitis, left hip
CPT/HCPCS: 99204; 99214

== ENCOUNTER → 2023-11-27 08:27 | Outpatient (BNVA) | payer MEDICARE, SELFPAY | PROVIDERS: PCP Registered Nurse; Visit Provider Registered Nurse Emergency | DX: M54.17 Radiculopathy, lumbosacral region (principal); M48.062 Spinal stenosis, lumbar region with neurogenic claudication; M41.56 Other secondary scoliosis, lumbar region; M43.16 Spondylolisthesis, lumbar region; M96.1 Postlaminectomy syndrome, not elsewhere classified; Z98.1 Arthrodesis status | CPT/HCPCS: 99202; 99212 ==

== ENCOUNTER 2024-01-27 06:05 | Outpatient (REF) | payer MEDICARE, SELFPAY | END 2024-01-27 06:06 | disposition home or self-care (01) | LOC: CF 06:05 | PROVIDERS: Visit Provider Anesthesiology | DX: M54.17 Radiculopathy, lumbosacral region (principal); M48.062 Spinal stenosis, lumbar region with neurogenic claudication; M41.56 Other secondary scoliosis, lumbar region; M43.16 Spondylolisthesis, lumbar region; M96.1 Postlaminectomy syndrome, not elsewhere classified; M46.1 Sacroiliitis, not elsewhere classified; M53.3 Sacrococcygeal disorders, not elsewhere classified; Z98.1 Arthrodesis status; Z53.09 Procedure and treatment not carried out because of other contraindication | CPT/HCPCS: 99212; J2003; J3301; Q9967 ==

== ENCOUNTER 2024-01-27 08:35 | Outpatient (AMB) | payer MEDICARE, SELFPAY ==
--- NOTE | 2024-01-27 08:36 | MHC.OFFVIS ---
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 Her pain level today is 5/10. She reports pain is constant and worse at night. Status post 07/30/23 S/P L3-[address] Powell.after surgery she developed right lower back pain with radiation down the right leg to the foot radiating to the anterior thigh and lateral thigh to the level of the knee but not below that level. She denies pain radiation to the lower leg ankle foot or toes. Pain is corresponding to sensation of numbness and burning in the right thigh and she reported weakness of the muscles in the right thigh but not muscles of the lower leg foot or toes. She has a history of total knee replacement on the right, she was seen by Orthopedics and the complications coming from total knee replacement were ruled out. She was evaluated by Orthopedics and ruled out for hip or knee contributing factors. She was sent by surgery here to perform diagnostic L4 transforaminal epidural steroid injection. I discussed the situation with the patient. She was offered to have diagnostic transforaminal L4 epidural steroid injection however I told her that technically because of the hardware in her back it would be very difficult to perform. At the same time I examined the patient and results of my examination dictated as below. I believe that sacroiliac joint might play a significant role in this patient's condition. I told her that I feel that that will be better if we will perform diagnostic right sacroiliac joint injection before subjective her to more technically difficult injection which also carries the risk of more severe complications. Deya exhausted conservative therapy including PT, home exercise program, zlnp-yyp-whbleqp medications, nonsteroidal anti inflammatory medications all without improvement of her pain. Denies red flag symptoms including new loss of bowel, bladder or saddle anesthesia. Patient has not attempted chiropractor, acupuncture, massage or previous attempts at injections. Pain is improved with cold application, topical medications and oral medications. [facility] Medical History HTN (hypertension) History of endometrial biopsy Hemorrhage of rectum and anus Concussion Impaired fasting glucose Palpitations History of headache Fibromyositis Lumbar radiculopathy Back pain Degenerative, intervertebral disc, cervical Shoulder joint pain Osteoarthritis of knee UTI (urinary tract infection) Irritable bowel syndrome COPD (chronic obstructive pulmonary disease) Hyperlipidemia Vitamin D deficiency Herpes simplex Surgical History Hx of cataract surgery History of conization of cervix H/O colonoscopy History of total right knee replacement History of esophagogastroduodenoscopy (EGD) H/O excision of lamina of cervical vertebra for decompression of spinal cord Hx of appendectomy Hx of tonsillectomy History of abdominoplasty Hx of carpal tunnel repair Hx of breast biopsy Hx of tubal ligation Social History Household Members: None Housing: Condominium Patient Tobacco Use Status: Former Tobacco user Tobacco use type: Cigarette Years Smoked: 10 service: No Review of Systems Const All systems reviewed & are unremarkable except as noted in HPI and below ENT Reports Normal hearing present Neuro Reports Normal hearing present, Denies Abnormal speech present and Denies Sensory deficit (Neuro) Physical Exam Vital Signs: Last Vital Signs Pulse 78 01/27/24 08:41 Resp 14 01/27/24 08:41 BP 133/100 H 01/27/24 08:41 Pulse Ox 98 01/27/24 08:41 Oxygen Delivery Method Room Air 01/27/24 08:41 BMI result Body Mass Index 28.6 Const General: no acute distress Nutritional Appearance: average body habitus and well nourished Orientation/consciousness: patient oriented x3 Limitations: no limitations Eyes General: appearance normal, both eyes and all related structures Pupils: Equal, round and reactive pupils present EOM: EOMs intact bilaterally Neck Neck: Yes full ROM Chest Chest palpation & inspection: normal inspection of the chest Resp Effort & Inspection: normal respiratory effort, able to speak in complete sentences, normal respiratory pattern, no audible wheezes and no cough Cardio Jugular venous distension: no JVD GI Inspection: Yes normal to inspection Back/Spine/Pelvis Other: Able to stand on bilateral tiptoes in bilateral heels without difficulty. That demonstrates normal L4 and S1 motor innervation. Able to flex herself forward but mostly on the account of the hips. There are very well healed scars on the posterior surface of the patient's back. Mikhail test is positive on the right. Pelvic distraction test is positive on the right. Pelvic compression test is positive on the right. Fourteen finger test is positive on the right. SLR is negative on the right as well as on the left. There is no hyperreflexia at bilateral patellar reflexes. Neuro General: patient oriented x3 and gait normal Cranial nerves: Yes CN's II-XII intact bilaterally, Yes Equal, round and reactive pupils present, Yes Normal hearing present and Yes Ability to bilaterally elevate shoulders present Speech: No Abnormal speech present Gait exam (Neuro): Normal gait present Motor exam (neuro): 5/5 motor strength present throughout Sensory Exam: No Sensory deficit (Neuro) Extrem General: No pedal edema Psych Speech and movement: Normal speech and movement present Affect: normal affect Attitude: cooperative Thought process: Normal thought process present Thought content: Normal thought content present Insight: Good insight present (Psych) Judgement: Good judgement present (Psych) Results Reviewed Results Reviewed: 10/2023 MR/MR lumbar spine wo con FINDINGS: CORONAL ALIGNMENT: There is S-shaped scoliotic curvature, slightly convex to the left at L4-L5 and to the right at L1-L2 stable in appearance from previous x-rays. SAGITTAL ALIGNMENT: Mild retrolisthesis at L1-L2 and L2-L3 are similar to the prior x-ray. Otherwise normal lumbosacral alignment. LUMBOSACRAL JUNCTION: Normal. VERTEBRAL BODIES: Vertebral body heights are well maintained in the lumbar spine. There is hopr-hi-pzvcnora chronic anterior wedging of the T11 vertebral body stable from previous x-ray without significant retropulsion. No acute or nonhealed fractures. HARDWARE: There is ferromagnetic artifact spanning the L3-L4 and L4-L5 levels consistent with previous posterior instrumented hardware fusion construct, with intervertebral disc spacers noted in place at these levels with associated metallic artifact. DISC SPACES AND ENDPLATES: There is moderate disc volume loss asymmetric to the right at L2-L3 with intradiscal loss of T2-weighted signal, central Schmorl's nodes and spondylosis. There is severe disc volume loss at L1-L2 with intradiscal loss of T2-weighted signal, Schmorl's nodes and spondylosis. There are findings of sovwxiqq-qe-kwxnvw intervertebral disc space height loss at the levels between T12-L1 and T10-T11 inclusive, with intradiscal loss of T2-weighted signal, Schmorl's nodes and spondylosis at these levels. SPINAL CANAL: No abnormal developmental findings. BONE MARROW: There are type I degenerative marrow signal changes seen along the endplates at L1-L2 and T12-L1 with type II marrow signal changes at L1-L2. No suspicious marrow-replacing process or bone marrow edema within the limitations of the exam. There is a subcentimeter focus of signal loss in the left sacral alum, likely reflecting a bone island, which is noted on the previous x-rays of 11/06/2022 unchanged in size. CONUS MEDULLARIS: Terminates at L1. Morphology and signal is normal. INTRADURAL NERVE ROOTS: Crowding of the intradural nerve roots at L2-L3 consistent with spinal stenosis. Otherwise grossly within normal limits. L5-S1: Minor annular bulging. Marked bilateral facet joint arthropathy. No central canal stenosis. Narrowing of the subarticular zones and lateral recesses slightly encroaching on the S1 nerve roots bilaterally. Wsfexcsi-uo-yjgsii bilateral neural foraminal stenosis is noted partially obscured by metallic hardware artifact, right more than left with probable encroachment on the exiting L5 nerve roots bilaterally. L4-L5: Status post anterior and posterior fusion at this level and question of chronic post hemilaminotomy changes on the left with ligamentum flavum thickening. There is flattening of the ventral dural sac with mild central canal narrowing and crowding of the subarticular recesses bilaterally. Neural foramina are partially obscured by metallic hardware artifact. There is suspicion for at least moderate bilateral neural foraminal stenosis, with possible encroachment on the exiting L4 nerve roots bilaterally. L3-L4: Status post anterior and posterior fusion at this level with low T2-signal intensity in the ventral epidural space asymmetric to the right with flattening of the ventral dural sac, with moderate right and mild left-sided facet joint arthropathy and ligamentum flavum thickening. There is mild central canal stenosis with some crowding of the intradural nerve roots and there is marked right-sided subarticular recess stenosis. There is enoy-wj-dvhdegoo left and mugkivrk-mo-jbnagw right-sided neural foraminal stenosis with encroachment on the exiting right L3 nerve root. L2-L3: There is mild retrolisthesis with diffuse disc bulging and flattening of the ventral dural sac. Facet joints are partially obscured by metallic hardware artifact but there is moderate bilateral facet joint arthrosis and there is ligamentum flavum thickening with abbrxdpq-aq-wujjbb central spinal canal stenosis with marked crowding of the intradural nerve roots. There is marked bilateral subarticular recess stenosis likely encroaching on the traversing L3 nerve roots bilaterally. There is moderate left and severe right-sided neural foraminal stenosis with right L2 nerve root impingement with a superimposed right foraminal/extraforaminal disc herniation noted. L1-L2: Retrolisthesis, posterolateral disc osteophyte complex and flattening of the ventral dural sac is noted with mild facet joint arthrosis, left more than right and ligamentum flavum thickening. No significant central canal stenosis. There is mild narrowing of the subarticular zones bilaterally. There is severe left and moderate right-sided neural foraminal stenosis with left L1 nerve root impingement. There is broad-based disc herniation at T12-L1 asymmetric to the left with encroachment on the left subarticular zone and the neural foramen possibly a abutting the exiting left T12 nerve root. PARAVERTEBRAL AND INCLUDED EXTRASPINAL SOFT TISSUES: There is posterior paraspinal and psoas muscle sarcopenia. T2 hyperintensity corresponding to the posterior paraspinal soft tissues at the operative levels likely reflecting denervation atrophy of the posterior paraspinal musculature. Partially imaged bilateral simple-appearing renal cysts, right more than left. Limited evaluation.?No specific follow up recommended based on the current ACR Best Practice Guidelines. IMPRESSION: 1. S-shaped scoliotic curvature as described above with mild retrolisthesis at L1-L2 and L2-L3. 2. Status post anterior and posterior fusions at the L3-L4 and L4-L5 levels with ferromagnetic artifact consistent with previous fusion at these levels. There is mild central canal stenosis at L4-L5 and L3-L4 and there is bilateral subarticular recess stenosis at L4-L5 and L3-L4 with probable encroachment on the traversing right L4 nerve root. There is foraminal narrowing bilaterally at the fused levels as detailed above. There is bktgkxsz-hh-nfogwd bilateral neural foraminal stenosis at L5-S1 with encroachment on the L5 nerve roots bilaterally. 3. Disc bulging and posterolateral disc osteophyte complex at L2-L3 with facet joint arthrosis and moderate to severe spinal canal stenosis with marked crowding of the intradural nerve roots and marked bilateral subarticular recess stenosis, with moderate left and severe right-sided neural foraminal stenosis with right L2 nerve root impingement and a superimposed right foraminal/extraforaminal disc herniation. At L1-L2, there is disc osteophyte complex and facet joint arthropathy with severe left and moderate right-sided neural foraminal stenosis with left L1 nerve root impingement. 4. Lower thoracic degenerative changes between T10-T11 and T12-L1 inclusive, with broad-based disc herniation asymmetric to the left at T12-L1. 5. Cyhj-ob-hwspjdyo chronic anterior wedging of the T11 vertebral body. Assessment & Plan Assessment & Plan (1) Lumbosacral radiculopathy at L4: Code(s): M54.17 - Radiculopathy, lumbosacral region Category: Medical (2) S/P lumbar fusion: Code(s): Z98.1 - Arthrodesis status Category: Surgical (3) Lumbar stenosis with neurogenic claudication: Code(s): M48.062 - Spinal stenosis, lumbar region with neurogenic claudication Category: Medical (4) Scoliosis of lumbar region due to degenerative disease of spine in adult: Code(s): M41.56 - Other secondary scoliosis, lumbar region Category: Medical (5) Spondylolisthesis, lumbar region: Code(s): M43.16 - Spondylolisthesis, lumbar region Category: Medical (6) Post laminectomy syndrome: Code(s): M96.1 - Postlaminectomy syndrome, not elsewhere classified Category: Medical (7) Sacroiliitis: Code(s): M46.1 - Sacroiliitis, not elsewhere classified Category: Medical (8) Sacroiliac joint dysfunction of right side: Code(s): M53.3 - Sacrococcygeal disorders, not elsewhere classified Category: Medical Plan After conversation and examination of this patient today I was left under impression that she is suffering among other things were from sacroiliitis. Her requested by Neurosurgery procedure of transforaminal epidural L4-5 steroid injection can not be technically difficult and prone more to complications compare to the procedure which would performed on the [place] [facility]. At the same time considering that at least partially her pain could be stemming out of the sacroiliitis sacroiliac joint dysfunction on the right I would like to schedule her for diagnostic sacroiliac joint injection 1st to see if maybe her pain will be eliminated by sacroiliac joint injection before I will attend transforaminal epidural steroid injection L4-5. Orders: Orders FL guidance in treatment room Today M54.17 - Radiculopathy, lumbosacral region Patient Instructions: I here by testify that I spent 32 minutes in conversation with this patient as well as evaluating her prior records and prior diagnostic studies as well as planning her care and organizing this note. Coding Level of Care Code Est Pt Level 4 (40810) Diagnoses Lumbosacral radiculopathy at L4 M54.17 S/P lumbar fusion Z98.1 Lumbar stenosis with neurogenic claudication M48.062 Scoliosis of lumbar region due to degenerative disease of spine in adult M41.56 Spondylolisthesis, lumbar region M43.16 Post laminectomy syndrome M96.1 Sacroiliitis M46.1 Sacroiliac joint dysfunction of right side M53.3
--- OUTSIDE RECORDS SUMMARY | 2024-01-27 08:38 | XMS_ITS | Continuity of Care Document ---
Author Organization [facility] [place] [address] [facility] [place] [address]- Care Team Providers Care Adzing And Boring Machine Feeder Name Role Phone Reece Villeda Primary Care Physician Encounter 09/23/23 - 09/30/23 [facility] [address], [address] [place] [address]- Attending Physician: Rashaad Araiza MD Admitting Physician: Rashaad Araiza MD Referring Physician: Rashaad Araiza MD Allergies, Adverse Reactions, Alerts No Known [...] Refills, Maintenance, 06/03/22 17:52:00 EST, Solution, [id number], J45. 0, 147, cm, 06/03/22 14:49:00 EST, Height, 62.2, kg, 11/13/21 15:28:00 EDT, Dry Weight Start Date: 06/03/22 Status: Ordered budesonide 0.5 mg/2 mL inhalation suspension 0.5 mg, 2, mL, Neb, 2 times a day, # 120 mL, Refills 5, Tot. Refills 5, Maintenance, 06/03/22 17:52:00 EST, Suspension, Route to Pharmacy Electronically, [id number], [id number], J45. 0, 147, cm, 06/03/22 14:49:00 [...] Refills, Maintenance, 10/14/22 15:45:00 EDT, EC Capsule, [facility]/pharm[facility] #[id number], Partial fill upon george... Start Date: 10/14/22 Stop Date: 11/13/22 Status: Ordered oxyCODONE 5 mg oral tablet 5 mg, 1, tablet, By Mouth, Every 4 hours, PRN, # 42 tablet, Refills 0, Tot. Refills 0, Maintenance,as needed for pain, 06/19/22 16:30:00 EDT, Route to Pharmacy Electronically, [facility], Partial fill upon patient request [...] capsule, 0 Refills, Maintenance, 07/16/22 16:34:00 EDT, [facility]/pharmacy #[id number], Partial [...] 06/19/22 16:30:00 EDT, Route to Pharmacy Electronically, [facility], Partial fill upon patient [...] Exam Date Time Procedure Performing Provider Status 09/23/23 3:58 PM US Doppler Ext Lower Venous Right Andressa Prescott; Judi (Verified) Notes: (US Doppler Ext Lower Venous Right) Reason For Exam: R79.1 ABNL COAG RESULT: US Doppler Ext Lower Venous Right US Doppler Ext Lower Venous Right Reason: R79.1 ABNL COAG; Clinical Question(s): Other: COMPARISON: None. IMAGING TECHNIQUE: Ultrasound of the veins from the groin through the calf was performed using grayscale, color, and spectral Doppler ultrasound assessing for complete compressibility and normal flowcharacteristics. FINDINGS: Common femoral vein: Patent. No thrombosis. Femoral vein: Patent. No thrombosis. Popliteal vein: Patent. No thrombosis. Gastrocnemius veins: The visualized portions are patent without evidence of thrombosis. Peroneal veins: The visualized portions are patent without evidence of thrombosis. Posterior tibial veins: The visualized portions are patent without evidence of thrombosis. Contralateral common femoral vein: Patent. No thrombosis. OTHER FINDINGS: None. IMPRESSION: No evidence of deep venous thrombosis. WSN: [id number] Ordering Physician: Rashaad Araiza Dictated By: Medina Cerda MD Dictated Date/Time: 09/23/23 4:02 pm Reviewed By: Medina Cerda MD Signed By: Medina Cerda MD Signed Date/Time: 09/23/23 4:02 pm Transcribed By: VAMSI Transcribed Date/Time: 09/23/23 4:01 pm Social History Social History Type Response Smoking Status Former smoker; Tob[employer] user in household: No; Other: pt states she quit smoking 30 years ago; entered on: 08/28/15 Sex Patient Care team information Care Team Personnel Name: Amanda Thurman RN Position: S RN Member Role: Primary Care Nurse Name: Reece Villeda Position: Reference Physician Member Role: PCP Address: Address: [address] [place] [address], [address] [place] [address]- Care Team Related Persons Name: FER PURVIS Address: home [address] [place] [id number] Name: MARY DYSON Name: DALLAS DYSON Name: SHEA DYSON Address: home [address] [place] [id number]
--- OUTSIDE RECORDS SUMMARY | 2024-01-27 08:38 | XMS_ITS | Continuity of Care Document ---
Author Organization [facility] Address [address] [place] [address]- Care Team Providers Care Counselor Manager Name Role Phone Reece Villeda Primary Care Physician [phone] [id number]s): 10/[facility]23 - 10/13/23 [facility] [address] [place] [address]- Attending Physician: Alecia Reyes MD Admitting Physician: Alecia Reyes MD Referring Physician: Reece Villeda Allergies, Adverse Reactions, Alerts No Known Allergies Medications Albuterol (Eqv-Ventolin HFA) 90 mcg/inh inhalation aerosol 2 puffs, Inhalation, Every 6 hours, PRN Wheezing/Shortness of Breath, # 18 Gm, 6 Refills, Maintenance, 04/17/23 10:07:00 EST, [facility]/pharmacy #[id number], Partial fill upon patient request if [...] 5 Refills, Maintenance, 06/03/22 17:52:00 EST, Solution, [facility]/pharmacy #2339, J45. 0, 147, cm, 06/03/22 14:49:00 EST, Height, 62.2, kg, 11/13/21 15:28:00 EDT, Dry Weight Start Date: 06/03/22 Status: Ordered budesonide 0.5 mg/2 mL inhalation suspension 0.5 mg, 2, mL, Neb, 2 times a day, # 120 mL, Refills 5, Tot. Refills 5, Maintenance, 06/03/22 17:52:00 EST, Suspension, Route to Pharmacy Electronically, [id number], [facility]/pharmacy #2339, J45. 0, 147, cm, 06/03/22 14:49:00 EST,... Start Date: 06/03/22 Stop Date: 11/30/22 Status: Ordered chlorthalidone 25 mg oral tablet 25 mg, 1, tablet, By Mouth, Daily, # 30 tablet, Refills 0, Maintenance, 11/16/21 15:28:00 EDT, Partial fill upon patient request if the prescription is for a schedule II opioid drug. Start Date: 11/16/21 Status: Ordered esomeprazole 40 mg oral enteric coated capsule 0 Refills, Maintenance, 10/06/23 16:15:00 EDT, Partial fill upon patient request if the prescription is for a schedule II opioid drug. Start Date: 10/06/23 Status: Ordered Juxtafit Knee-high Compression Garments(bilateral, left, right) with 2 pairs of liners Juxtafit Knee-high Compression Garments(bilateral, left, right) with 2 pairs of liners, See Instructions, # 1 kit, Refills 0, Tot. Refills 0, Maintenance, as directed, 10/10/23 10:18:00 EDT, Supply, 147, cm, 10/06/23 16:15:00 EDT, Height, 62, kg, 10/05... Start Date: 10/10/23 Status: Ordered Misc Rx Refills 0, Maintenance, [...] Refills, Maintenance, 10/14/22 15:45:00 EDT, EC Capsule, [facility]/pharmacy #[id number], Partial fill upon george... Start Date: 10/14/22 Stop Date: 11/13/22 Status: Ordered oxyCODONE 5 mg oral tablet 5 mg, 1, tablet, By Mouth, Every 4 hours, PRN, # 42 tablet, Refills 0, Tot. Refills 0, Maintenance,as needed for pain, 06/19/22 16:30:00 EDT, Route to Pharmacy Electronically, [facility], Partial fill upon patient request if the [...] capsule, 0 Refills, Maintenance, 07/16/22 16:34:00 EDT, [facility]/pharmacy #[id number], Partial fill upon patient request if the prescription is for a schedule II opioid drug., 147.3, cm, 07/16/22 13:30:00 EDT, H... Start Date: 07/16/22 Stop Date: 08/15/22 Status: Ordered tiZANidine 4 mg oral tablet 4 mg, 1, tablet, By Mouth, 3 times a day, PRN, # 90 tablet, Refills 0, Tot. Refills 0, Maintenance,Spasm, 06/19/22 16:30:00 EDT, Route to Pharmacy Electronically, [facility], Partial fill upon patient [...] oldest [Reference Range]: 1 Height 147 cm (10/06/23 4:15 PM) Weight 62.14 kg (10/06/23 4:15 PM) Oxygen Saturation [94-100 %] 97 % (10/06/23 4:15 PM) Pulse Rate [55-90 bpm] 81 bpm (10/06/23 4:15 PM) Body Mass Index [18.5-24.99 kg/m2] 28.76 kg/m2 *H* (10/06/23 4:15 PM) Blood Pressure [90-138/55-84 mm Hg] 122/ 60mm Hg (10/06/23 4:15 PM) Blood pressure sites Arm, left (10/06/23 4:15 PM) Weight Obtained Via Patient/family state d (10/06/23 4:15 PM) Social History Social History Type Response Smoking Status Former smoker; Tobac co user in household: No; Other: pt states she quit smoking 30 years ago; entered on: 08/28/15 Sex Patient Care team information Care Team Personnel Name: Amanda Thurman RN Position: Brigid RN Member Role: Primary Care Nurse Name: Reece Villeda Position: Reference Physician Member Role: PCP Address: Address: [address] [place] [address], [address] [place] [phone]- Care Team Related Persons Name: FER PURVIS Address: home [address] [facility] [address] [place] [address] Name: MARY DYSON Name: DALLAS DYSON Name: SHEA DYSON Address: home [address] [place] [address]
--- OUTSIDE RECORDS SUMMARY | 2024-01-27 08:38 | XMS_ITS | Continuity of Care Document ---
Author Organization [facility] Address [address] [place] [address]- Care Team Providers Care Recruiting Administrator Name Role Phone Reeec Villeda Primary Care Physician Encounter [facility] Date(s): 12/23/23 - 01/22/24 [facility] [address] [place], [place] [address] Attending Physician: Christie Rai Admitting Physician: Christie [...] Dry Weight Start Date: 06/03/22 Status: Ordered chlorthalidone 25 mg oral tablet [...] Refills, Maintenance Start Date: 04/10/10 Status: Ordered vidiscal vidiscal, Refills 0, Maintenance, [...] Reference Physician Member Role: PCP Address: Address: [address] [place] [address], [address] [place] [address]- Care Team Related Persons Name: FER PURVIS Address: home [address] [place] [address] Name: MARY DYSON Name: DALLAS DYSON Name: SHEA DYSON Address: home [address] [place] [address]
--- OUTSIDE RECORDS SUMMARY | 2024-01-27 08:38 | XMS_ITS | Continuity of Care Document ---
Author Organization [facility] Address [address] [place] [address]- Care Team Providers Care Ops Manager Name Role Phone Miguel CORNELL, Rabia Haider Primary Care Physic sade [place] [facility] [place](s): 06/17/22 - 07/17/22 [facility] [address] [place] [id number] Allergies, Adverse Reactions, Alerts No [...] 5 Refills, Maintenance, 06/03/22 17:52:00 EST, Solution, [facility]/pharmacy #[id number], J45. 0, 147, cm, 06/03/22 14:49:00 EST, Height, 62.2, kg, 11/13/21 15:28:00 EDT, Dry Weight Start Date: 06/03/22 Status: Ordered budesonide 0.5 mg/2 mL inhalation suspension 0.5 mg, 2, mL, Neb, 2 times a day, # 120 mL, Refills 5, Tot. Refills 5, Maintenance, 06/03/22 17:52:00 EST, Suspension, Route to Pharmacy Electronically, [id number], [facility]/pharmacy #[id number], J45. 0, 147, cm, 06/03/22 14:49:00 [...] 06/19/22 16:30:00 EDT, Route to Pharmacy Electronically, [facility], Partial fill upon patient request if the [...] capsule, 0 Refills, Maintenance, 07/16/22 16:34:00 EDT, [facility]/pharmacy #[id number], Partial fill upon patient request if the prescription is for a schedule II opioid drug., 147.3, cm, 07/16/22 13:30:00 EDT, H... Start Date: 07/16/22 Stop Date: 08/15/22 Status: Ordered tiZANidine 4 mg oral tablet 4 mg, 1, tablet, By Mouth, 3 times a day, PRN, # 90 tablet, Refills 0, Tot. Refills 0, Maintenance,Spasm, 06/19/22 16:30:00 EDT, Route to Pharmacy Electronically, [facility], Partial fill upon [...] Personnel Name: Miguel CORNELL, Rabia Haider Position: [facility] Outreach Member Role: PCP Address: Address: [address] [place] [address], [place] [place], [place] [address] Name: Amanda Thurman RN Position: [facility] RN Member Role: Primary Care Nurse Care Team Related Persons Name: FADI DYSON Address: home [address] [place] [address] Name: MARY DYSON Name: SHEA DYSON Address: home [address] [place] [address]
--- OUTSIDE RECORDS SUMMARY | 2024-01-27 08:39 | XMS_ITS | Continuity of Care Document ---
Author Organization [facility] Address [address] [place] [address]- Care Team Providers Care Tower Technician Name Role Phone Reece Villeda Primary Care Physician En[facility] Date(s): 12/23/23 - 12/30/23 [facility] [address] [place], [place] [address] Attending Physician: Kellee Johnson NP Admitting Physician: Kellee Johnson NP Referring Physician: Reece Villeda Allergies, Adverse Reactions, [...] 17:52:00 EST, Suspension, Route to Pharmacy Electronically, [id number], [facility]/pharmacy #2339, J45. 0, 147, cm, [...] need lifetime 99 months Dx Asthma J45.909, .. Start Date: 06/04/22 Status: Ordered omeprazole 40 mg oral enteric coated capsule 1 capsule = 40 mg, By Mouth, 2 times a day, report back to Dr Samaniego after > 2 weeks on twice daily therapy to see if cough is better, # 60 capsule, 0 Refills, Maintenance, 10/14/22 15:45:00 EDT, EC Capsule, [facility]/pharmacy #[id number], Partial fill upon george... Start Date: 10/14/22 Stop Date: 11/13/22 Status: Ordered oxyCODONE 5 mg oral tablet 5 mg, 1, tablet, By Mouth, Every 4 hours, PRN, # 42 tablet, Refills 0, Tot. Refills 0, Maintenance,as needed for pain, 06/19/22 16:30:00 EDT, Route to Pharmacy Electronically, [facility], Partial fill upon patient request if the [...] capsule, 0 Refills, Maintenance, 07/16/22 16:34:00 EDT, [facility]/pharmacy #[id number], Partial fill upon patient request if the prescription is for a schedule II opioid drug., 147.3, cm, 07/16/22 13:30:00 EDT, H... Start Date: 07/16/22 Stop Date: 08/15/22 Status: Ordered tiZANidine 4 mg oral tablet 4 mg, 1, tablet, By Mouth, 3 times a day, PRN, # 90 tablet, Refills 0, Tot. Refills 0, Maintenance,Spasm, 06/19/22 16:30:00 EDT, Route to Pharmacy Electronically, [facility], Partial fill upon patient request [...] oldest [Reference Range]: 1 Height 147 cm (12/23/23 7:18 AM) Weight 60.9 kg (12/23/23 7:18 AM) Body Mass Index [18.5-24.99 kg/m2] 28.18 kg/m2 *H* (12/23/23 7:18 AM) Weight Obtained Via Patient/family state d (12/23/23 7:18 AM) Social History Social History Type Response Smoking Status Former smoker; Tobac co user in household: No; Other: pt states she quit smoking 30 years ago; entered on: 08/28/15 Sex Note * Mandeep Duff: PERFORM Event Display: Patient Education/Instruction Authored Date: [id number] Ambulatory Adult Visit Summary [facility] [address] [place] [address] [place] [address] Name: SANKET DYSON : 1950?? Visit: 12/23/2023 06:23?? Ambulatory Visit Instructions ?? Your Care Team Primary Care Provider Reece Anglin? This Visit Provider Alex CRAWFORD , Kellee Ferrer Your Diagnosis Leg pain Vitals Signs Height: 147 cm Weight: 60.9 kg Body Mass Index:??28.18 kg/m2??High Body surface area: 1.58 What to do next Scheduled Follow-Up Appointments Friday 9:40 AM EDT ?? With: Leyla Paulson MD Where: [facility] PARK ATTENDANT [address] [place] [address]- Status: Pending Friday 1:15 PM EDT ?? Where: [facility] [address], [address] [place] [address]- Status: Pending Medications The list below reflects the information in our records and provided by you today along with any changes made during this visit. Please continue your medications until treatment is completed or stopped by your provider. If this is different from the information you have or there are other questions,please contact the prescribing provider. What How Much When Why Instructions Unchanged Albuterol (Albuterol (Eqv-Ventolin HFA) 90 mcg/ inh inhalation aerosol) 2 puff(s) Inhalation Every 6 hours as needed for Wheezing/Shortness of Breath Duration: 30 Days Unchanged arformoterol (Brovana 15 mcg/ 2 mL [...] tab(s) Oral Daily Unchanged Durable Medical Equipment (Juxtafit Knee-high Compression Garments(bilateral, left, right) with 2 pairs of liners) See instructions Venous insufficiency of leg as directed ?? Unchanged Durable Medical Equipment (Nebulizer/ Compressor) See instructions E0570 Nebulizer A7003 Neb Disp set A7014 Neb Non-Disp Filter A7005 Neb non-Disp set A7015 Aerosol Mask A7013 NEb Disp Filter length of need lifetime 99 months Dx Asthma J45.909 ?? Unchanged Esomeprazole (esomeprazole 40 mg oral enteric coated capsule) Unchanged Miscellaneous Rx (Misc Rx) Unchanged Miscellaneous Rx (vidiscal) for hair growth ?? Unchanged Multivitamin Oral Daily Unchanged Omeprazole (omeprazole 40 mg oral enteric coated capsule) 1 capsule Oral Twice a day Duration: [address] back [address] Dr DiNino after > ??2 weeks on twice daily therapy to see if cough is better ?? Unchanged Oxycodone (oxyCODONE 5 mg oral tablet) [...] times a day as needed for Spasm Medications and Immunizations Administered Medications Given During Visit No medications given during this visit.?? Allergies (NKA means No Known Allergies) NKA Common Emergency Awareness Tips IS IT A [...] are strongly encouraged to quit. Please call [employer] at [phone] or [phone] ([phone]) or log in to [email or web address] for referrals to smoking cessation programs. ?? The National Suicide Prevention Hotline is available 28/10 if you or someone you know needs to find a reason to keep living. By calling 3-760-945-LookAcross (3240) you'll be connected to a skilled, trained counselor at a crisis center in your area. [facility] Health Portal You can view and manage your care through the patient portal or by using a health care los of your choosing. [employer] is a website that allows you to securely view your medical information including your hospital discharge summary, office visit summaries, medications and follow-up visits. You can also request appointments, renew medications, and request access to your medical information using a health care los of your choosing, or just ask a question. You can enroll at [email or web address] or register during your next office visit. [facility], in keeping with [facility] guidance, no longer requires face masks for staff, patientsor visitors in most situations. Similiar to time spent indoors at other locations, there is the chance that you were exposed to repiratory viruses during your time with us (such as flu or COVID-19). If you develop symptoms concerning for a viral respiratory infection, please seek testing (and treatment if indicated) from your medical provider or home test kit. ?? Disclaimer: The information provided is of a general nature and is intended to be used in conjunction with the recommendations and advice of your health care practitioner. Every effort has been made to ensure that the information provided is accurate and complete at the time it is provided to you however, as your needs change, or, as new information becomes available, different or additional instructions may be required. ?? If you have questions, please consult with your primary care provider or pharmacist, as appropriate. This information is not intended to serve as substitution for assessment and evaluation by a qualified health care provider. If you do not have a primary care provider, you may find a [facility] provider by calling [facility] [employer]ajan Link at [phone]. Patient Care team information Care Team Personnel Name: Olman HARPER, Amanda Position: Brigid RN Member Role: Primary Care Nurse Name: Reece Villeda Position: Reference Physician Member Role: PCP Address: Address: [address] [place] [address], [address] [place] [address]- Care Team Related Persons Name: JOHNNAElizabeth FER Address: [address] [address] Name: MARY DYSON Name: DALLAS DYSON Name: SHEA DYSON Address: home [address] [place] [address]
--- OUTSIDE RECORDS SUMMARY | 2024-01-27 08:39 | XMS_ITS | Continuity of Care Document ---
Author Organization [facility] Address [address] [place] [address]- Care Team Providers Care Honest John Rocket Crew Member Name Role Phone Reece Villeda Primary Care Physician [phone] [place] [facility] 12/09/23 - 01/08/24 [facility] [address] [place] [address]- Attending Physician: Christie Rai Admitting Physician: Christie Rai Referring Physician: Christie Rai Allergies, Adverse Reactions, Alerts No Known Allergies [...] Reference Physician Member Role: PCP Address: Address: [address] [place] [address], [address] [place] [address]- Care Team Related Persons Name: JOHNNAFER Johnson Address: [address] [address] Name: MARY DYSON Name: DALLSA DYSON Name: SHEA DYSON Address: [address] [address]
--- OUTSIDE RECORDS SUMMARY | 2024-01-27 08:39 | XMS_ITS | Continuity of Care Document ---
Author Organization [facility] nlistedplacess [facility] Address [address] [facility], [address] [place] [address]- Care Team Providers Care Manager Switch Name Role Phone Reece Villeda Primary Care Physician Encounter [facility] [id number] Date(s): 01/05/24 - 01/12/24 [facility]ul Cortezlistedplacess [facility] [address] [facility], [address] [place], [place] [address] Attending Physician: Leyla Paulson MD Referring Physician: Reece Villeda Allergies, Adverse [...] 5 Refills, Maintenance, 06/03/22 17:52:00 EST, Solution, [facility]/pharmacy #2339, J45. 0, 147, cm, 06/03/22 [...] oldest [Reference Range]: 1 Height 147 cm (01/05/24 9:47 AM) Weight 63 kg (01/05/24 9:47 AM) Pulse Rate [55-90 bpm] 84 bpm (01/05/24 9:47 AM) Body Mass Index [18.5-24.99 kg/m2] 29.15 kg/m2 *H* (01/05/24 9:47 AM) Blood Pressure [90-138/55-84 mm Hg] 112/ 68mm Hg (01/05/24 9:47 AM) Blood pressure sites Arm, left (01/05/24 9:47 AM) Dry Weight 63 kg (01/05/24 9:47 AM) Weight Obtained Via Standing scale (01/05/24 9:47 AM) Dry Weight Obtained Via Standing scale (01/05/24 9:47 AM) Social History Social History Type Response Smoking Status Former smoker; Tobac co user in household: No; Other: pt states she quit smoking 30 years ago; entered on: 08/28/15 Sex Patient Care team information Care Team Personnel Name: Olman HARPER, Amanda Position: S RN Member Role: Primary Care Nurse Name: Reece Villeda Position: Reference Physician Member Role: PCP Address: Address: [address] [place] [address], [address] [place], [place] [address] Care Team Related Persons Name: FER PURVIS Address: home [address] [address] Name: MARY DYSON Name: DALLAS DYSON Name: SHEA DYSON Address: home [address] [place] [address]
--- OUTSIDE RECORDS SUMMARY | 2024-01-27 08:39 | XMS_ITS | Continuity of Care Document ---
Author Organization [facility] Address [address] [place] [address]- Care Team Providers Care Assistant Project Manager Name Role Phone Reece Villeda Primary Care Physician Encounter [facility] Date(s): 10/06/23 - 11/05/23 [facility] [address] [place] [address]- Attending Physician: Christie Rai Admitting Physician: AdmChristie [...] 17:52:00 EST, Suspension, Route to Pharmacy Electronically, [id number], [facility]/pharmacy #2339, J45. 0, 147, cm, 06/03/22 [...] Refills, Maintenance, 10/14/22 15:45:00 EDT, EC Capsule, [facility]/pharmacy #0315, Partial fill upon george... Start Date: 10/14/22 Stop Date: 11/13/22 Status: Ordered oxyCODONE 5 mg oral tablet 5 mg, 1, tablet, By Mouth, Every 4 hours, PRN, # 42 tablet, Refills 0, Tot. Refills 0, Maintenance,as needed for pain, 06/19/22 16:30:00 EDT, Route to Pharmacy Electronically, [facility], Partial fill upon patient request if the [...] 0 Refills, Maintenance, 07/16/22 16:34:00 EDT, [facility]/pharmacy #8179, Partial fill upon patient request if the prescription is for a schedule II opioid drug., 147.3, cm, 07/16/22 13:30:00 EDT, H... Start Date: 07/16/22 Stop Date: 08/15/22 Status: Ordered tiZANidine 4 mg oral tablet 4 mg, 1, tablet, By Mouth, 3 times a day, PRN, # 90 tablet, Refills 0, Tot. Refills 0, Maintenance,Spasm, 06/19/22 16:30:00 EDT, Route to Pharmacy Electronically, [facility], Partial fill upon [...] Confirmed Active Obese class I Confirmed Active Social History Social History Type Response Smoking Status Former smoker; Tobac co user in household: No; Other: pt states she quit smoking 30 years ago; entered on: 08/28/15 Sex Patient Care team information Care Team Personnel Name: Olman HARPER, Amanda Position: S RN Member Role: Primary Care Nurse Name: Reece Villeda Position: Reference Physician Member Role: PCP Address: Address: [address] [place] [address], [address] [place], [place] [address] Care Team Related Persons Name: JOHNNAElizabeth FER Address: home [address] [address] Name: MARY DYSON Name: DALLAS DYSON Name: SHEA DYSON Address: home [address] [place] [address]
--- OUTSIDE RECORDS SUMMARY | 2024-01-27 08:39 | XMS_ITS | Continuity of Care Document ---
Author Organization [facility] Address [address] [facility], [address] [place] [address]- Care Team Providers Care Senior Database Administrator Name Role Phone Reece Villeda Primary Care Physician [id number] Date[facility] 08/27/23 - 09/26/[facility] [address] [facility], [address] [place], [place] [address] Allergies, Adverse Reactions, Alerts [...] 17:52:00 EST, Suspension, Route to Pharmacy Electronically, [id number], [facility]/pharmacy #2339, J45. 0, 147, cm, 06/03/22 14:49:00 EST,... Start Date: 06/03/22 Stop Date: 11/30/22 Status: Ordered chlorthalidone 25 mg oral tablet 25 mg, 1, tablet, By Mouth, Daily, # 30 tablet, Refills 0, Maintenance, 11/16/21 15:28:00 EDT, Partial fill upon patient request if the prescription is for a schedule II opioid drug. Start Date: 11/16/21 Status: [facility] Refills 0, Maintenance, 06/19/22 10:38:00 EDT, [...] Refills, Maintenance, 10/14/22 15:45:00 EDT, EC Capsule, [facility]/pharmacy #0315, Partial fill upon george... Start Date: 10/14/22 Stop Date: 11/13/22 Status: Ordered oxyCODONE 5 mg oral tablet 5 mg, 1, tablet, By Mouth, Every 4 hours, PRN, # 42 tablet, Refills 0, Tot. Refills 0, Maintenance,as needed for pain, 06/19/22 16:30:00 EDT, Route to Pharmacy Electronically, [facility], Partial fill upon patient request if [...] capsule, 0 Refills, Maintenance, 07/16/22 16:34:00 EDT, [facility]/pharmacy #2339, Partial fill upon [...] 06/19/22 16:30:00 EDT, Route to Pharmacy Electronically, [facility], Partial fill upon patient request [...] Reference Physician Member Role: PCP Address: Address: [address] [place] [address], [address] [place] [address]- Care Team Related Persons Name: FER PURVIS Address: home [address] [address] Name: MARY DYSON Name: DALLAS DYSON Name: SHEA DYSON Address: home [address] [place] [address]
[2024-01-27 08:41] VITALS: BP 133/100; PULSE 78; RESP 14; O2SAT 98; BMI 28.6
== END 2024-01-27 09:35 | disposition home or self-care (01) ==
LOC: HO.PMCPRC 08:35
PROVIDERS: PCP Registered Nurse; Visit Provider Anesthesiology
DX: M54.17 Radiculopathy, lumbosacral region (principal); Z98.1 Arthrodesis status; M48.062 Spinal stenosis, lumbar region with neurogenic claudication; M41.56 Other secondary scoliosis, lumbar region; M43.16 Spondylolisthesis, lumbar region; M96.1 Postlaminectomy syndrome, not elsewhere classified; M46.1 Sacroiliitis, not elsewhere classified; M53.3 Sacrococcygeal disorders, not elsewhere classified
CPT/HCPCS: 99214

== ENCOUNTER 2024-02-03 06:10 | Outpatient (REF) | payer MEDICARE, SELFPAY | END 2024-02-03 06:11 | disposition home or self-care (01) | LOC: CF 06:10 | PROVIDERS: Visit Provider Anesthesiology | DX: M53.3 Sacrococcygeal disorders, not elsewhere classified (principal); M46.1 Sacroiliitis, not elsewhere classified; M96.1 Postlaminectomy syndrome, not elsewhere classified | CPT/HCPCS: 27096; J2003; J2795; Q9967 ==

== ENCOUNTER 2024-02-03 08:25 | Outpatient (AMB) | payer MEDICARE, SELFPAY ==
--- OUTSIDE RECORDS SUMMARY | 2024-02-03 08:27 | XMS_ITS | Continuity of Care Document ---
Author Organization [facility] Address [address] [place] [id number]- Care Team Providers Care Residential Pest Control Technician Name Role Phone Reece Villeda Primary Care Physician Encounter [facility] Date(s): 12/03/23 - 01/29/24 [facility] [address], [place] [address] Attending Physician: Sai Sutton MD Admitting Physician: Sai Sutton MD Referring Physician: Rashaad Araiza MD Allergies, [...] Reference Physician Member Role: PCP Address: Address: [address] [place] [address], [address] [place] [address]- Care Team Related Persons Name: FER PURVIS Address: home [address] [address] Name: MARY DYSON Name: DALLAS DYSON Name: SHEA DYSON Address: home [address] [place] [id number]
--- NOTE | 2024-02-03 09:17 | A.OFFVIS_ITS ---
Vital Signs 02/03/24 09:41 02/03/24 09:42 Height 4 ft 10 in 4 ft 10 in Weight 137 lb 137 lb BMI 28.6 28.6 BP 127/76 112/74 Blood Pressure Location Lt brachial Lt brachial Position Sitting Sitting Respiration 18 18 Pulse 105 H 78 Pulse Source Pulse Oximeter Pulse Oximeter Pulse Oximetry (%) 97 98 Oxygen Delivery Method Room Air Room Air Comment pre-op post-op Intake Visit Reasons: RIGHT DIAGNOSTIC SIJ INJECTION Allergies diphenhydramine Adverse Reaction (Mild, Verified 02/03/24 09:43) Agitated meloxicam Adverse Reaction (Mild, Verified 02/03/24 09:43) Vomiting [facility] Medical History HTN (hypertension) History of endometrial biopsy Hemorrhage of rectum and anus Concussion Impaired fasting glucose Palpitations History of headache Fibromyositis Lumbar radiculopathy Back pain Degenerative, intervertebral disc, cervical Shoulder joint pain Osteoarthritis of knee UTI (urinary tract infection) Irritable bowel syndrome COPD (chronic obstructive pulmonary disease) Hyperlipidemia Vitamin D deficiency Herpes simplex Surgical History Hx of cataract surgery History of conization of cervix H/O colonoscopy History of total right knee replacement History of esophagogastroduodenoscopy (EGD) H/O excision of lamina of cervical vertebra for decompression of spinal cord Hx of appendectomy Hx of tonsillectomy History of abdominoplasty Hx of carpal tunnel repair Hx of breast biopsy Hx of tubal ligation Social History Household Members: None Housing: Condominium Patient Tobacco Use Status: Former Tobacco user Tobacco use type: Cigarette Years Smoked: 10 service: No Physical Exam Vital Signs: Last Vital Signs Pulse 78 02/03/24 09:42 Resp 18 02/03/24 09:42 BP 112/74 02/03/24 09:42 Pulse Ox 98 02/03/24 09:42 Oxygen Delivery Method Room Air 02/03/24 09:42 BMI result Body Mass Index 28.6 Assessment & Plan Assessment & Plan (1) Sacroiliac joint dysfunction of right side: Code(s): M53.3 - Sacrococcygeal disorders, not elsewhere classified Category: Medical (2) Sacroiliitis: Code(s): M46.1 - Sacroiliitis, not elsewhere classified Category: Medical (3) Post laminectomy syndrome: Code(s): M96.1 - Postlaminectomy syndrome, not elsewhere classified Category: Medical Plan Right diagnostic sacroiliac joint injection Informed consent was explained thoroughly to the patient.? All questions about benefits and risks for the procedure were answered.seismic interpreter real estate utilization officer Tara Paul helps her to convey this conversation. Patient came to the operating room and was positioned prone on the operating table with the pillow under the abdomen. The lower back and buttocks of the patient were prepped with ChloraPrep prepped and draped with sterile utility towels.? Sterilely draped C-arm was brought over the operating field and sq picture of patient's pelvis was demonstrated on the screen.? For the right joint tilting C-arm contralateral to the site of the joint the most posterior portion of the joints was superimposed with anterior silhouette of the joint.? Skin was injected in the projection of the joint slightly medial to the location of the joint with 25 gauge 1/2 inch needle using local lidocaine 2% . After that 22 gauge 3 and 1/2 inch needle was driven to the right joint in tunnel vision fashion.? When needle entered the joint capsule injection of the contrast was performed demonstrating intra-articular and minimally periarticular spread of the contrast.? After that 5.5 cc. of ropivacaine 0.5% was injected in the joint. Upon completion of the injections the needle was removed and Band- Aid was applied.? Upon completion of the injection patient was taken outside of the operating room to the recovery room where recovered uneventfully. Orders: Orders FL guidance in treatment room Today M53.3 - Sacrococcygeal disorders, not elsewhere classified Coding Level of Care Code Procedure Only Diagnoses Sacroiliac joint dysfunction of right side M53.3 Sacroiliitis M46.1 Post laminectomy syndrome M96.1
[2024-02-03 09:41] VITALS: BP 127/76; PULSE 105; RESP 18; O2SAT 97; BMI 28.6
[2024-02-03 09:42] VITALS: BP 112/74; PULSE 78; RESP 18; O2SAT 98; BMI 28.6
== END 2024-02-03 09:32 | disposition home or self-care (01) ==
LOC: HO.PMCPRC 08:25
PROVIDERS: PCP Registered Nurse; Visit Provider Anesthesiology
DX: M53.3 Sacrococcygeal disorders, not elsewhere classified (principal); M46.1 Sacroiliitis, not elsewhere classified
CPT/HCPCS: 27096

== ENCOUNTER 2024-02-11 08:38 | Outpatient (AMB) | payer MEDICARE, SELFPAY ==
--- NOTE | 2024-02-11 08:50 | A.OFFVIS_ITS ---
Vital Signs 02/11/24 08:51 Height 4 ft 10 in Weight 137 lb BMI 28.6 BP 120/66 Blood Pressure Location Lt brachial Position Sitting Pulse 71 Pulse Source Pulse Oximeter Pulse Oximetry (%) 97 Oxygen Delivery Method Room Air Intake Visit Reasons: RIGHT DIAGNOSTIC SIJ INJECTION Allergies diphenhydramine Adverse Reaction (Mild, Verified 02/11/24 08:51) Agitated meloxicam Adverse Reaction (Mild, Verified 02/11/24 08:51) Vomiting Medication List - Last Reconciled 02/11/24 by Reema Saenz acetaminophen 500 mg PO Q6H PRN atorvastatin 20 mg PO DAILY biotin 5 mg PO DAILY chlorhexidine gluconate 0.12% PO chlorthalidone 25 mg PO DAILY cyclosporine 0.05% drps ophthalmic (eye) esomeprazole magnesium 40 mg PO BID multivitamin 1 tab PO DAILY valacyclovir 1,000 mg PO Q12H HPI Comments Details: Deya Salcido) is back in my office after diagnostic right sacroiliac joint injection. It was performed on 02/03/2024. It was purely diagnostic injection without any steroids. Patient reports complete pain relief immediately after the injection. She reported pain maximum 1/10 for the 1st 6 hours after the injection. She reports overall 98% pain improvement. She reports excellent mobility. She reported that she recently took a flight across the country and she was able to sit through the flight without any difficulty. The patient also is reporting that she is able to walk without sensation of falling forward she is able to stand for long period of time the radiating pain into right lower extremity is all but gone. The pain relief lasted for about 9 days. She still feels pain improvement. We decided that in the future I can not perform 1 diagnostic sacroiliac joint injection with half of the dose of the steroids for her. Meanwhile I will offer her sacroiliac joint belt to maintain stability of the sacroiliac joint. She will come to the office for application of the belt because today we did not have appropriate device for her. 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 Her pain level today is 5/10. She reports pain is constant and worse at night. Status post 07/30/23 S/P L3-[address] Powell.after surgery she developed right lower back pain with radiation down the right leg to the foot radiating to the anterior thigh and lateral thigh to the level of the knee but not below that level. She denies pain radiation to the lower leg ankle foot or toes. Pain is corresponding to sensation of numbness and burning in the right thigh and she reported weakness of the muscles in the right thigh but not muscles of the lower leg foot or toes. She has a history of total knee replacement on the right, she was seen by Orthopedics and the complications coming from total knee replacement were ruled out. She was evaluated by Orthopedics and ruled out for hip or knee contributing factors. She was sent by surgery here to perform diagnostic L4 transforaminal epidural steroid injection. I discussed the situation with the patient. She was offered to have diagnostic transforaminal L4 epidural steroid injection however I told her that technically because of the hardware in her back it would be very difficult to perform. At the same time I examined the patient and results of my examination dictated as below. I believe that sacroiliac joint might play a significant role in this patient's condition. I told her that I feel that that will be better if we will perform diagnostic right sacroiliac joint injection before subjective her to more technically difficult injection which also carries the risk of more severe complications. Deya exhausted conservative therapy including PT, home exercise program, zxfu-cch-ymnkiuh medications, nonsteroidal anti inflammatory medications all without improvement of her pain. Denies red flag symptoms including new loss of bowel, bladder or saddle anesthesia. Patient has not attempted chiropractor, acupuncture, massage or previous attempts at injections. Pain is improved with cold application, topical medications and oral medications. [facility] Medical History HTN (hypertension) History of endometrial biopsy Hemorrhage of rectum and anus Concussion Impaired fasting glucose Palpitations History of headache Fibromyositis Lumbar radiculopathy Back pain Degenerative, intervertebral disc, cervical Shoulder joint pain Osteoarthritis of knee UTI (urinary tract infection) Irritable bowel syndrome COPD (chronic obstructive pulmonary disease) Hyperlipidemia Vitamin D deficiency Herpes simplex Surgical History Hx of cataract surgery History of conization of cervix H/O colonoscopy History of total right knee replacement History of esophagogastroduodenoscopy (EGD) H/O excision of lamina of cervical vertebra for decompression of spinal cord Hx of appendectomy Hx of tonsillectomy History of abdominoplasty Hx of carpal tunnel repair Hx of breast biopsy Hx of tubal ligation Social History Household Members: None [facility] Patient Tobacco Use Status: Former Tobacco user Tobacco use type: Cigarette Years Smoked: 10 service: No Review of Systems Const All systems reviewed & are unremarkable except as noted in HPI and below ENT Reports Normal hearing present Neuro Reports Normal hearing present, Denies Abnormal speech present and Denies Sensory deficit (Neuro) Physical Exam Vital Signs: Last Vital Signs Pulse 71 02/11/24 08:51 BP 120/66 02/11/24 08:51 Pulse Ox 97 02/11/24 08:51 Oxygen Delivery Method Room Air 02/11/24 08:51 BMI result Body Mass Index 28.6 Const General: no acute distress Nutritional Appearance: average body habitus and well nourished Orientation/consciousness: patient oriented x3 Limitations: no limitations Eyes General: appearance normal, both eyes and all related structures Pupils: Equal, round and reactive pupils present EOM: EOMs intact bilaterally Neck Neck: Yes full ROM Chest Chest palpation & inspection: normal inspection of the chest Resp Effort & Inspection: normal respiratory effort, able to speak in complete sentences, normal respiratory pattern, no audible wheezes and no cough Cardio Jugular venous distension: no JVD GI Inspection: Yes normal to inspection Back/Spine/Pelvis Other: Able to stand on bilateral tiptoes in bilateral heels without difficulty. That demonstrates normal L4 and S1 motor innervation. Able to flex herself forward but mostly on the account of the hips. There are very well healed scars on the posterior surface of the patient's back. Mikhail test is positive on the right. Pelvic distraction test is positive on the right. Pelvic compression test is positive on the right. Fourteen finger test is positive on the right. SLR is negative on the right as well as on the left. There is no hyperreflexia at bilateral patellar reflexes. Neuro General: patient oriented x3 and gait normal Cranial nerves: Yes CN's II-XII intact bilaterally, Yes Equal, round and re active pupils present, Yes Normal hearing present and Yes Ability to bilaterally elevate shoulders present Speech: No Abnormal speech present Gait exam (Neuro): Normal gait present Motor exam (neuro): 5/5 motor strength present throughout Sensory Exam: No Sensory deficit (Neuro) Extrem General: No pedal edema Psych Speech and movement: Normal speech and movement present Affect: normal affect Attitude: cooperative Thought process: Normal thought process present Thought content: Normal thought content present Insight: Good insight present (Psych) Judgement: Good judgement present (Psych) Results Reviewed Results Reviewed: 10/2023 MR/MR lumbar spine wo con FINDINGS: CORONAL ALIGNMENT: There is S-shaped scoliotic curvature, slightly convex to the left at L4-L5 and to the right at L1-L2 stable in appearance from previous x-rays. SAGITTAL ALIGNMENT: Mild retrolisthesis at L1-L2 and L2-L3 are similar to the prior x-ray. Otherwise normal lumbosacral alignment. LUMBOSACRAL JUNCTION: Normal. VERTEBRAL BODIES: Vertebral body heights are well maintained in the lumbar spine. There is mejv-ft-ctpifdlg chronic anterior wedging of the T11 vertebral body stable from previous x-ray without significant retropulsion. No acute or nonhealed fractures. HARDWARE: There is ferromagnetic artifact spanning the L3-L4 and L4-L5 levels consistent with previous posterior instrumented hardware fusion construct, with intervertebral disc spacers noted in place at these levels with associated metallic artifact. DISC SPACES AND ENDPLATES: There is moderate disc volume loss asymmetric to the right at L2-L3 with intradiscal loss of T2-weighted signal, central Schmorl's nodes and spondylosis. There is severe disc volume loss at L1-L2 with intradiscal loss of T2-weighted signal, Schmorl's nodes and spondylosis. There are findings of ojjdrmpi-ae-lcrvde intervertebral disc space height loss at the levels between T12-L1 and T10-T11 inclusive, with intradiscal loss of T2-weighted signal, Schmorl's nodes and spondylosis at these levels. SPINAL CANAL: No abnormal developmental findings. BONE MARROW: There are type I degenerative marrow signal changes seen along the endplates at L1-L2 and T12-L1 with type II marrow signal changes at L1-L2. No suspicious marrow-replacing process or bone marrow edema within the limitations of the exam. There is a subcentimeter focus of signal loss in the left sacral alum, likely reflecting a bone island, which is noted on the previous x-rays of 11/06/2022 unchanged in size. CONUS MEDULLARIS: Terminates at L1. Morphology and signal is normal. INTRADURAL NERVE ROOTS: Crowding of the intradural nerve roots at L2-L3 consistent with spinal stenosis. Otherwise grossly within normal limits. L5-S1: Minor annular bulging. Marked bilateral facet joint arthropathy. No central canal stenosis. Narrowing of the subarticular zones and lateral recesses slightly encroaching on the S1 nerve roots bilaterally. Loayfyjq-es-ytghce bilateral neural foraminal stenosis is noted partially obscured by metallic hardware artifact, right more than left with probable encroachment on the exiting L5 nerve roots bilaterally. L4-L5: Status post anterior and posterior fusion at this level and question of chronic post hemilaminotomy changes on the left with ligamentum flavum thickening. There is flattening of the ventral dural sac with mild central canal narrowing and crowding of the subarticular recesses bilaterally. Neural foramina are partially obscured by metallic hardware artifact. There is suspicion for at least moderate bilateral neural foraminal stenosis, with possible encroachment on the exiting L4 nerve roots bilaterally. L3-L4: Status post anterior and posterior fusion at this level with low T2-signal intensity in the ventral epidural space asymmetric to the right with flattening of the ventral dural sac, with moderate right and mild left-sided facet joint arthropathy and ligamentum flavum thickening. There is mild central canal stenosis with some crowding of the intradural nerve roots and there is marked right-sided subarticular recess stenosis. There is mgay-kp-hwvrzmmc left and zbxbzrbi-zo-sqltnn right-sided neural foraminal stenosis with encroachment on the exiting right L3 nerve root. L2-L3: There is mild retrolisthesis with diffuse disc bulging and flattening of the ventral dural sac. Facet joints are partially obscured by metallic hardware artifact but there is moderate bilateral facet joint arthrosis and there is ligamentum flavum thickening with ftxspary-ln-bbhqht central spinal canal stenosis with marked crowding of the intradural nerve roots. There is marked bilateral subarticular recess stenosis likely encroaching on the traversing L3 nerve roots bilaterally. There is moderate left and severe right-sided neural foraminal stenosis with right L2 nerve root impingement with a superimposed right foraminal/extraforaminal disc herniation noted. L1-L2: Retrolisthesis, posterolateral disc osteophyte complex and flattening of the ventral dural sac is noted with mild facet joint arthrosis, left more than right and ligamentum flavum thickening. No significant central canal stenosis. There is mild narrowing of the subarticular zones bilaterally. There is severe left and moderate right-sided neural foraminal stenosis with left L1 nerve root impingement. There is broad-based disc herniation at T12-L1 asymmetric to the left with encroachment on the left subarticular zone and the neural foramen possibly a abutting the exiting left T12 nerve root. PARAVERTEBRAL AND INCLUDED EXTRASPINAL SOFT TISSUES: There is posterior paraspinal and psoas muscle sarcopenia. T2 hyperintensity corresponding to the posterior paraspinal soft tissues at the operative levels likely reflecting denervation atrophy of the posterior paraspinal musculature. Partially imaged bilateral simple-appearing renal cysts, right more than left. Limited evaluation.?No specific follow up recommended based on the current ACR Best Practice Guidelines. IMPRESSION: 1. S-shaped scoliotic curvature as described above with mild retrolisthesis at L1-L2 and L2-L3. 2. Status post anterior and posterior fusions at the L3-L4 and L4-L5 levels with ferromagnetic artifact consistent with previous fusion at these levels. There is mild central canal stenosis at L4-L5 and L3-L4 and there is bilateral subarticular recess stenosis at L4-L5 and L3-L4 with probable encroachment on the traversing right L4 nerve root. There is foraminal narrowing bilaterally at the fused levels as detailed above. There is vdnzaeul-eq-bcjbnu bilateral neural foraminal stenosis at L5-S1 with encroachment on the L5 nerve roots bilaterally. 3. Disc bulging and posterolateral disc osteophyte complex at L2-L3 with facet joint arthrosis and moderate to severe spinal canal stenosis with marked crowding of the intradural nerve roots and marked bilateral subarticular recess stenosis, with moderate left and severe right-sided neural foraminal stenosis with right L2 nerve root impingement and a superimposed right foraminal/extraforaminal disc herniation. At L1-L2, there is disc osteophyte complex and facet joint arthropathy with severe left and moderate right-sided neural foraminal stenosis with left L1 nerve root impingement. 4. Lower thoracic degenerative changes between T10-T11 and T12-L1 inclusive, with broad-based disc herniation asymmetric to the left at T12-L1. 5. Mtnn-gb-ncvnbpeh chronic anterior wedging of the T11 vertebral body. Assessment & Plan Assessment & Plan (1) Lumbosacral radiculopathy at L4: Code(s): M54.17 - Radiculopathy, lumbosacral region Category: Medical (2) S/P lumbar fusion: Code(s): Z98.1 - Arthrodesis status Category: Surgical (3) Lumbar stenosis with neurogenic claudication: Code(s): M48.062 - Spinal stenosis, lumbar region with neurogenic claudication Category: Medical (4) Scoliosis of lumbar region due to degenerative disease of spine in adult: Code(s): M41.56 - Other secondary scoliosis, lumbar region Category: Medical (5) Spondylolisthesis, lumbar region: Code(s): M43.16 - Spondylolisthesis, lumbar region Category: Medical (6) Post laminectomy syndrome: Code(s): M96.1 - Postlaminectomy syndrome, not elsewhere classified Category: Medical (7) Sacroiliitis: Code(s): M46.1 - Sacroiliitis, not elsewhere classified Category: Medical (8) Sacroiliac joint dysfunction of right side: Code(s): M53.3 - Sacrococcygeal disorders, not elsewhere classified Category: Medical Plan My initial intention to replace recommended by neurosurgery L4-5 transforaminal epidural steroid injection through the existing hardware with right sacroiliac joint injection was validated by days patient's response of great pain improvement. We discussed future management. She will be given some other day the sacroiliac joint belt. We also can schedule her when her pain will come back with therapeutic sacroiliac joint injection with the half of the dose of the steroids (20 mg of triamcinolone). However was her osteoporotic changes sprint PNS vers us cure on X PNS treatment for her condition would be more appropriate than series of the steroid injections. Patient Instructions: I here by testify that I spent 30 minutes in conversation with this patient as well as planning her care and organizing this note Coding Level of Care Code Est Pt Level 4 (55437) Diagnoses Lumbosacral radiculopathy at L4 M54.17 S/P lumbar fusion Z98.1 Lumbar stenosis with neurogenic claudication M48.062 Scoliosis of lumbar region due to degenerative disease of spine in adult M41.56 Spondylolisthesis, lumbar region M43.16 Post laminectomy syndrome M96.1 Sacroiliitis M46.1 Sacroiliac joint dysfunction of right side M53.3
[2024-02-11 08:51] VITALS: BP 120/66; PULSE 71; O2SAT 97; BMI 28.6
== END 2024-02-11 09:23 | disposition home or self-care (01) ==
LOC: HO.PMC 08:39
PROVIDERS: PCP Registered Nurse; Visit Provider Anesthesiology
DX: M54.17 Radiculopathy, lumbosacral region (principal); Z98.1 Arthrodesis status; M48.062 Spinal stenosis, lumbar region with neurogenic claudication; M41.56 Other secondary scoliosis, lumbar region; M43.16 Spondylolisthesis, lumbar region; M96.1 Postlaminectomy syndrome, not elsewhere classified; M46.1 Sacroiliitis, not elsewhere classified; M53.3 Sacrococcygeal disorders, not elsewhere classified
CPT/HCPCS: 99214

== ENCOUNTER → 2024-02-11 08:38 | Outpatient (BNVA) | payer MEDICARE, SELFPAY | PROVIDERS: PCP Registered Nurse; Visit Provider Anesthesiology | DX: M54.17 Radiculopathy, lumbosacral region (principal); M48.062 Spinal stenosis, lumbar region with neurogenic claudication; M41.56 Other secondary scoliosis, lumbar region; M43.16 Spondylolisthesis, lumbar region; M96.1 Postlaminectomy syndrome, not elsewhere classified; M46.1 Sacroiliitis, not elsewhere classified; M53.3 Sacrococcygeal disorders, not elsewhere classified; Z98.1 Arthrodesis status | CPT/HCPCS: 99212 ==

== ENCOUNTER 2024-04-14 08:04 | Outpatient (AMB) | payer MEDICARE, SELFPAY ==
--- NOTE | 2024-04-14 08:07 | MHC.OFFVIS ---
Vital Signs 04/14/24 08:09 Height 4 ft 10 in Weight 137 lb BMI 28.6 BP 129/62 Blood Pressure Location Lt brachial Position Sitting Respiration 16 Pulse 70 Pulse Source Pulse Oximeter Pulse Oximetry (%) 98 Oxygen Delivery Method Room Air Intake Visit Reasons: SIJ Injection follow up Allergies diphenhydramine Adverse Reaction (Mild, Verified 04/14/24 08:10) Agitated meloxicam Adverse Reaction (Mild, Verified 04/14/24 08:10) Vomiting Medication List - Last Reconciled 04/14/24 by Nancy Ross LPN acetaminophen 500 mg PO Q6H PRN atorvastatin 20 mg PO DAILY biotin 5 mg PO DAILY chlorhexidine gluconate 0.12% PO chlorthalidone 25 mg PO DAILY cyclosporine 0.05% drps ophthalmic (eye) esomeprazole magnesium 40 mg PO BID multivitamin 1 tab PO DAILY valacyclovir 1,000 mg PO Q12H HPI Comments Details: Deya Salcido) is back in my office to discuss possibility of further treatment. She received sacroiliac joint injection diagnostic on on 02/03/2024. She reported excellent results of the diagnostic injection lasting more than several days on simple injection of the ropivacaine in intra-articularly, she reported excellent mobility excellent activities of daily living good social interactions. 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 She was referred to us for postlaminectomy syndrome treatment by Neurosurgery with request to perform transforaminal steroid injections. On the exam attention was attracted to symptoms of sacroiliitis. She is here today she reports significant osteoporosis. She requests me to perform therapeutic sacroiliac joint injection with steroids on the right. She tried sacroiliac joint belt however she is short in stature and sacroiliac joint belt helps her a little because it keeps sliding upon her torso. She tried ART therapy for muscle release and it helps her a lot, local physical therapy office helps her with this procedure. However she can not do those exercises for herself, and therefore it is a poor solution for further treatment. I do not think sacroiliac joint fusion would be appropriate way of treatment again because of her osteoporosis. I explained to her that steroid injections also can aggravate osteoporosis. She understood and yet she still requested me to perform steroid injection. I agreed but I explained to her sacroiliac joint innervation stimulation cure on X. Brochure was given. The patient was given also guidelines of psychological evaluation. She may request a colleague to complete the psychological evaluation and we will schedule her for a trial of cure on X. Prior: Results of sacroiliac joint injection on the right: The pain relief lasted for about 9 days. She still feels pain improvement. We decided that in the future I can not perform 1 diagnostic sacroiliac joint injection with half of the dose of the steroids for her. Meanwhile I will offer her sacroiliac joint belt to maintain stability of the sacroiliac joint. She will come to the office for application of the belt because today we did not have appropriate device for her. 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 Her pain level today is 5/10. She reports pain is constant and worse at night. Status post 07/30/23 S/P L3-[address] Powell.after surgery she developed right lower back pain with radiation down the right leg to the foot radiating to the anterior thigh and lateral thigh to the level of the knee but not below that level. She denies pain radiation to the lower leg ankle foot or toes. Pain is corresponding to sensation of numbness and burning in the right thigh and she reported weakness of the muscles in the right thigh but not muscles of the lower leg foot or toes. She has a history of total knee replacement on the right, she was seen by Orthopedics and the complications coming from total knee replacement were ruled out. She was evaluated by Orthopedics and ruled out for hip or knee contributing factors. She was sent by surgery here to perform diagnostic L4 transforaminal epidural steroid injection. I discussed the situation with the patient. She was offered to have diagnostic transforaminal L4 epidural steroid injection however I told her that technically because of the hardware in her back it would be very difficult to perform. At the same time I examined the patient and results of my examination dictated as below. I believe that sacroiliac joint might play a significant role in this patient's condition. I told her that I feel that that will be better if we will perform diagnostic right sacroiliac joint injection before subjective her to more technically difficult injection which also carries the risk of more severe complications. Deya exhausted conservative therapy including PT, home exercise program, [id number] medications, nonsteroidal anti inflammatory medications all without improvement of her pain. Denies red flag symptoms including new loss of bowel, bladder or saddle anesthesia. Patient has not attempted chiropractor, acupuncture, massage or previous attempts at injections. Pain is improved with cold application, topical medications and oral medications. [facility] Medical History HTN (hypertension) History of endometrial biopsy Hemorrhage of rectum and anus Concussion Impaired fasting glucose Palpitations History of headache Fibromyositis Lumbar radiculopathy Back pain Degenerative, intervertebral disc, cervical Shoulder joint pain Osteoarthritis of knee UTI (urinary tract infection) Irritable bowel syndrome COPD (chronic obstructive pulmonary disease) Hyperlipidemia Vitamin D deficiency Herpes simplex Surgical History Hx of cataract surgery History of conization of cervix H/O colonoscopy History of total right knee replacement History of esophagogastroduodenoscopy (EGD) H/O excision of lamina of cervical vertebra for decompression of spinal cord Hx of appendectomy Hx of tonsillectomy History of abdominoplasty Hx of carpal tunnel repair Hx of breast biopsy Hx of tubal ligation Social History Household Members: None Housing: Condominium Patient Tobacco Use Status: Former Tobacco user Tobacco use type: Cigarette Years Smoked: 10 service: No Review of Systems Const All systems reviewed & are unremarkable except as noted in HPI and below ENT Reports Normal hearing present Neuro Reports Normal hearing present, Denies Abnormal speech present and Denies Sensory deficit (Neuro) Physical Exam Vital Signs: Last Vital Signs Pulse 70 04/14/24 08:09 Resp 16 04/14/24 08:09 BP 129/62 04/14/24 08:09 Pulse Ox 98 04/14/24 08:09 Oxygen Delivery Method Room Air 04/14/24 08:09 BMI result Body Mass Index 28.6 Const General: no acute distress Nutritional Appearance: average body habitus and well nourished Orientation/consciousness: patient oriented x3 Limitations: no limitations Eyes General: appearance normal, both eyes and all related structures Pupils: Equal, round and reactive pupils present EOM: EOMs intact bilaterally Neck Neck: Yes full ROM Chest Chest palpation & inspection: normal inspection of the chest Resp Effort & Inspection: normal respiratory effort, able to speak in complete sentences, normal respiratory pattern, no audible wheezes and no cough Cardio Jugular venous distension: no JVD GI Inspection: Yes normal to inspection Back/Spine/Pelvis Other: Able to stand on bilateral tiptoes in bilateral heels without difficulty. That demonstrates normal L4 and S1 motor innervation. Able to flex herself forward but mostly on the account of the hips. There are very well healed scars on the posterior surface of the patient's back. Mikhail test is positive on the right. Pelvic distraction test is positive on the right. Pelvic compression test is positive on the right. Fourteen finger test is positive on the right. SLR is negative on the right as well as on the left. There is no hyperreflexia at bilateral patellar reflexes. Neuro General: patient oriented x3 and gait normal Cranial nerves: Yes CN's II-XII intact bilaterally, Yes Equal, round and reactive pupils present, Yes Normal hearing present and Yes Ability to bilaterally elevate shoulders present Speech: No Abnormal speech present Gait exam (Neuro): Normal gait present Motor exam (neuro): 5/5 motor strength present throughout Sensory Exam: No Sensory deficit (Neuro) Extrem General: No pedal edema Psych Speech and movement: Normal speech and movement present Affect: normal affect Attitude: cooperative Thought process: Normal thought process present Thought content: Normal thought content present Insight: Good insight present (Psych) Judgement: Good judgement present (Psych) Assessment & Plan Assessment & Plan (1) Lumbosacral radiculopathy at L4: Code(s): M54.17 - Radiculopathy, lumbosacral region Category: Medical (2) S/P lumbar fusion: Code(s): Z98.1 - Arthrodesis status Category: Surgical (3) Lumbar stenosis with neurogenic claudication: Code(s): M48.062 - Spinal stenosis, lumbar region with neurogenic claudication Category: Medical (4) Scoliosis of lumbar region due to degenerative disease of spine in adult: Code(s): M41.56 - Other secondary scoliosis, lumbar region Category: Medical (5) Spondylolisthesis, lumbar region: Code(s): M43.16 - Spondylolisthesis, lumbar region Category: Medical (6) Post laminectomy syndrome: Code(s): M96.1 - Postlaminectomy syndrome, not elsewhere classified Category: Medical (7) Sacroiliitis: Code(s): M46.1 - Sacroiliitis, not elsewhere classified Category: Medical (8) Sacroiliac joint dysfunction of right side: Code(s): M53.3 - Sacrococcygeal disorders, not elsewhere classified Category: Medical Plan My initial intention to replace recommended by neurosurgery L4-5 transforaminal epidural steroid injection through the existing hardware with right sacroiliac joint injection was validated by days patient's response of great pain improvement. We discussed future management. She has osteoporosis. Sacroiliac joint belt helps her a little but was of short stature keep sliding up to her torso. ART therapy helps her pain for about 1 day however it is provider dependent and she can not do this at home. Regular physical therapy exercises do not help the patient. She remains active and she performs aerobic exercises at her household. We discussed sacroiliac joint steroid injection. I will schedule her for this procedure. I also gave her cure on X brochure to to make her familiar with sacroiliac joint innervation stimulation. She will ask 1 of her psychiatrist colleagues to perform psychological evaluation. The guidelines were given to the patient. Patient Instructions: I here by testify that I spent 35 minutes in conversation with this patient as well as planning her care and organizing this note. Coding Level of Care Code Est Pt Level 4 (88156) Diagnoses Lumbosacral radiculopathy at L4 M54.17 S/P lumbar fusion Z98.1 Lumbar stenosis with neurogenic claudication M48.062 Scoliosis of lumbar region due to degenerative disease of spine in adult M41.56 Spondylolisthesis, lumbar region M43.16 Post laminectomy syndrome M96.1 Sacroiliitis M46.1 Sacroiliac joint dysfunction of right side M53.3
--- OUTSIDE RECORDS SUMMARY | 2024-04-14 08:07 | XMS_ITS | Continuity of Care Document ---
Author Organization [place] - [facility], [facility] Address [address] [place] [address] Assessment Encounter Date Assessment Date Assessment LastModified by Organization Details LastModified Time 02/25/2024 02/25/2024 Today we discuss ed the pathophysiology of tinnitus and the absence of consistently successful pharmacologic treatments for tinnitus. We discussed masking strategies to decrease awareness of the tinnitus, including using a white noise machine, music, or television.??We discussed how exposure to loud noise can worsen tinnitus so I recommended hearing protection. We also discussed other ways to potentially help reduce awareness of tinnitus including avoidance of caffeine, salty meals and NSAIDs. In light of the underlying sensorineural hearing loss, the patient may want to consider amplification. This would not only help with hearing, but can also be instrumental in acting as a masking source to help reduce the awareness of tinnitus. Repeat audio in a year to follow the asymmetry on right 4k. [email or web address] Not available 02/25/2024 11:08:16 Plan of Treatment Reminders Order Date Submit Date Provider Last Modified By Organization Details Last Modified Time Details Appointments Establish ed 15 2024 10:30A M AMANDA LOGAN MD Not available Not available Not available Lab None recorded. Referral None recorded. Procedures None recorded. Surgeries None recorded. Imaging None recorded. Medication Orders None recorded. Patient TargetsNo targets recorded. Patient InstructionsNo instructions recorded. Reason for Referral None Reported. Results Created Date Observation Date Name Description Value Unit Range Abnormal Flag Note LastModifiedBy Organization Detail LastModifiedTime 02/26/20 24 audio gram No observ ation record ed. BARCODE Not Available 2023 12:31:49 03/30/2003/29/2024 US, thyro id No observ ation record ed. [facility] [address] [facility] [address], [place], [address], 04/01/2024 13:04:22 Result Notes None recorded. Problems Name Problem SNOMED Code Status Onset Date Resolution Date Notes Provider Name and Address Organization Details Recorded Time Diffuse goiter 656944078 Active 2021 Diffuse (colloid) nontoxic goiter; Note: Date Diagnosed : 01/08/2022 3:54 PM (E04.0) AMANDA LOGAN MD [address] [facility],[place] [address], [place], [address] , [facility] - [facility] 4 10:50:02 Posterior rhinorrhe a 23100912 Active 2022 Postnasal drip; Note: Date Diagnosed : 3 12:32 PM (R09.82) Not Available [facility] 4 02:56:47 Dysphagia 49951076 Active 2018 Dysphagia , unspecifi ed; Note: Date Diagnosed : 04/10/2018 3:24 PM (R13.10) Not Available [facility] 4 02:56:43 Generaliz ed enlarged lymph nodes 694736939 Active 2018 Lymphaden opathy NOS; Note: Date Diagnosed : 04/10/2018 3:24 PM (R59.1) Not Available [facility] 4 02:56:48 Thyroidit is 13484444 Active 2018 Thyroidit is, unspecifi ed; Note: Date Diagnosed : 04/10/2018 3:24 PM (E06.9) Not Available [facility] 4 02:56:44 Gastroeso phageal reflux disease without esophagit is 146511417 Active 2021 Gastro-es ophageal reflux disease without esophagit is; Note: Date Diagnosed : 2 8:43 AM (K21.9) Not Available [facility] 4 02:56:43 Bilateral tinnitus 75170405331 02 Active 2023 AMANDA LOGAN MD [address] [facility],[place] [address], [place], [address] , [facility] - [facility] 4 10:17:08 Sensorine ural hearing loss of bilateral ears 630995737 Active 2023 [place], [facility] [address] [address], [place], [address] , [facility] - [facility] 4 10:48:57 Colloid goiter 53997157 Active 2023 Faye orosco, [place] - [facility] [place] 4 13:36:47 Problem Notes None recorded. Procedures Surgical History Date Name Laterality Status Provider Name and Address Organization Details Recorded Time 02/25/2024 Comp Audio with Tymps (91195 & 10393) completed [facility] [place], [facility] [address] [address], [place], [address], [facility] 02/25/2024 10:48:46 Imaging Results None recorded. Procedure Notes None recorded. Medical Equipment None Reported. Medications Name Sig Start Date Stop Date Status Note LastModified by Organization Details LastModified Time amoxicilli n 500 mg capsule TAKE 2 CAPSULES BY MOUTH NOW THEN 1 CAPSULE EVERY 8 HRS UNTIL FINISHED active Not Available Not Available No t Available atorvastat in 20 mg tablet 2017 active Medicatio n ID: [id number] Du ration Value: 30 Brand Name: atorvasta tin Send Method: E-Prescri bed Subs Allowed: subs OK Specia l Instructi on: TAKE 1 TABLET BY MOUTH DAILY FOR 30 DAYS. FASTING LIPID PANEL IN [facility] nericName : atorvasta tin Not Available Not Available Not Available valacyclov ir 1 gram tablet TAKE 1 TABLET EVERY 12 HOURS BY ORAL ROUTE DIRECTED FOR 90 DAYS. active Not Available Not Available No t Available hydrocodon e 5 mg-acetami nophen 325 mg tablet active Not Available Not Available No t Available prednisone 20 mg tablet TAKE 1 TABLET BY MOUTH EVERY DAY FOR 5 DAYS active Not Available Not Available No t Available alendronat e 70 mg tablet TAKE 1 TABLET BY MOUTH WEEKLY DIRECTED active Not Available Not Available No t Available prednisone 5 mg tablet PLEASE SEE ATTACHED FOR DETAILED DIRECTION S active Not Available Not Available No t Available chlorthali done 25 mg tablet active Medicatio n ID: [id number] Br and Name: chlorthal idone Sen d Method: E-Prescri bed Subs Allowed: subs [place] Medica tionGener icName: chlorthal idone Not Available Not Available Not Available amoxicilli n 875 mg tablet TAKE 1 TABLET BY MOUTH TWICE A DAY DIRECTED UNTIL FINISHED START 1 DAY BEFORE SURGERY active Not Available Not Available No t Available pantoprazo le 40 mg tablet,del ayed release active Medicatio n ID: [id number] Br and Name: pantopraz ole Send Method: E-Prescri bed Subs Allowed: subs [place] Medica tionGener icName: pantopraz ole Not Available Not Available Not Available esomeprazo le magnesium 40 mg capsule,de layed release TAKE 1 CAPSULE BY MOUTH TWICE A DAY active Not Available Not Available No t Available methylpred nisolone 4 mg tablets in a dose pack TAKE 6 TABLETS ON DAY 1 DIRECTED ON PACKAGE AND DECREASE BY 1 TAB EACH DAY FOR A TOTAL OF 6 DAYS active Not Available Not Available No t Available albuterol sulfate HFA 90 mcg/actuat ion aerosol inhaler INHALE 2 PUFFS INTO LUNGS EVERY 6 HOURS NEEDED FOR WHEEZING AND SHORTNESS OF BREATH active Not Available Not Available No t Available cyclobenza nasim 5 mg tablet TAKE 1 TABLET BY MOUTH THREE TIMES A DAY DIRECTED FOR 10 DAYS active Not Available Not Available No t Available cyclospori ne 0.05 % eye drops in a dropperett e LOCATION: BOTH EYES. INSTILL ONE DROP IN BOTH EYES TWICE A DAY active Not Available Not Available No t Available chlorhexid ine gluconate 0.12 % mouthwash RINSE WITH 15ML TWO TIMES PER DAY FOR 30 SECONDS THEN SPIT. START MORNING AFTER SURGERY DIRECTED active Not Available Not Available No t Available Multi-Magdalene min HP/Mineral s active Medicatio n ID: [id number] Br and Name: Multi-Vit bryant HP/Minera ls Send Method: E-Prescri bed Subs Allowed: subs [place] Medica tionGener icName: Multi-Vit bryant HP/Minera ls Not Available Not Available Not Available Vital-D Rx 1,750 unit-60 mg-1 mg-12.5 mg tablet active Medicatio n ID: [id number] Br and Name: B cmplx 4-vit D3-C-foli c-zinc Se nd Method: E-Prescri bed Subs Allowed: subs [facility] icName: B cmplx 4-vit D3-C-foli c-zinc Not Available Not Available Not Available GaviLyte-G 236 gram-22.74 gram-6.74 gram-5.86 gram oral solution TAKE 4000 MLS BY MOUTH DIRECTED active Not Available Not Available No t Available Biotin Plus 5,000 mcg-10 mg tablet active Medicatio n ID: [id number] Br and Name: Biotin Plus Send Method: E-Prescri bed Subs Allowed: subs [place] [facility] icName: Biotin Plus Not Available Not Available Not Available Vitals None Recorded Social History None recorded. Functional Status None recorded. Mental Status None recorded. Family History Nothing Reported. Medical History No medical history recorded. Gynecological HistoryNo gynecological history recorded. Obstetrics History GPAL:G 0 P 0 0 0 0 Past Encounters Encounter ID Performer Location Encounter Start Date Encounter Closed Date Diagnosis/Indication Diagnosis SNOMED-CT Code Diagnosis ICD10 Code Diagnosis Note [id number] AMANDA LOGAN MD [facility] of [address] [address] 02/25/2024 09:36:35 02/25/2024 11:09:33 Diffuse goiter [id number] E04.0 no further workup Bilateral tinnitus 94701 61895 102 H93.13 Sensorineu ral hearing loss of bilateral ears 626745446 H90.3 Audiologic al evaluation results: Right ear: {{Normal* Normal through 2 kHz Mild M oderate Mo derately-s evere Jaye re Profoun d}} {{hearing hearing. s loping to a mild slopi ng to a moderate* sloping to moderately severe slo ping to severe slo ping to profound f lat high frequency low frequency mid frequency cookie bite marshall curve}} {{with sen sorineural hearing loss with* cond uctive hearing loss with mixed hearing loss with}} {{excellen t* good fa ir poor no measurable }} word recognitio n. Left ear: {{Normal* Normal through 2 kHz Mild M oderate Mo derately-s evere Jaye re Profoun d}} {{hearing hearing. s loping to a mild slopi ng to a moderate s loping to moderately severe* sl oping to severe slo ping to profound f lat high frequency low frequency mid frequency cookie bite marshall curve}} {{with sen sorineural hearing loss with* cond uctive hearing loss with mixed hearing loss with}} {{excellen t* good fa ir poor no measurable }} word recognitio n. Tympanomet ry: Right Ear:{{Type A* Type As Type Ad Type C Type C, shallow & rounded Ty pe B Type B with large volume Cou ld not maintain a hermetic seal}} Left Ear:{{Type A* Type As Type Ad Type C Type C, shallow & rounded Ty pe B Type B with large volume Cou ld not maintain a hermetic seal}} Posterior rhinorrhea 758 74272 R09.82 nasal saline is helpful Health Concerns Section Related Observation LastModified by Organization Detai ls LastModified Time None Recorded Concern Status LastModified by Organization Details LastModified Time None Recorded Payers Encounter Date Sequence Insurance Name Policy Number Policy Salomon Covered Member ID Salomon Member ID Guarantor Name 02/25/2024 1 [facility] (MEDICARE REPLACEMENT /ADVANTAGE - PPO) [id number] 01 Deya A A Kasulinous [id number] Deya A Kasulinous Notes Date Note Type Note Provider Name and Address Organization Details Recorded Time 4 text/html Patient of Dr Hackett 12/2023 with dizzy that woke her from sleep. lasted a day associated with movementbilateral non pulsatile buzzno prior hearing testing, no new meds PNDprevious allergy testing was benigngood response to nasal salinehx of sinus lift and implants jepxyri75/20/23 US thyroid [facility] -nodule 1 - right lower, 13mm, TR RADS 3nodule 2 - left upper, 15mm, TR RADS 4 03/13/2022 US FNA thyroid, NEE, path at [facility] thyroid nodule benign follicularleft thyroid nodule benign follicular PV 02/18/2023 KA, US thyroid followup requested. 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
--- OUTSIDE RECORDS SUMMARY | 2024-04-14 08:07 | XMS_ITS | Data Portability ---
Author Organization [place] - [facility], Allergy Address [address] [address] Assessment Encounter Date Assessment Date Assessment LastModified [...] observ ation record ed. [facility] [place] [address] [facility] [address], [place], [address], 04/01/2024 13:04:22 Result Notes None recorded. Problems Name Problem SNOMED Code Status Onset Date Resolution Date Notes Provider Name and Address Organization Details Recorded Time Diffuse goiter 680294178 Active 2021 Diffuse (colloid) nontoxic goiter; Note: Date Diagnosed : 01/08/2022 3:54 PM (E04.0) AMANDA LOGAN MD [address] [facility],[place] [address], [place], [address] , [facility] - [facility] 4 10:50:02 Posterior rhinorrhe a 19285009 Active 2022 Postnasal drip; Note: Date Diagnosed : 3 12:32 PM (R09.82) Not Available [facility] 4 02:56:47 Dysphagia 61871843 Active 2018 Dysphagia , unspecifi ed; Note: Date Diagnosed : 04/10/2018 3:24 PM (R13.10) Not Available [facility] 4 02:56:43 Generaliz ed enlarged lymph nodes 693126339 Active 2018 Lymphaden opathy NOS; Note: Date Diagnosed : 04/10/2018 3:24 PM (R59.1) Not Available [facility] 4 02:56:48 Thyroidit is 05555667 Active 2018 Thyroidit is, unspecifi ed; Note: Date Diagnosed : 04/10/2018 3:24 PM (E06.9) Not Available [facility] 4 02:56:44 Gastroeso phageal reflux disease without esophagit is 308715728 Active 2021 Gastro-es ophageal reflux disease without esophagit is; Note: Date Diagnosed : 2 8:43 AM (K21.9) Not Available [facility] 4 02:56:43 Bilateral tinnitus 96842385784 02 Active 2023 AMANDA LOGAN MD [address] [facility] [address], [place], [address] , [facility] - [facility] [place] 4 10:17:08 Sensorine ural hearing loss of bilateral ears 800500810 Active 2023 [place] [place], [facility] [address] [facility],[address] [place], [address] , [facility] - [facility] 4 10:48:57 Colloid goiter 97701107 Active 2023 Faye orosco [place] - [facility] [place] 4 13:36:47 Problem Notes None recorded. Procedures Surgical History Date Name Laterality Status Provider Name and Address Organization Details Recorded Time 02/25/2024 Comp Audio with Tymps (52609 & 16150) completed [facility] [place], [facility] [address] [facility],[place] [address], [place], [address], [facility] - [facility] 02/25/2024 10:48:46 Imaging Results Imaging Date Name Status LastModified by Organiz ation Details LastModified Time 02/26/2024 audiogram completed BARCODE Information no t available 02/26/2024 12:31:49 03/29/2024 US, thyroid completed [facility] [address] [facility] [address], [place], [address], 04/01/2024 13:04:22 Procedure Notes None recorded. Medical Equipment None Reported. Medications Name Sig Start Date Stop Date Status Note LastModified by Organization Details LastModified Time amoxicilli n 500 mg capsule TAKE 2 CAPSULES BY MOUTH NOW THEN 1 CAPSULE EVERY 8 HRS UNTIL FINISHED active Not Available Not Available No t Available atorvastat in 20 mg tablet 2017 active Medicatio n ID: [id number] Du ration Value: 30 Brand Name: atorvasta tin Send Method: E-Prescri bed Subs Allowed: subs OK Specia l Instructi on: TAKE 1 TABLET BY MOUTH DAILY FOR 30 DAYS. FASTING LIPID PANEL IN [facility] nericName : atorvasta tin Not Available Not [...] 25 mg tablet active Medicatio n ID: [id number] Br and Name: chlorthal idone Sen d [...] tablet,del ayed release active Medicatio n ID: [id number] Br and Name: pantopraz ole Send Method: [...] min HP/Mineral s active Medicatio n ID: [id number] Br and Name: Multi-Vit bryant HP/Minera ls Send Method: E-Prescri bed Subs Allowed: subs [place] [facility] icName: Multi-Vit bryant HP/Minera ls Not Available Not Available Not Available Vital-D Rx 1,750 unit-60 mg-1 mg-12.5 mg tablet active Medicatio n ID: [id number] Br and Name: B cmplx 4-vit D3-C-foli c-zinc Se nd Method: E-Prescri bed Subs Allowed: subs [place] [facility] icName: B cmplx 4-vit D3-C-foli c-zinc Not Available Not Available Not Available GaviLyte-G 236 gram-22.74 gram-6.74 gram-5.86 gram oral solution TAKE 4000 MLS BY MOUTH DIRECTED active Not Available Not Available No t Available Biotin Plus 5,000 mcg-10 mg tablet active Medicatio n ID: [id number] Br and Name: Biotin Plus Send Method: E-Prescri bed Subs Allowed: subs [place] [facility] icName: Biotin Plus Not Available Not Available [...] SNOMED-CT Code Diagnosis ICD10 Code Diagnosis Note [id number] AMANDA LOGAN MD [facility] of [address] [address] 02/25/2024 09:36:35 02/25/2024 11:09:33 Diffuse goiter 277343267 E04.0 no further workup Bilateral tinnitus 52470 83061 102 H93.13 Sensorineu ral hearing loss of bilateral ears 621313119 H90.3 Audiologic al evaluation results: Right ear: [...] maintain a hermetic seal}} Posterior rhinorrhea 758 68375 R09.82 nasal saline is helpful Health Concerns Section Related Observation LastModified by Organization Detai ls LastModified Time None Recorded Concern Status LastModified by Organization Details LastModified Time None Recorded Advance Directives Directive None Recorded Payers Encounter Date Sequence Insurance Name Policy Number Policy Salomon Covered Member ID Salomon Member ID Guarantor Name 02/25/[address] [place] [address] (MEDICARE REPLACEMENT /ADVANTAGE - PPO) [id number] 01 Deya A A Kasulinous [id number] Deya A Kasulinous Notes Date Note Type Note Provider Name and Address Organization Details Recorded Time 4 text/html Patient of Dr Hackett 12/2023 with dizzy that woke her from sleep. lasted a day associated with movementbilateral non pulsatile buzzno prior hearing testing, no new meds PNDprevious allergy testing was benigngood response to nasal salinehx of sinus lift and implants ivbfksj17/20/23 US thyroid [facility] -nodule 1 - right lower, 13mm, TR RADS 3nodule 2 - left upper, 15mm, TR RADS 4 03/13/2022 [facility]left thyroid nodule benign follicular PV 02/18/2023 KA, US thyroid followup requested. 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 - [facility] 02/25/2024 11:08:29 OBGyn Episode No OBEpisode recorded.
[2024-04-14 08:09] VITALS: BP 129/62; PULSE 70; RESP 16; O2SAT 98; BMI 28.6
== END 2024-04-14 08:54 | disposition home or self-care (01) ==
PROVIDERS: PCP Registered Nurse; Visit Provider Anesthesiology
DX: M54.17 Radiculopathy, lumbosacral region (principal); Z98.1 Arthrodesis status; M48.062 Spinal stenosis, lumbar region with neurogenic claudication; M41.56 Other secondary scoliosis, lumbar region; M43.16 Spondylolisthesis, lumbar region; M96.1 Postlaminectomy syndrome, not elsewhere classified; M46.1 Sacroiliitis, not elsewhere classified; M53.3 Sacrococcygeal disorders, not elsewhere classified
CPT/HCPCS: 99214

== ENCOUNTER → 2024-04-14 08:04 | Outpatient (BNVA) | payer MEDICARE, SELFPAY | PROVIDERS: PCP Registered Nurse; Visit Provider Anesthesiology | DX: M54.17 Radiculopathy, lumbosacral region (principal); M48.062 Spinal stenosis, lumbar region with neurogenic claudication; M41.56 Other secondary scoliosis, lumbar region; M43.16 Spondylolisthesis, lumbar region; M96.1 Postlaminectomy syndrome, not elsewhere classified; M46.1 Sacroiliitis, not elsewhere classified; M53.3 Sacrococcygeal disorders, not elsewhere classified; Z98.1 Arthrodesis status | CPT/HCPCS: 99212 ==

== ENCOUNTER → 2024-05-12 14:46 | Outpatient (BNVA) | payer MEDICARE, SELFPAY | PROVIDERS: PCP Registered Nurse; Visit Provider Neurological Surgery | DX: M54.17 Radiculopathy, lumbosacral region (principal) | CPT/HCPCS: 99212 ==

== ENCOUNTER 2024-12-08 13:26 | Outpatient (AMB) | payer MEDICARE, SELFPAY ==
--- NOTE | 2024-12-08 13:45 | A.SPINEOV_ITS ---
Intake Visit Reasons: Recurrent back pain and Leg Intake Note: Ms. Vazquez is here today c/o recurrent back and leg pain with numbness. Product Planner Required: No Allergies diphenhydramine Adverse Reaction (Mild, Verified 05/12/24 15:10) Agitated meloxicam Adverse Reaction (Mild, Verified 05/12/24 15:10) Vomiting Assessment & Plan Assessment & Plan (1) Lumbosacral radiculopathy at L4: Code(s): M54.17 - Radiculopathy, lumbosacral region Category: Medical Plan Dear colleague, On 12/07/2024, I saw for follow-up Deya Vazquez for predominantly right leg pain. This patient underwent an L3-L5 lumbar fusion on 07/29/2023 that resolved her back pain. She continues to complain of a pain that radiates from the back to the front of her thigh. In addition, there is muscle wasting of the hopkins muscles. A repeat MRI shows moderate bilateral L4 foraminal stenosis. C linically, this fits the picture of an L4 radiculopathy and I wanted to have an L4 block to further confirm my diagnosis. Unfortunately, 2 pain specialist were not able to block the L4 nerve root due to the hardware. She tells that recently also the left side starts to tingle in the same distribution. The pain is aggravated by prolonged sitting. Walking is very painful initially but then the symptoms improved. I went over the MRI again with the patient and I think her symptoms warrant a bilateral L4 foraminotomy if she finds the symptoms to be severe enough to undergo another surgery. Apparently, she recently had a lacunar infarct without residual neurological deficits back in July. She is currently being evaluated by Cardiology to assess if they can find a source. I told the patient that if Cardiology comes back negative that she should be allowed to undergo a lumbar decompression. She will return to my office when the cardiology workup is completed and if she wants to pursue surgery. I spent 25 minutes in his consult reviewing imaging and discussing plan of care. David Powell MD, PhD Spine Fellowship Trained Neurosurgeon Director, [facility] Coding Level of Care Code Est Pt Level 3 (95745) Diagnoses Lumbosacral radiculopathy at L4 M54.17
--- OUTSIDE RECORDS SUMMARY | 2024-12-08 15:40 | XMS_ITS | Clinical Summary ---
Author Organization [facility] Address [address] [place] [phone] Phone Care Team Providers Care Chiseler Head Name Role Phone Reece Anglin Primary Care Provider [phone] Allergies Active Allergy Reactions Criticality Noted Date Comments Diphenhydramine Irritable 02/12/2024 Meloxicam Nausea And Vomiting 02/12/2024 Medications multivitamin tablet Take 1 tablet by mouth 1 (one) time each day. Active biotin 2,500 mcg capsule Take 2 capsules by mouth 1 (one) time each day. Active esomeprazole (NexIUM) [address] capsule Take 1 capsule (40 mg total) by mouth 1 (one) time each day before breakfast. Do not open capsule. Active ibuprofen (ADVIL,MOTRIN) 800 mg tablet Take 1 tablet (800 mg total) by mouth every 12 (twelve) hours if needed for mild pain. Active acetaminophen (TYLENOL 8 HOUR) 650 mg 8 hr tablet Take 1 tablet (650 mg total) by mouth every 8 (eight) hours if needed for mild pain. Do not crush, chew, or split. Active chlorthalidone (HYGROTON) 25 mg tablet Take 1 tablet (25 mg total) by mouth 1 (one) time each day. 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 The chest pain does not seem to limit her exercise. Stress echo within the past two years normal, as was recent ETT. Recommend echocardiogram to reassess EF, WMAs, and valvular abnormalities. She did have some mild diastolic dysfunction on echo in 2019, but no PND/orthopnea/weight gain/edema sx now. She has decided to take a baby asa. Her cardiac risk factors include smoking, hld, and family hx of CAD (brother just had CABG recently). She is seeing specialists to r/o pulmonary and GI causes of her sx. Will discuss with Dr. Esquivel if sx are not explained by her upcoming cardiac/non-cardiac testing, if cardiac cath would be appropriate. Assessment & Plan (09/09/2024 11:59 AM EDT): She is denying anginal symptoms at this time. She had recent cardiac catheterization which revealed normal coronary arteries as well as coronary pressures. She is on cardioprotective medical therapy of aspirin and statin. Orders: ECG 12 lead Transthoracic echocardiogram (TTE) complete with PRN contrast, bubble, strain, and 3D order panel; Future perflutren lipid microsphere (DEFINITY) 1.3 mL in sodium chloride 0.9% 8.7 mL injection COPD (chronic obstructive pu lmonary disease) ([facility] V24, [facility] V28) 05/03/2020 Hyperlipidemia 05/03/2020 Overview (03/04/2024): Last Assessment & Plan: She will continue on her current dose of Lipitor 20 mg to be mindful of her dietary fat intake. We could consider updating fasting lipid profile annually with a goal LDL less than 70 in the setting of coronary artery calcification. Assessment & Plan (09/09/2024 11:59 AM EDT): Continue on Lipitor 20 mg and be mindful of dietary fat intake. Patient will continue with diet and lifestyle modification to help further reduce cholesterol levels. Assessment & Plan (05/06/2024 8:47 AM EST): Palpitations 05/03/2020 Overview (03/04/2024): Last Assessment & Plan: Denies perception of recurrence of palpitations. She encouraged to be mindful of her caffeine and alcohol intake as well as her hydration status. I have made no changes to her medical therapy. Assessment & Plan (09/09/2024 11:59 AM EDT): Endorses increase in frequency and duration. Patient has concerns regarding atrial fibrillation as she was feeling unwell when she was with a friend who has an Apple Watch and reading during her episode revealed atrial fibrillation. Subsequently, we will put a monitor on the patient to further evaluate for any electrical disturbances or atrial fibrillation. We also discussed the possibility of long-term monitoring in the form of an ILR should this monitor not reveal any arrhythmia. We did briefly discuss her [id number] score and that if she does have true atrial fibrillation initiation of DOAC would be warranted. We also briefly discussed the potential for Watchman should she be unable to tolerate anticoagulation as she does suffer from bruising while being on a baby aspirin. We will follow-up with recommendations once her monitor has been completed. Orders: Cardiac event monitor; Future PVC's (premature ventricular contractions) 05/03 Overview (03/04/2024): Last Assessment & Plan: Still has palpitations, but self-limiting. She is not taking the propranolol. Dyspnea on exertion 05/03/2020 Overview (03/04/2024): Last Assessment & Plan: Pt admits to worsening BHATTI over the past year, particularly with exercise. She does have COPD/asthma and sees pulmonary. No significant weight gain over the past year per her report. Recommend echocardiogram to structurally evaluate her heart. She does have some sleep disturbance and likely snores and all of her children have BENITO; we discussed considering a sleep study in the future if her symptoms are otherwise not explained by her upcoming testing. Encounters Date Type Department Care Team Description 09/24/2024 7:00 AM EDT Ancillary Procedure [facility] Cardiology [facility] [address] [place] [address] Palpitations 09/10/[address] [facility] Cardiology [facility] [address] [place] [address] Steven Esquivel MD 09/09/2024 11:10 AM EDT Office Visit [facility] Cardiology [facility] [address] [place] [id number] Bonita Lamas NP Chest pain, unspecified type (Primary Dx); Palpitations; Other hyperlipidemia from Last 3 Months Surgical History Surgery Date Site/Laterality Comments COLONOSCOPY PROCEDURE:COLONOSCOPY CATARACT EXTRACTION W/ INTRAOCULAR LENS IMPLANT PROCEDURE:CATARACT EXTRACTION W/ INTRAOCULAR LENS IMPLANT BREAST SURGERY PROCEDURE:BREAST SURGERY;COMMENT:breast Bx with clip TONSILLECTOMY PROCEDURE:TONSILLECTOMY APPENDECTOMY PROCEDURE:APPENDECTOMY TUBAL LIGATION PROCEDURE:TUBAL LIGATION OTHER SURGICAL HISTORY PROCEDURE:ABDOMINOPLASTY TOTAL KNEE ARTHROPLASTY 02/07/2022 Right PROCEDURE:TOTAL KNEE ARTHROPLASTY;COMMENT:Proced ure: REPLACEMENT TOTAL KNEE; Surgeon: Roderick Carrion MD; Location: [facility] Service: Orthopedics; Laterality: Right; JOINT REPLACEMENT PROCEDURE:JOINT REPLACEMENT CARDIAC CATHETERIZATION DONE ON 02/12/2024 AT [facility] Medical History Medical History Date Comments COPD (chronic obstructive pu lmonary disease) ([facility] V24, [facility] V28) DX:COPD (chronic o bstructive pulmonary disease) ([facility]) Osteoarthritis DX:Osteoarthriti s Asthma DX:Asthma Anesthesia DX:Anesthesia;CO MMENT:Waking up difficulty Chest pain DX:Chest pain Hypertension DX:Hypertension Hyperlipidemia DX:Hyperlipidemi a Urinary urgency DX:Urinary urgen cy H/O cold sores DX:H/O cold sore s;COMMENT:Last 6 months ago Family History Medical History Relation Name Comments Hypertension Brother Cancer Father Hypertension Father Diabetes Mother Hypertension Mother Other: bradycardia Mother Relation Name Status Comments Brother Father Mother Social History Tobacco Use Types Packs/Day Years Used Date Smoking Tobacco: Never Cigarettes Qu it: 04/07/1979 Smokeless Tobacco: Never Alcohol Use Standard Drinks/Week Comments Yes 0 (1 standard drink = 0.6 oz pur e alcohol) occasional Comments Unknown Sex and Gender Information Value Date Recorded Sex Assigned at Female 02/07/2024 9:07 AM EDT Legal Sex Female 9:01 PM EST Gender Identity Female 02/07/2024 9:07 AM EDT Sexual Orientation Straight 02/12/2024 7: 21 AM EST Obstetrics History Last Filed Vital Signs Vital Sign Reading Time Taken Comments Blood Pressure 100/70 09/09/2024 10:56 AM EDT Pulse 83 09/09/2024 10:56 AM EDT Temperature 37.3 C (99.2 F) 02/12/2024 7:49 AM EST Respiratory Rate 16 02/12/2024 12:40 PM EST Oxygen Saturation 96% 09/09/2024 10:56 AM EDT Inhaled Oxygen Concentration - - Weight 61.7 kg (136 lb) 09/09/2024 10:56 AM EDT Height 147.3 cm (4' 10 ) 09/09/2024 10:56 AM EDT Body Mass Index 28.42 09/09/2024 10:56 AM EDT Plan of Treatment Upcoming Encounters Date Type Department Care Team (Late st Contact Info) Description 12/22/2024 10:00 AM EDT Ancillary Procedure [facility] [address] [place] [address] Health Maintenance Due Date Last Done Comments Pneumococcal Vaccine: 50+ Years (1 of 2 - PCV) 1971 RSV Immunization Adult Patients (1 - Risk 60-74 years 1-dose series) 2012 Cholesterol Screening (Lipid Panel) 03/16/2022 Colorectal Cancer Screening: Colonoscopy 03/16/2022 Falls Risk Assessment 03/16/2022 Hepatitis C Screening 03/16/2022 Social Influencers of Health Screening 03/16/2022 Breast Cancer Screening 11/30/2022 11/30/2020 Medicare Annual Wellness Visit 06/15/2023 06/14/2022 Depression Screening 04/07/2024 COVID-19 Vaccine (3 - 2024-2 6 season) 2024 09/01/2020, 08/04/2020 Influenza Vaccine (#1) 2024 Hypertension/CHF/CAD Annual BMP Blood Test 02/08/2025 02/09/2024 Osteoporosis Screening (Bone Density Screening) 08/15/2031 08/14/2021 DTaP,Tdap,and Td Vaccines (2 - Td or Tdap) 06/27/2033 06/28/2023 Zoster Vaccines Completed 01/10/2019, 11/11/2018, 10/31/2013 HIB Vaccines Aged Out No longer eligi ble based on patient's age to complete this topic HPV Vaccines Aged Out No longer eligi ble based on patient's age to complete this topic Hepatitis A Vaccines Aged Out No long er eligible based on patient's age to complete this topic Hepatitis B Vaccines Aged Out No long er eligible based on patient's age to complete this topic IPV Vaccines Aged Out No longer eligi ble based on patient's age to complete this topic MMR Vaccines Aged Out No longer eligi ble based on patient's age to complete this topic Meningococcal ACWY Vaccine Aged Out N o longer eligible based on patient's age to complete this topic Meningococcal B Vaccine Aged Out No l onger eligible based on patient's age to complete this topic RSV Immunization Patients Under 20 months Aged Out No longer eligible b ased on patient's age to complete this topic Varicella Vaccines Aged Out No longer eligible based on patient's age to complete this topic Medical Devices Implanted Type Area Orchestra Director Device Identifier Shelf Expiration Date Model / Serial / Lot Cement Bone Surg Simplex Radiopq Stry-How [id number] Implanted:Qty: 1 on 02/07/2022 by Roderick Carrion MD Right: Knee [employer] [id number] 03/06/2023 6191-1-010 / / [id number] Cement Bone Surg Simplex Radiopq [facility]-How [id number] Implanted:Qty: 1 on 02/07/2022 by Roderick Carrion MD Right: Knee [employer] [id number] 03/06/2023 6191-1-010 / / [id number] Knee Pat Symmetric X3 8x27mm [facility] [id number] Implanted:Qty: 1 on 02/07/2022 by Roderick Carrion MD Right: Knee [employer] [id number] 01/02/2027 5550-G-278 / / [id number] Tibial Bearing Insert Ps 10mm Stry-Howm [id number] Implanted:Qty: 1 on 02/07/2022 by Roderick Carrion MD Right: Knee [employer] [id number] 03/09/2023 5532-G-210 -E / / [id number] Knee Tib Base Plt Trthln Sz 2 Stry-Howm [id number] Implanted:Qty: 1 on 02/07/2022 by Roderick Carrion MD Right: Knee [employer] [id number] 10/01/2026 5520-B-200 / / [id number] Peg Fix Femoral Distal Stry-Howm [id number] Implanted:Qty: 1 on 02/07/2022 by Roderick Carrion MD Right: Knee [employer] [id number] 12/13/2026 5575-X-000 / / [id number] Knee Fem Cr Trthln Sz 1 Rt Stry-Howm [id number] Implanted:Qty: 1 on 02/07/2022 by Roderick Carrion MD Right: Knee [employer] [id number] 12/07/2024 5515-F-102 / / [id number] Procedures Procedure Name Priority Date/Time Associated Diagnosis Comments CARDIAC EDUCATIONAL PSYCHOLOGY PROFESSOR W/ CONNECTION (MCOT) Routine 09/27/2024 12:36 PM EDT Palpitations ECG 12-LEAD Routine 09/09/2024 12:01 PM EDT Chest pain, unspecified type BASIC METABOLIC PANEL Routine 02/09/2024 2:16 PM EST Chest pain, unspecified from Last 3 Months or Most Recently Relevant to Health Maintenance Results * CARDIAC EDUCATIONAL PSYCHOLOGY PROFESSOR W/ CONNECTION (MCOT) (09/27/2024 12:36 PM EDT) Anatomical Region Laterality Modality Cardiac Diagnost ic Impressions 11/02/2024 3:53 PM EDT 1. The predominant rhythm was sinus, with sinus arrhythmia. 2. The average heart rate was 74 bpm, minimum heart rate was 50 bpm, maximum heart rate was 151 bpm. 3. Total VE burden: 0.9% consisting of singles, couplets, VE Bigeminy, & VE Trigeminy. 4. Total SVE burden: 0.6% consisting of singles, couplets, triplets, SVE Bigeminy, with Atrial Runs present. Longest run was about 10 seconds. 5. There were 0 patient triggered symptomatic events. Rare ectopy with rare atrial runs that were asymptomatic. Narrative 11/02/2024 3:53 PM EDT [facility] DIAGNOSTIC TESTING DEPARTMENT [address] [place] [phone] TEL: FAX: TYPE OF TEST: 30 day ROCT monitor. DATES OF MONITORIN09/24/2024- 10/28/2024 REQUESTING PHYSICIAN: Bonita Lamas NP PRIMARY CARE PROVIDER: SANDY Hager INDICATION: Palpitations Bonita Lamas NP [facility] [place] OCEDURES Final Result * ECG 12 lead (09/09/2024 12:01 PM EDT) 09/09/2024 11:0 1 AM EDT 09/09/2024 11:51 AM EDT Bonita Lamas ELECTRONIC INTELLIGENCE OFFICER ECG ORDERABLES Final Result GEMUSE * (ABNORMAL) Basic metabolic panel (02/09/2024 2:16 PM EST) Sodium 137 133 - 145 mmol/L LAB CHEMISTRY METHOD 02/09/2024 4:33 PM EST [facility] Potassium 4.0 3.5 - 5.5 mmol/L LAB CHEMISTRY METHOD 02/09/2024 4:33 PM [facility] Chloride 99 96 - 110 mmol/L LAB CHEMISTRY METHOD 02/09/2024 4:33 PM [facility] CO2 34(H) 21 - 32 mmol/L LAB CHEMISTRY METHOD 02/09/2024 4:33 PM [facility] Anion Gap 4 3 - 11 LAB CHEMISTRY METHOD 02/09/2024 4:33 PM [facility] Glucose 95 70 - 100 mg/dL LAB CHEMISTRY METHOD 02/09/2024 4:33 PM [facility] BUN 14 5 - 25 mg/dL LAB CHEMISTRY METHOD 02/09/2024 4:33 PM [facility] Creatinine 0.54 0.50 - 1.10 mg/dL LAB CHEMISTRY METHOD 02/09/2024 4:33 PM [facility] eGFR 99 >=60 mL/min/1. 73m2 LAB CHEMISTRY METHOD 02/09/2024 4:33 PM [facility] Comment:Calculation based on the Chronic Kidney Disease Epidemiology Collaboration (CKD-EPI) equation refit without adjustment for race. BUN/Creatinine Ratio 25.9 LAB CHEMISTRY METHOD 02/09/2024 4:33 PM [facility] Calcium 10.1 8.5 - 10.5 mg/dL LAB CHEMISTRY METHOD 02/09/2024 4:33 PM [facility] Blood Venous blood specimen / Unknown Venipuncture / Unknown 02/09/2024 2:16 PM EST 02/09/2024 4:33 PM EST Steven Esquivel MD LAB BLOOD ORDERABLES Marika de la cruz Result [facility] [address] [place] [address], [place] [phone] from Last 3 Months or Most Recently Relevant to Health Maintenance Insurance [address] [place] [id number] [employer] - [place] MEDICARE ADVANTAGE Advance Directives Documents on File Type Date Recorded Patient Pathology Manager Expl anation Health Care Decision (hx) 08/22/2009 AD [place] DIRECTIVE Health Care Decision (hx) 08/22/2009 AD [place] DIRECTIVE Health Care Decision (hx) 08/22/2009 AD [place] DIRECTIVE Health Care Decision (hx) 08/22/2009 AD [place] DIRECTIVE Health Care Decision (hx) 08/22/2009 AD [place] DIRECTIVE Health Care Decision (hx) 08/22/2009 AD [place] DIRECTIVE Health Care Decision (hx) 08/22/2009 AD [place] DIRECTIVE Health Care Decision (hx) 08/22/2009 AD [place] DIRECTIVE Health Care Decision (hx) 08/22/2009 AD [place] DIRECTIVE Health Care Decision (hx) 08/22/2009 AD [place] DIRECTIVE * Full Code - Default (Latest Code Status on File) Date Activated Date Inactivated Comments 02/12/2024 7:29 AM 02/12/2024 3:35 PM This is orde r is used when code status has not been discussed with the patient, or code status is otherwise unknown/unconfirmed To update the patient's code status, place a code status order. Do not modify or discontinue any currently active code status orders. Care Teams Chiseler Head Relationship Specialty Start Date End Date Reece Anglin [place] [address] [phone] PCP - General 07/09/23
--- OUTSIDE RECORDS SUMMARY | 2024-12-08 15:40 | XMS_ITS | Clinical Summary ---
Author Organization [facility] Address [address] [place] [address] Phone Care Team Providers Care Bid Writer Name Role Phone Pcp, Unknown Primary Care Provider Unavailabl e Social History Tobacco Use Types Packs/Day Years Used Date Smoking Tobacco: Never Assessed Education Answer Date Recorded Are you interested in more education? Not on uri e 08/03/2022 Are you concerned about learning? Not on file 08/03/2022 No 08/03/2022 No 08/03/2022 Digital Access Answer Date Recorded No 09/03/2022 No 09/03/2022 Reliable internet access at home? Not on file 09/03/2022 Device with a working camera? Not on file Comments Unknown Sex and Gender Information Value Date Recorded Sex Assigned at Not on file Legal Sex Female 12:21 PM EST Gender Identity Not on file Sexual Orientation Not on file Plan of Treatment Not on file Medical Devices Not on file Insurance [place] [id number] [facility] MEDICARE SUPPLEMENT MEDICARE PART A & B [facility] MEDICARE SUPPLEMENT MEDICARE PART A & B [facility] MEDICARE SUPPLEMENT MEDICARE PART A & B MEDICARE SUPPLEMENT MEDICARE PART A & B Member Subscriber Plan / Payer ( fective 2021-) Name:Andreaulinous, Deya Member ID:[id number] Relation to Subscriber:Self Name:Deya Vazquez Subscriber ID:[id number] Payer ID:[id number] Group ID:Not on file Type:Medicare Address: [employer] [address] MEDICARE SUPPLEMENT MEDICARE PART A & B MEDICARE SUPPLEMENT Care Teams Bid Writer Relationship Specialty Start Date End Date Pcp, Unknown PCP - General 03/13/22 Additional Source Comments The information contained in this document represents components of the legal health record. It is not the complete legal health record.[facility]
--- OUTSIDE RECORDS SUMMARY | 2024-12-08 15:40 | XMS_ITS ---
Author Name [facility] Organization Unknown History of Medication Use Medication Directions Dispensed Refills Start Date End Date Stat us Euflexxa 10 mg/mL (mw 2.4-3.6 million) intra-articular syringe Inject 10 mg by intra-articular route for 21 days. 09/15/2024 active lidocaine (PF) 10 mg/mL (1 %) injection solution Take 1 mL by injection route. 08/19/2024 active triamcinolone acetonide 40 mg/mL suspension for injection Take 40 mg by injection route. 08/19/2024 active Baby Aspirin 81 mg chewable tablet 1 tablet every day by oral route. 01/19/2023 active clonazepam 0.5 mg disintegrating tablet take 1 tablet as needed at bedtime 08/30/2022 3 active prednisone 10 mg tablet PLEASE SEE ATTACHED FOR DETAILED DIRECTIONS 3 completed tizanidine 4 mg capsule TAKE 1 CAPSULE BY MOUTH AT BEDTIME 3 completed tizanidine 4 mg capsule TAKE 1 CAPSULE BY MOUTH AT BEDTIME 3 completed tizanidine 4 mg tablet TAKE 1 TABLET BY MOUTH THREE TIMES A DAY NEEDED FOR SPASM 3 completed azithromycin 250 mg tablet 3 completed budesonide 0.5 mg/2 mL suspension for nebulization 3 completed methocarbamol 750 mg tablet 3 completed methylprednisolone 4 mg tablets in a dose pack TAKE 6 TABLETS ON DAY 1 DIRECTED ON PACKAGE AND DECREASE BY 1 TAB EACH DAY FOR A TOTAL OF 6 DAYS 3 completed metronidazole 250 mg tablet TAKE 1 TABLET BY MOUTH EVERY 8 HOURS UNTIL FINISHED 3 completed triamcinolone acetonide 0.5 % topical cream 02/06/20 2 3 completed arformoterol 15 mcg/2 mL solution for nebulization INALE 1 VIAL VIA NEBULIZER TWICE DAILY *NEED PART B INFO 3 active arformoterol 15 mcg/2 mL solution for nebulization INALE 1 VIAL VIA NEBULIZER TWICE DAILY *NEED PART B INFO 3 completed azithromycin 250 mg tablet TAKE 2 TABLETS BY MOUTH TODAY, THEN TAKE 1 TABLET DAILY FOR 4 DAYS 3 active budesonide 0.5 mg/2 mL suspension for nebulization INHALE 1 VIAL VIA NEBULIZER TWICE DAILY NEED PART B 3 active oxycodone 5 mg tablet TAKE 1 TABLET BY MOUTH EVERY 4 HOURS NEEDED FOR PAIN 3 completed oxycodone 5 mg tablet TAKE 1 TABLET BY MOUTH EVERY 4 HOURS NEEDED FOR PAIN 3 completed albuterol sulfate HFA 90 mcg/actuation aerosol inhaler INHALE 2 PUFFS INTO THE LUNGS EVERY 4 TO 6 HOURS NEEDED FOR 30 DAYS active albuterol sulfate HFA 90 mcg/actuation aerosol inhaler INHALE 2 PUFFS INTO LUNGS EVERY 6 HOURS NEEDED FOR WHEEZING AND SHORTNESS OF BREATH active alendronate 70 mg tablet TAKE 1 TABLET BY MOUTH WEEKLY DIRECTED active amlodipine 2.5 mg tablet active amoxicillin 500 mg capsule TAKE 2 CAPSULES BY MOUTH NOW THEN 1 CAPSULE EVERY 8 HRS UNTIL FINISHED active amoxicillin 875 mg tablet TAKE 1 TABLET BY MOUTH TWICE A DAY DIRECTED UNTIL FINISHED START 1 DAY BEFORE SURGERY active atorvastatin 10 mg tablet TAKE 1 TABLET BY MOUTH EVERY DAY active atorvastatin 10 mg tablet TAKE 1 TABLET BY MOUTH EVERY DAY active atorvastatin 20 mg tablet active chlorhexidine gluconate 0.12 % mouthwash RINSE WITH 15ML TWO TIMES PER DAY FOR 30 SECONDS THEN SPIT. START MORNING AFTER SURGERY DIRECTED active chlorthalidone 25 mg tablet active clonazepam 0.5 mg disintegrating tablet act farhad clonazepam 0.5 mg tablet TAKE 1 TABLET BY MOUTH EVERY DAY NEEDED active cyclobenzaprine 5 mg tablet TAKE 1 TABLET BY MOUTH THREE TIMES A DAY DIRECTED FOR 10 DAYS active cyclosporine 0.05 % eye drops in a dropperette LOCATION: BOTH EYES. INSTILL ONE DROP IN BOTH EYES TWICE A DAY active esomeprazole magnesium 40 mg capsule,delayed release TAKE 1 CAPSULE BY MOUTH TWICE A DAY active GaviLyte-G 236 gram-22.74 gram-6.74 gram-5.86 gram oral solution TAKE 4000 MLS BY MOUTH DIRECTED active GaviLyte-G 236 gram-22.74 gram-6.74 gram-5.86 gram oral solution TAKE 4000 MLS BY MOUTH DIRECTED active hydrocodone 5 mg-acetaminophen 325 mg tablet active pantoprazole 40 mg tablet,delayed release TAKE 1 TABLET BY MOUTH EVERY DAY active pantoprazole 40 mg tablet,delayed release TAKE 1 TABLET BY MOUTH TWICE A DAY active prednisone 20 mg tablet TAKE 2 TABLETS BY MOUTH EVERY DAY DIRECTED FOR 5 DAYS active prednisone 20 mg tablet TAKE 1 TABLET BY MOUTH EVERY DAY FOR 5 DAYS active prednisone 5 mg tablet PLEASE SEE ATTACHED FOR DETAILED DIRECTIONS active sulindac 150 mg tablet a ctive triamcinolone acetonide 0.5 % topical cream activ e valacyclovir 1 gram tablet TAKE 1 TABLET EVERY 12 HOURS BY ORAL ROUTE DIRECTED FOR 90 DAYS. active valacyclovir 1 gram tablet TAKE 1 TABLET BY MOUTH EVERY 12 HOURS DIRECTED active Allergies Allergen Reaction Severity Comment Documented Date Source Statu s BENADRYL [facility] MELOXICAM [facility] Problems Problem Status Onset Date Problem Type Date of Resolution Source Sprain thumb, metacarpophalangeal joint, ulnar collateral ligament active 2024-09-29 ProblemAct EN [facility] Osteoarthritis of left knee joint active 2024-09-01 ProblemAct [facility] History of right total knee replacement active 2022-08-19 ProblemAct [facility] Dislocation of joint of left thumb active 2024-09-29 ProblemAct [facility] Pain of right knee joint active 2023-09-26 ProblemAct [facility] 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 active 2022-08-30 ProblemAct [facility] Pes anserinus bursitis of left knee active 2024-08-19 ProblemAct [facility] Pain in left thumb active 2024-10-22 ProblemAct [facility] Dislocation of joint of finger active 2024-09-29 ProblemAct [facility] Encounters Encounter Type Encounter Reason Primary Diagnosis Location Date Ambulatory [facility] [place] 10/23/2024 Ambulatory [facility] [place] 10/18/2024 Ambulatory [facility] [place] 10/15/2024 Ambulatory [facility] [place] 09/30/2024 Ambulatory [facility] [place] 09/29/2024 Ambulatory [facility] [place] 09/28/2024 Ambulatory [facility] [place] 09/22/2024 Ambulatory [facility] [place] 09[facility]15/2024 Ambulatory [facility] [place] 09/14/2024 Ambulatory [facility] [place] 09/13/2024 Ambulatory [facility] [place] 09/13/2024 [facility]ulatory [facility] [place] 09/13/2024 [facility]ulatory [facility] [place] 08/31/2024 Ambulatory [facility] [place] 08/20/2024 Ambulatory [facility] [place] 08/20/2024 Ambulatory [facility] [place] 08[facility]19/2024 Ambulatory [facility] [place] 08/19/2024 Ambulatory [facility] [place] 09/29/2023 Ambulatory [facility] [place] 09/26/2023 Ambulatory [facility] [place] 02/11/2023 Ambulatory [facility] [place] 02/10/2023 Ambulatory [facility] [place] 02/05/2023 Ambulatory [facility] [place] 08/20/2022 Ambulatory [facility] [place] 08/20/2022 Ambulatory [facility] [place] 08/19/2022 Ambulatory [facility] [place] 08/16/2022 Ambulatory [facility] [place] 08/16/2022 Ambulatory [facility] [place] 08/16/2022 Ambulatory [facility] [place] 08/16/2022 Care Team Organization Name Specialty Phone Email Start Date End Da te [facility] [place] [facility] 03/07/2022 11/24/2023
--- OUTSIDE RECORDS SUMMARY | 2024-12-08 15:40 | XMS_ITS | Clinical Summary ---
Author Organization [facility] Address [address] [place] [address] Care Team Providers Care Desk Top Publisher Name Role Phone Rabia Rivera MD Primary Care Prov ider Allergies Active Allergy Reactions Criticality Noted Date Comments Diphenhydramine Other (See Comments) 01/30/2022 Irritable/Restless Meloxicam Nausea And Vomiting Medium 02/07/2022 Medications Medication Sig Dispensed Refills Start Date End Date Status BIOTIN PO Take 1 tablet by mouth daily. 0 04/10/2010 Active Fluticasone Furoate-Vilanterol (BREO ELLIPTA IN) Inhale 1 puff into the lungs daily as needed. Rarely uses 0 03/14/2021 Active acetaminophen (TYLENOL EXTRA STRENGTH) 500 MG tablet Take 1 tablet (500 mg total) by mouth every 6 (six) hours as needed. 0 Active albuterol 108 (90 Base) MCG/ACT inhaler albuterol sulfate HFA 90 mcg/actuation aerosol inhaler INHALE 1 TO 2 PUFFS INTO THE LUNGS Q 8 H PRN FOR SOB 0 Active atorvastatin (LIPITOR) tablet 10 mg Take 1 tablet (10 mg total) by mouth daily. 0 01/16/2021 Active benzonatate (TESSALON) 200 MG capsule benzonatate 200 mg capsule Take 1 capsule 3 times a day by oral route as directed for 10 days. 0 Active Calcium Carb-Cholecalcifer ol (Oyster Shell Calcium) 500-400 MG-UNIT TABS 1 tablet daily. 0 Active chlorthalidone (HYGROTON) 25 MG tablet Take 1 tablet (25 mg total) by mouth daily. 0 11/16/2021 Active cycloSPORINE, PF, (Cequa) 0.09 % SOLN Place 1 drop into both eyes 2 (two) times a day. 0 Active Multiple Vitamin (Multivitamin Adult) TABS Take 1 tablet by mouth daily. 0 Active valACYclovir (VALTREX) 1000 MG tablet valacyclovir 1 gram tablet TAKE 1 TABLET BY MOUTH EVERY 12 HOURS DIRECTED 0 Active UNABLE TO FIND Take 1 tablet by mouth daily. Med Name: VIVISCAL 0 Active aspirin EC 81 MG EC tablet Take 1 tablet (81 mg total) by mouth 2 (two) times a day after meals. 80 tablet 0 02/09/2022 Active oxyCODONE (ROXICODONE) 5 MG immediate release tablet Take 1 tablet (5 mg total) by mouth every 4 (four) hours as needed. 40 tablet 0 02/09/2022 Active senna-docusate (PERICOLACE) 8.6-50 MG Take 1 tablet by mouth 2 (two) times a day. 14 tablet 0 02/09/2022 Active oxyCODONE (ROXICODONE) 5 MG immediate release tablet Take 1-2 tabs every 4 hours as needed for pain 50 tablet 0 02/19/2022 Active calcium-vitamin D (OSCAL-500) 500-400 MG-UNIT per tablet daily. 0 Active amoxicillin (AMOXIL) 500 MG tablet Take 4 tabs 1 hour prior to dental appointment 20 tablet 3 02/21/2022 Active methocarbamol (ROBAXIN) 750 MG tablet Take 1 tablet (750 mg total) by mouth every 8 (eight) hours as needed. 90 tablet 1 02/27/2022 Active tiZANidine (ZANAFLEX) 2 MG capsule Take 1 capsule (2 mg total) by mouth 3 (three) times a day. 90 capsule 1 02/27/2022 Active clonazePAM (KlonoPIN) 0.5 MG tablet Take 1 tab each night at bedtime 30 tablet 0 04/02/2022 Active Active Problems Problem Noted Date Diagnosed Date Elective surgery 02/08/2022 Primary osteoarthritis of both knees 10/24/2021 Immunizations Name Administration Dates Next Due Covid-19 (Moderna 12+) 100mcg/0.5mL dosage 09/01,08/04/2020 Family History Medical History Relation Name Comments Hypertension Brother Cancer Father Hypertension Father Diabetes Mother Hypertension Mother Relation Name Status Comments Brother Father Mother Social History Tobacco Use Types Packs/Day Years Used Date Smoking Tobacco: Former Cigarettes 1 Q uit: 1979 Smokeless Tobacco: Never Tobacco Cessation:Counseling Given: Not Answered Alcohol Use Standard Drinks/Week Comments Not Asked 0 (1 standard drink = 0.6 oz pur e alcohol) Rarely Sex and Gender Information Value Date Recorded Sex Assigned at Female 01/30/2022 2:35 PM EDT Gender Identity Female 01/30/2022 2:35 PM EDT Sexual Orientation Choose not to disclose 2021 7:19 AM EDT Job Start Date Occupation Industry Not on file Not on file Not on file Last Filed Vital Signs Vital Sign Reading Time Taken Comments Blood Pressure 122/58 02/09/2022 4:25 AM EDT Pulse 80 02/09/2022 4:25 AM EDT Temperature 36.6 C (97.9 F) 02/09/2022 4:25 AM EDT Respiratory Rate 14 02/09/2022 4:25 AM EDT Oxygen Saturation 95% 02/09/2022 4:25 AM EDT Inhaled Oxygen Concentration - - Weight 62.6 kg (138 lb) 02/07/2022 7:27 AM EDT Height 147.3 cm (4' 10 ) 02/07/2022 7:27 AM EDT Body Mass Index 28.84 02/07/2022 7:27 AM EDT Plan of Treatment Health Maintenance Due Date Last Done Comments Hepatitis C Screening 1952 Depression Screening 1964 Preventative Health Evaluation 1970 DTap / Tdap / Td (1 - Tdap) 1971 Colon Cancer Screening (Colonoscopy) 1997 Breast Cancer Screening (Mammogram) 2002 Fall Risk Assessment 2017 Osteoporosis Screening (DEXA Scan) 2017 Pneumococcal Vaccine (1 of 1 - PCV) 2017 COVID-19 Vaccine (3 - 2024-2 6 season) 2024 09/01/2020, 08/04/2020 Influenza Vaccine (#1) 2024 RSV Adult > 60+ Yrs or (1 - 1-dose 75+ series) 2027 Shingrix-Zoster Vaccine Completed 01/11/20 19, 11/11/2018 Hepatitis B Vaccines Aged Out No long er eligible based on patient's age to complete this topic RSV Ped < 20 months Aged Out No longe r eligible based on patient's age to complete this topic Medical Devices Implanted Type Area As400 Programmer Device Identifier Shelf Expiration Date Model / Serial / Lot Cement Bone Surg Simplex Radiopq Stry-Howm [id number] - [id number] Implanted:Qty: 1 on 02/07/2022 by Roderick Carrion MD at [facility] and [facility] Right: Knee [employer] [id number] 03/06/2023 6191-1-010 / / [id number] Cement Bone Surg Simplex Radiopq Stry-Howm [id number] [id number] - [id number] Implanted:Qty: 1 on 02/07/2022 by Roderick Carrion MD at [facility] and [facility] Right: Knee [employer] [id number] 03/06/2023 6191-1-010 / / [id number] Knee Pat Symmetric X3 8x27mm Stry-Howm [id number] - [id number] Implanted:Qty: 1 on 02/07/2022 by Roderick Carrion MD at [facility] and [facility] Right: Knee [employer] [id number] 01/02/2027 5550-G-278 / / [id number] Tibial Bearing Insert Ps 10mm Stry-Howm [id number] - [id number] Implanted:Qty: 1 on 02/07/2022 by Roderick Carrion MD at [facility] and [facility] Right: Knee [employer] [id number] 03/09/2023 5532-G-210 -E / / [id number] Knee Tib Base Plt Trthln Sz 2 Stry-Howm [id number] - [id number] Implanted:Qty: 1 on 02/07/2022 by Roderick Carrion MD at [facility] and [facility] Right: Knee [employer] [id number] 10/01/2026 5520-B-200 / / [id number] Peg Fix Femoral Distal Stry-Howm [id number] - [id number] Implanted:Qty: 1 on 02/07/2022 by Roderick Carrion MD at [facility] [place] Right: Knee [employer] [id number] 12/13/2026 5575-X-000 / / [id number] Knee Fem Cr Trthln Sz 1 Rt [facility]-How [id number] - [id number] Implanted:Qty: 1 on 02/07/2022 by Roderick Carrion MD at [facility] [place] Right: Knee [employer] [id number] 12/07/2024 5515-F-102 / / [id number] Advance Directives For more information, please contact: [phone] Latest Code Status on File Code Status Date Activated Date Inactivated Comments Full Code 02/07/2022 12:17 PM 02/09/2022 9:25 PM This code status was ascertained in the following way: discussion with patient . Code Status History Code Status Date Activated Date Inactivated Comments Full Code 02/07/2022 7:11 AM 02/07/2022 12:17 PM This code status was ascertained in the following way: discussion with patient . Care Teams Desk Top Publisher Relationship Specialty Start Date End Date Rabia Rivera MD [address] [address] PCP - General Internal Medicine 10/02/21
== END 2024-12-08 14:32 | disposition home or self-care (01) ==
LOC: HO.HNS 13:26
PROVIDERS: PCP Registered Nurse; Visit Provider Neurological Surgery
DX: M54.17 Radiculopathy, lumbosacral region (principal)
CPT/HCPCS: 99213

== ENCOUNTER → 2024-12-08 13:26 | Outpatient (BNVA) | payer MEDICARE, SELFPAY | PROVIDERS: PCP Registered Nurse; Visit Provider Neurological Surgery | DX: M54.17 Radiculopathy, lumbosacral region (principal) | CPT/HCPCS: 99212 ==